=== PATIENT | female | born 1950 | race Caucasian/White ===

== ENCOUNTER → 2019-07-19 13:50 | Outpatient (CLI) | payer MEDICARE, MEDICAID, SELFPAY ==
--- NOTE | 2019-07-19 13:55 | VDUE_ITS ---
Reason For Study: ESRD, Pre op Right Arm Left Arm Right Cephalic Vein at the wrist measures Left Cephalic Vein at the wrist measures 0.13 x 0.13 cm. 0.18 x 0.18 cm. Right Cephalic Vein in the forearm measures Left Cephalic Vein in the forearm measures 0.19 x 0.20 cm. 0.25 x 0.23 cm. Right Cephalic Vein below antecub measures Left Cephalic Vein below antecub measures 0.27 x 0.25 cm. 0.25 x 0.24 cm. Right Cephalic Vein above antecub measures Left Cephalic Vein above antecub measures 0.19 x 0.22 cm. 0.21 x 0.21 cm. Right Cephalic Vein mid bicep measures 0.19 Left Cephalic Vein at mid bicep measures x 0.20 cm. 0.21 x 0.25 cm. Right Cephalic Vein at the shoulder measures Left Cephalic Vein at the shoulder measures 0.18 x 0.19 cm. 0.31 x 0.30 cm. Right Basilic Vein at the origin measures Basilic vein at origin measures 0.39 x 0.40 0.16 x 0.16 cm. cm. Right Basilic Vein mid bicep measures 0.18 x Basilic vein at bicep measures 0.34 x 0.35 0.18 cm. cm. Right Basilic Vein above antecub measures Basilic vein above antecub measures 0.31 x 0.20 x 0.21 cm. 0.34 cm. Right Brachial artery measures 0.41 x 0.44 Left Brachial artery measures 0.41 x 0.40 cm cm with a velocity of 78.6 cm/sec. with a velocity of 80.6 cm/sec. Right Radial artery measures 0.19 x 0.18 cm Left Radial artery measures 0.11 x 0.12 cm with a velocity of 46.2 cm/sec. with a velocity of 115.1 cm/sec. Interpretation Summary Patent and compressible bilateral upper extremity cephalic and basilic veins as noted. Bilateral cephalic veins appear to be marginal in diameter. Right upper arm basilic vein is diminutive. Left upper arm basilic vein is adequate. Bilateral brachial arteries have adequate diameter and flow. Bilateral radial arteries are diminutive in size Ordering Physician: Patricia Malcolm Referring Physician: Citlali Nguyen Performed By: Leslie Vázquez RVT ?
== END ==
PROVIDERS: Family Provider Nurse Practitioner Family; PCP Nurse Practitioner Family; Referring Provider Student in an Organized Health Care Education/Training Program; Visit Provider Student in an Organized Health Care Education/Training Program
DX: Z01.818 Encounter for other preprocedural examination (principal); N18.6 End stage renal disease
CPT/HCPCS: 93970; 93971; G0365

== ENCOUNTER 2019-08-06 19:02 | Inpatient (IN) | payer MEDICARE, MEDICAID, SELFPAY ==
[2019-08-06 18:23] VITALS: BP 194/67; PULSE 85; RESP 20; TEMP 37.4; O2SAT 100; BMI 40.3
--- NOTE | 2019-08-06 19:13 | HP.PCM_ITS ---
History of Present Illness Date of Admission: 08/06/19 Chief Complaint: coughing. vomiting. The patient is a 68 year old F who on the third and today had coughing fits that led to vomiting. Current several occasions. Presented to [facility] with complaints and underwent a work-up. Work-up showed consolidation in the left thorax which may be chronic, according to the emergency room physician. Patient did receive IV fluids as well as hydromorphone. Patient states that she still feels nauseated and but is having vomiting but because of this she missed her dialysis on Tuesday and Tuesday. Patient normally goes to dialysis every Tuesday. They try to contact [facility] but it was. Patient second choice was here. Patient was to see Dr. Bobo for evaluation of fistula tomorrow. Patient denies similar symptoms in the past. [] Past Medical History Medical History: Medical History (Last Updated 08/06/19 @ 19:15 by Moe Wise DO) Diet-controlled diabetes mellitus E11.9 ESRD (end stage renal disease) N18.6 HTN (hypertension) I10 Allergies No Known Allergies Allergy (Verified 08/06/19 18:46) Lives: With Family Smoking Status: Former smoker Tobacco Use: Non-smoker Alcohol: None Drugs: None - *Family History Maternal History Items: - - No known kidney disease Review of Systems Constitutional: Reports: Anorexia, Malaise. Denies: Chills, Fever, Night Sweats Eyes: Denies: Blurred vision, Double vision HEENT: Denies: Head Aches, Sinus Congestion, Sinus Drainage Cardiovascular: Reports: Edema. Denies: Chest Pain Respiratory: Reports: Cough. Denies: Shortness of Breath Gastrointestinal: Reports: Nausea, Vomiting. Denies: Abdominal Pain Genitourinary: Reports: Dysuria. Denies: Frequency Musculoskeletal: Denies: Joint Pain, Joint Tenderness Skin: Denies: Rash, Wounds Neurological: Denies: Numbness, Tingling, Focal weakness Psychiatric: Denies: Anxiety, Depression Hematologic/ Lymphatic: Denies: Easy Bruising, Easy Bleeding, Hx of blood clot Comment: States that she has difficulty getting around her house and requires on family to assist her with activities of daily living. Review systems are otherwise negative except for as mentioned above and in the HPI. Patient does not recollect her current medications at this time. VTE Information - Inpt Only VTE Present on Admission: No VTE Mechan Device Prophylaxis: None VTE Pharm Prophylaxis ordered?: Yes - Physical Exam Vitals/I&O's: Vital Signs Temp Pulse Resp BP Pulse Ox 37.4 C H 85 20 H 194/67 H 100 08/06/19 18:23 08/06/19 18:23 08/06/19 18:23 08/06/19 18:23 08/06/19 18:23 Oxygen Flow Rate (L/min) 4 Oxygen Delivery Method Nasal Cannula Weight: 100 kg Body Mass Index (BMI) 40.3 General: Alert, Cooperative, - - Peers older than stated age. Afebrile. No respiratory distress. No conversational dyspnea. HEENT: Atraumatic, Normocephalic Oral: Moist Mucosa, No Gingival or Mucosal Lesions/ Ulcerations Neck: No Nodes, Trachea Midline Lungs: Clear to auscultation, Normal air movement, No rhonchi, No wheeze, No rales Cardiovascular: Regular rate, Regular Rhythm, Normal S1, Normal S2, No murmurs Abdomen: Bowel Sounds Present, Soft, Non Tender, Non-Distended, No Hepato- splenomegaly Extremities: No edema, No Calf Tenderness Skin: No rashes, No breakdown Musculoskeletal: Cachexia, Muscle Wasting Neurological: Deep Tendon Reflexes 2+/4 and Symmetrical, Muscle tone normal Psych/Mental Status: Appropriate, Flat Affect Chest x-ray report from outside hospital reports opacification in the left thorax. Prominent interstitium present in the right lower thorax. I was unable to upload the images on the computer. Labs: CBC: White count 17.1, hemoglobin 11, platelets 360 BMP: Sodium 136, potassium 4.9, CO2 23.8, glucose 107, creatinine 3.1 CRP of 1.69, lipase 7, lactate of 10.9 which is within normal limits of their parameters which is 4.5-18 C. difficile toxin negative, C. difficile antigen negative Current Medications Acetaminophen (Tylenol) 650 mg PO Q6H PRN PRN PRN Reason: Pain Score 1-3/Temp > 100.7 F Dextrose (D50w Syringe) 0 gm IV X1 PRN; Protocol PRN Reason: Hypoglycemia Glucagon () 1 mg IM .X1 PRN PRN Reason: Hypoglycemia Guaifenesin/Codeine Phosphate (Robitussin Ac) 5 ml PO Q6H PRN PRN PRN Reason: coughing fits Insulin Human Lispro (Humalog Kwikpen (Bkc)) 0 unit SC TIDAC MARTHA; Protocol Ondansetron HCl (Zofran) 4 mg IV Q8H PRN PRN PRN Reason: NAUSEA/VOMITING Sodium Chloride () 10 - 40 ml IV UD PRN PRN Reason: SALINE FLUSH Assessment/Plan 1. Sepsis * Present on admission * White count of 17,000+ a respiratory rate of greater than 20 to meet 2 out of 4 Sirs criteria * May be related with pneumonia versus a viral etiology * Follow-up cultures and titers and treat accordingly 2. Possible gram-negative pneumonia * Per the emergency room physician, patient has chronic opacification of the left thorax but I do not have any prior x-rays to compare to * Given the septic picture, we will treat her for suspected healthcare acquired pneumonia as patient is dialysis patient with Pipracil and/tazobactam * Pulmonary toilet with chest physiotherapy and bronchodilators * Check sputum culture and antigens for Streptococcus and Legionella 3. End-stage renal disease * On hemodialysis every Tuesday * She missed her last 2 dialysis sessions because of her vomiting * Discussed with Dr. Schwartz, who will see the patient in consultation * Despite missing her to last dialysis sessions, electrolytes are fairly unremarkable * Patient was to follow-up with Dr. Bobo for fistula evaluation on the . I told patient that that will need to be rescheduled for another time as outpatient. 4. Hypertension * Will need to continue with her home medications once were able to obtain that * Will have as needed medications available 5. Diet-controlled diabetes * Check blood sugars with this and treat with sliding scale if necessary 6. Debility * Not sure how far off patient is from her baseline but her baseline sounds pretty poor * Physical and occupational therapy evaluate and treat * Patient states clearly that she does not want to go somewhere for rehab so ultimately the plan would be for her to return home with or without home care 7. VTE prophylaxis: Moderate risk. Subcu heparin Code Visit Inpatient E&M: 03301 Init Hosp L3
--- NOTE | 2019-08-06 19:28 | NURSING ---
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
--- NOTE | 2019-08-06 20:15 | RAD_ITS ---
STUDY: X-RAY CHEST REASON FOR EXAM: Female, 68 years old. NAUSEA AND VOMITING, SOB. TECHNIQUE: AP and lateral views of the chest. The images are under penetrated. COMPARISON: None. FINDINGS: Right temporary dialysis catheter via right internal jugular approach, catheter tips over the cavoatrial junction/upper right atrium level. Patient is rotated. Opacification in the left base along the left lower chest wall and posterior sulcus. There is no demonstrated pleural abnormality. Normal size heart. Normal mediastinum and magalie. Normal visualized pulmonary arteries. There is atherosclerotic calcification of the aortic arch with tortuosity. The upper abdominal soft tissues are obscured. Obesity. There is demineralization of osseous structures. RAD/Chest PA and Lateral IMPRESSION: Pleural fluid and/or atelectasis in the left base. No pulmonary edema or congestive heart failure. Osteopenia. Electronically Signed: Eli Nelson MD at 6:48 EST , Service support ,
[2019-08-06 21:02] VITALS: BP 181/72; PULSE 93; RESP 18; TEMP 37.2; O2SAT 94
[2019-08-06 21:26] LABS: Bacteria 0 SEEN /hpf (None Seen); Mucous, Urine 0 SEEN /hpf (<or=2+); Red Blood Cells-Urine 0 SEEN /hpf (0-5); Squamous Epithelial Cells - UA 0 SEEN /hpf (5-10)
[2019-08-06 21:52] LABS: Color, Urine Yellow (Yellow); Glucose, Dipstick 50 mg/dl (Normal); Ketone-Dipstick Negative (Negative); Leukocyte Esterase-Dipstick 500 /ul (Negative); Nitrite-Dipstick Negative (Negative); Occult Blood-Urine 250 /ul (Negative); Protein-Dipstick 500 mg/dl (Negative); Specific Gravity, Urine 1.015 (1.002-1.030); Urine Bilirubin Dipstick Negative (Negative); Urine Clarity Turbid (Clear); Urine Urobilinogen Normal (Normal)
[2019-08-06 21:53] LABS: White Blood Cells >100 SEEN /hpf (0-5)
[2019-08-06] MEDS: Heparin Injection (Vial) 5,000 UNIT/ML VIAL 5000 UNIT SC (22:01)
[2019-08-06] MEDS: Nystatin Powder 15gm Bottle 1 APPLIC TOPICAL (22:01)
[2019-08-06] MEDS: Acetaminophen 325 MG Tablet 650 MG PO (22:01)
[2019-08-06] MEDS: amLODIPine 5 MG Tablet PO (22:01)
[2019-08-06] MEDS: Atorvastatin Calcium 40 MG Tablet PO (22:01)
[2019-08-06] MEDS: Pantoprazole Sodium 40 MG Tablet PO (22:02)
[2019-08-06] MEDS: Zolpidem Tartrate 5 MG Tablet PO (22:02)
[2019-08-06] MEDS: Clonidine HCl 0.1 MG, Clonidine HCl 0.2 MG 0.3 MG PO (22:02)
[2019-08-06] MEDS: Meloxicam 15 MG Tablet PO (22:02)
[2019-08-06 22:48] VITALS: PULSE 79; RESP 18; O2SAT 97
[2019-08-06] MEDS: Ipratropium/Albuterol Sulfate 3 ML AMPUL.NEB INHALATION (22:48)
[2019-08-07] VITALS (9 sets, daily range): BP systolic 130–153; BP diastolic 62–96; PULSE 65–111; RESP 16–22; TEMP 37.1–37.8; O2SAT 96–100
[2019-08-07 06:22] LABS: Absolute Lymphocyte Count 1.01 X10^3/uL (0.83-4.51); Absolute Neutrophil Count 9.8 X10^3/uL (2.0-7.7); Basophil# 0.05 X10^3/uL; Basophil% 0.4 % (0-1); Eosinophil# 0.02 X10^3/uL; Eosinophils% 0.2 % (0-5); Hemoglobin 9.5 g/dL (12.0-15.0); Lymphocyte # 1.01 X10^3/ul (4.0); Lymphocyte % 8.7 % (19-41); Mean Corp Hgb Conc 28.8 g/dL (32-36); Mean Corpuscular Hgb 30.9 pg (27.0-32.0); Mean Corpuscular Volume 107.5 fL (81-99); Mean Platelet Vol. 9.9 fl (6.2-12.0); Monocyte# 0.71 X10^3/uL; Monocyte% 6.1 % (0-10); NRBC Flagged by Analyzer 0 % (0-5); Neutrophil % 84.3 % (47-70); POSITIVE MORPHOLOGY YES; Platelet Count 217 K/mm3 (150-450); RBC Distribution Width CV 16.4 % (11.6-14.6); RBC Distribution Width SD 65.5 fl (35.1-43.9); Red Blood Count 3.07 M/mm3 (4.2-5.4); White Blood Count 11.6 K/mm3 (4.4-11.0)
[2019-08-07 06:50] LABS: ALB/GLOB Ratio 0.6 RATIO (0.9-2.4); AST(SGOT) 14 U/L (15-37); Alanine Aminotransfer ALT/SGPT 7 U/L (13-56); Albumin, Serum 1.8 g/dL (3.2-5.0); Alkaline Phosphatase 68 U/L (45-117); Anion Gap 8 (5-15); BUN 39 mg/dL (7-18); BUN/Creat Ratio 12.1 RATIO (10-20); Calcium,Total 7.9 mg/dL (8.5-10.1); Chloride 108 mmol/L (98-107); Creatinine, Serum 3.23 mg/dL (0.55-1.02); Differential Indicated SCAN CRITERIA MET; EST Glomerular Filtration Rate 15 mL/min (>60); Est Glom Filt Rate - Afr Amer 18 mL/min (>60); Globulin 3.2 g/dL (2.2-4.2); Glucose 83 mg/dL (74-106); Potassium 4.8 mmol/L (3.5-5.1); Sodium Level 140 mmol/L (136-145); Thyroid Stim Hormone (TSH) 1.14 uIU/mL (0.358-3.74)
[2019-08-07 07:07] LABS: Differential Comment SCANNED; Hypochromasia 2+; Macrocytosis 3+; Microcytosis 1+; Schistocytes RARE
[2019-08-07] MEDS: Ipratropium/Albuterol Sulfate 3 ML AMPUL.NEB INHALATION ×4 (07:57→19:25)
[2019-08-07 08:11] LABS: Hemoglobin A1c 4.3 % (4.2-6.3)
[2019-08-07 08:19] LABS: Vitamin D,25 Hydroxy 6.8 ng/mL (29.95-100.01)
[2019-08-07] MEDS: Nystatin Powder 15gm Bottle 1 APPLIC TOPICAL ×2 (09:18→22:18)
[2019-08-07] MEDS: Citalopram 40 MG TABLET PO (09:31)
[2019-08-07] MEDS: Calcitriol 0.25 MCG Capsule PO (09:31)
[2019-08-07] MEDS: amLODIPine 5 MG Tablet PO ×2 (09:32→22:18)
[2019-08-07] MEDS: Clopidogrel Bisulfate 75 MG Tablet PO (09:32)
[2019-08-07] MEDS: Heparin Injection (Vial) 5,000 UNIT/ML VIAL 5000 UNIT SC ×2 (09:32→22:18)
[2019-08-07] MEDS: Acetaminophen 325 MG Tablet 650 MG PO ×2 (09:38→22:18)
--- NOTE | 2019-08-07 11:40 | CASEMGMT ---
RN CM Assessment Presentation: Sepsis, possible pneumonia. Intro role of CM and purpose of RN CM assessment to patient in room. Pt is sleepy, unable to participate fully in assessment. Pt gave permission for RN CM to contact Daughter. -Call to Daughter Michelle. Intro role of CM to her. Demographics, PCP and Pharmacy verified. Per Michelle, pt is bedbound. Does very little sitting up as she is easily fatigued. Family lifts her into wheelchair and vehicle to transfer her to Dialysis. Daughter states she does not wish to consider SNF on dc even for short term stay at this time. States pt had been to [facility] and did not have good experience. RN CM let daughter know recommendation was for short term SNF stay, but Home Health could be considered. PCP: Citlali Nguyen TELETYPEWRITER OPERATOR Specialists: Dr. Bobo-fistula placement evaluation. Daughter cancelled appt for today and will make f/u appt if needed. [facility] Prescription Benefit: yes Dialysis: [facility], [facility] LNOK: Daughter, Michelle Brown Living Arrangements: Lives with daughter in one story home. Daughter does all care needs and transportation. Transportation: Family drives DME: Hospital bed, trapeze, wheelchair HHC/SNF: HHC and SNF @ [facility] in past. Would like HHC again on dc. List of choices in area reviewed with daughter over the phone. Daughter did not remember which agency she used before, and would like to try and find their name prior to CM setting up Home Health.. SW Referral: Pt has passport services through [facility]. Patient DC goals: Home DC PLAN: undetermined. Recommendation is for SNF if daughter reconsiders, or HHC RN/PT if pt returns home. Veda WAYN RN ACM
--- NOTE | 2019-08-07 12:03 | CASEMGMT ---
Addendum entered by Yonis Bal 08/07/19 13:09: Call received from daughter Michelle, stating [facility] provided home therapy for pt in past and this would be first choice. [facility] phone: [phone]. Original Note: 08/07/19 11:40 - Case Management Note by MallyQuintina Acct Num: [id number] : 1950 Patient Age: 68 RN CM Assessment Presentation: Sepsis, possible pneumonia. Intro role of CM and purpose of RN CM assessment to patient in room. Pt is sleepy, unable to participate fully in assessment. Pt gave permission for RN CM to contact Daughter. -Call to Daughter Michelle. Intro role of CM to her. Demographics, PCP and Pharmacy verified. Per Michelle, pt is bedbound. Does very little sitting up as she is easily fatigued. Family lifts her into wheelchair and vehicle to transfer her to Dialysis. Daughter states she does not wish to consider SNF on dc even for short term stay at this time. States pt had been to [facility] and did not have good experience. RN CM let daughter know recommendation was for short term SNF stay, but Home Health could be considered. PCP: Citlali Nguyen, ADULT NEUROPSYCHOLOGIST Specialists: Dr. Bobo-fistula placement evaluation. Daughter cancelled appt for today and will make f/u appt if needed. [facility] Prescription Benefit: yes Dialysis: MWF, [facility] L[facility]K: Daughter, Michelle Brown Living Arrangements: Lives with daughter in one story home. Daughter does all care needs and transportation. Transportation: Family drives DME: Hospital bed, trapeze, wheelchair HHC/SNF: HHC and SNF @ [facility] in past. Would like HHC again on dc. List of choices in area reviewed with daughter over the phone. Daughter did not remember which agency she used before, and would like to try and find their name prior to CM setting up Home Health.. SW Referral: Pt has passport services, possible SNF placement Patient DC goals: Home DC PLAN: undetermined. Recommendation is for SNF if daughter reconsiders, or HHC RN/PT if pt returns home. Veda BSN RN ACM
[2019-08-07 12:21] LABS: Bedside Glucose 90 mg/dL (70-110)
--- NOTE | 2019-08-07 12:32 | PN_ITS ---
<Stephanie Weems - Last Filed: 08/07/19 12:42> Subjective: Patient seen and examined. Having shaking chills. Denies fever. Denies other current complaints. - Physical Exam Vitals/I&O's: Vital Signs Temp Pulse Resp BP Pulse Ox 100.1 F H 66 20 H 150/69 H 99 08/07/19 09:20 08/07/19 11:14 08/07/19 11:14 08/07/19 09:20 08/07/19 09:20 Oxygen Flow Rate (L/min) 2 Oxygen Delivery Method Nasal Cannula Weight: 220 lb 7.396 oz Body Mass Index (BMI) 40.3 Intake and Output for Last 24 Hours 08/05/19 08/06/19 08/07/19 23:59 23:59 23:59 Intake Total 500 / 500 Balance 500 / 500 General: Alert, Oriented x3, Cooperative HEENT: Atraumatic, PERRLA, EOMI, Normocephalic Neck: Supple, No JVD, Negative Carotid Bruits Lungs: Clear to auscultation, Diminished Cardiovascular: Regular rate, Regular Rhythm, Normal S1, Normal S2, No murmurs Abdomen: Bowel Sounds Present, Soft, Non Tender, Non-Distended, Obese Extremities: No clubbing, No cyanosis, No edema, Capillary Refill Less than 3 Seconds Skin: No rashes, No breakdown Musculoskeletal: No Tenderness to Palpation of Joints or Extremities Neurological: Cranial nerves II-XII grossly intact, Neuro grossly intact Psych/Mental Status: Normal Affect, Appropriate Microbiology Past 72 Hours 08/06/19 19:59 Blood Culture (Wb) - Venous Blood Culture - Preliminary 08/06/19 19:49 Blood Culture (Wb) - Venous Bacteria Detection (PCR) - Final Staphylococcus aureus mecA Resistance Marker 08/06/19 19:49 Blood Culture (Wb) - Venous Blood Culture - Preliminary 08/06/19 22:50 Mucosa - Nose Influenza Types A,B Direct FA (THAIS) - Final 08/06/19 20:48 Urine Catheter - Catheter Legionella Antigen - Final 08/06/19 20:48 Urine Catheter - Catheter Streptococcus pneumoniae Antigen (M - Final Laboratory Results 08/06/19 20:48: Urine Color Yellow, Urine Clarity Turbid, Urine pH 6.0, Ur Specific [place] 1.015, Urine Protein 500 H, Urine Glucose (UA) 50 H, Urine Ketones Negative, Urine Occult Blood 250 H, Urine Nitrite Negative, Urine B ilirubin Negative, Urine Urobilinogen Normal, Ur Leukocyte Esterase 500 H, Urine RBC 0 SEEN, Urine WBC >100 SEEN, Ur Squamous Epith Cells 0 SEEN, Urine Bacteria 0 SEEN, Urine Mucus 0 SEEN 08/07/19 05:30: WBC 11.6 H, RBC 3.07 L, Hgb 9.5 L, Hct 33.0 L, MCV 107.5 H, MCH 30.9, MCHC 28.8 L, RDW Std Deviation 65.5 H, RDW Coeff of Liza 16.4 H, Plt Count 217, MPV 9.9, Immature Gran % (Auto) 0.300, Neut % (Auto) 84.3 H, Lymph % (Auto) 8.7 L, Fult[place] % (Auto) 6.1, Eos % (Auto) 0.2, Baso % (Auto) 0.4, Absolute Neuts (auto) 9.8 H, Absolute Lymphs (auto) 1.01, Nucleated RBC % 0, Differential Comment SCANNED, Hypochromasia 2+, Microcytosis 1+, Macrocytosis 3+, Schistocytes RARE 08/07/19 05:30: Sodium 140, Potassium 4.8, Chloride 108 H, Carbon Dioxide 24.0, Anion Gap 8, BUN 39 H, Creatinine 3.23 H, Estim Creat Clear Calc 13.00, Est GFR (MDRD) Af Amer 18 L, Est GFR (MDRD) Non-Af 15 L, BUN/Creatinine Ratio 12.1, Glucose 83, Calcium 7.9 L, Total Bilirubin 0.40, AST 14 L, ALT 7 L, Alkaline Phosphatase 68, Total Protein 5.0 L, Albumin 1.8 L, Globulin 3.2, Albumin/Globulin Ratio 0.6 L, TSH 1.14 08/07/19 05:30: Vitamin D 25-Hydroxy 6.8 L 08/07/19 05:30: Hemoglobin A1c 4.3 08/07/19 11:39: POC Glucose 90 Current Medications Acetaminophen (Tylenol) 650 mg PO Q6H PRN PRN PRN Reason: Pain Score 1-10/Temp > 100.7 F Last Admin: 08/07/19 09:38 Dose: 650 mg Documented by: Albuterol Sulfate (Ventolin Aerosols) 2.5 mg INHALATION Q2H PRN PRN PRN Reason: SHORTNESS OF BREATH Albuterol/Ipratropium (Duoneb) 3 ml INHALATION Q4H.RT [facility] Last Admin: 08/07/19 11:14 Dose: 3 ml Documented by: Amlodipine Besylate (Norvasc) 5 mg PO BID [facility] Last Admin: 08/07/19 09:32 Dose: 5 mg Documented by: Atorvastatin Calcium (Lipitor) 40 mg PO QHS [facility] Last Admin: 08/06/19 22:01 Dose: 40 mg Documented by: Calcitriol (Rocaltrol) 0.25 mcg PO DAILY [facility] Last Admin: 08/07/19 09:31 Dose: 0.25 mcg Documented by: Citalopram Hydrobromide (Celexa) 40 mg PO DAILY [facility] Last Admin: 08/07/19 09:31 Dose: 40 mg Documented by: Clonidine 0.1 mg/ Clonidine 0. (2 mg) 0.3 mg PO Q6H PRN PRN PRN Reason: SBP > 180 Last Admin: 08/06/19 22:02 Dose: 0.3 mg Documented by: Clopidogrel Bisulfate (Plavix) 75 mg PO DAILY [facility] Last Admin: 08/07/19 09:32 Dose: 75 mg Documented by: Glucagon () 1 mg IM .X1 PRN PRN Reason: Hypoglycemia Guaifenesin/Codeine Phosphate (Robitussin Ac) 5 ml PO Q6H PRN PRN PRN Reason: coughing fits Heparin Sodium (Porcine) (Heparin Na) 5,000 unit SC Q12 [facility] Last Admin: 08/07/19 09:32 Dose: 5,000 unit Documented by: Piperacillin Sod/Tazobactam (Sod 3.375 gm/ Sodium Chloride) 50 mls @ 12.5 mls/hr IV Q8 [facility] Stop: 08/13/19 22:01 Last Infusion: 08/07/19 10:37 Dose: Infused Documented by: Dextrose (Dextrose 10%-Water) 250 mls @ 999 mls/hr IV .Q16M PRN; Protocol PRN Reason: HYPOGLYCEMIA Vancomycin IV Pharmacy to Dose (1 ea/ Sodium Chloride) 500 mls @ 250 mls/hr IV X1 PRN; Protocol PRN Reason: Rx to Dose Vancomycin HCl 1,500 mg/ (Sodium Chloride) 530 mls @ 250 mls/hr IV X1 ONE Stop: 08/07/19 15:07 Insulin Human Lispro (Humalog Kwikpen (Bkc)) 0 unit SC TIDAC [facility]; Protocol Last Admin: 08/07/19 11:43 Dose: Not Given Documented by: Meloxicam (Mobic) 15 mg PO QHS [facility] Last Admin: 08/06/19 22:02 Dose: 15 mg Documented by: Non-Formulary Medication (Cetirizine Hcl) 10 mg PO QHS [facility] Nystatin (Mycostatin Powder) 1 applic TOPICAL BID [facility]; Protocol Last Admin: 08/07/19 09:18 Dose: 1 applicatio Documented by: Ondansetron HCl (Zofran) 4 mg IV Q8H PRN PRN PRN Reason: NAUSEA/VOMITING Pantoprazole Sodium (Protonix) 40 mg PO QHS [facility] Last Admin: 08/06/19 22:02 Dose: 40 mg Documented by: Sodium Chloride () 10 - 40 ml IV UD PRN PRN Reason: SALINE FLUSH Zolpidem Tartrate (Ambien (Generic)) 5 mg PO QHS [facility] Last Admin: 08/06/19 22:02 Dose: 5 mg Documented by: Medical Necessity - Tobacco Use Smoking Status: Former smoker Tobacco Use: Non-smoker Assessment/Plan 1. Sepsis with MRSA bacteremia-unclear source. Sputum and urine culture pending. Chest x-ray admission with pleural fluid and/or atelectasis in the left base. Continue IV Zosyn and IV vancomycin. ID consult. Repeat blood cultures in a.m. 2. Possible healthcare acquired pneumonia-urine negative for strep and Legionella. On IV Zosyn and IV vancomycin as noted above. Albuterol and DuoNeb aerosols. Sputum culture pending. 3. End-stage renal disease on hemodialysis-nephrology consulted. Patient following with Dr. Bobo for fistula evaluation. 4. Hypertension-stable, continue amlodipine regimen. 5. Type 2 diabetes mellitus-diet controlled. 6. Debility- PT/OT. 7. Obesity-encouraged diet lifestyle modifications. 8. Depression-continue Celexa regimen. 9. Hyperlipidemia-continue statin. 10. GERD-continue omeprazole regimen. 11. Anemia of chronic disease-unknown baseline, trend CBC. DVT prophylaxis-heparin subcu This patient was seen by MAYDA Del Cid under the supervision of Dr. Corrigan. <Pollo Corrigan F - Last Filed: 08/07/19 13:09> - Physical Exam Vitals/I&O's: Vital Signs Temp Pulse Resp BP Pulse Ox 100.1 F H 66 20 H 150/69 H 99 08/07/19 09:20 08/07/19 11:14 08/07/19 11:14 08/07/19 09:20 08/07/19 09:20 Oxygen Flow Rate (L/min) 2 Oxygen Delivery Method Nasal Cannula Weight: 220 lb 7.396 oz Body Mass Index (BMI) 40.3 Intake and Output for Last 24 Hours 08/05/19 08/06/19 08/07/19 23:59 23:59 23:59 Intake Total 500 / 500 Balance 500 / 500 Microbiology Past 72 Hours 08/06/19 19:59 Blood Culture (Wb) - Venous Blood Culture - Preliminary 08/06/19 19:49 Blood Culture (Wb) - Venous Bacteria Detection (PCR) - Final Staphylococcus aureus mecA Resistance Marker 08/06/19 19:49 Blood Culture (Wb) - Venous Blood Culture - Preliminary 08/06/19 22:50 Mucosa - Nose Influenza Types A,B Direct FA (THAIS) - Final 08/06/19 20:48 Urine Catheter - Catheter Legionella Antigen - Final 08/06/19 20:48 Urine Catheter - Catheter Streptococcus pneumoniae Antigen (M - Final Laboratory Results 08/06/19 20:48: Urine Color Yellow, Urine Clarity Turbid, Urine pH 6.0, Ur Specific [place] 1.015, Urine Protein 500 H, Urine Glucose (UA) 50 H, Urine Ketones Negative, Urine Occult Blood 250 H, Urine Nitrite Negative, Urine Bilirubin Negative, Urine Urobilinogen Normal, Ur Leukocyte Esterase 500 H, Urine RBC 0 SEEN, Urine WBC >100 SEEN, Ur Squamous Epith Cells 0 SEEN, Urine Bacteria 0 SEEN, Urine Mucus 0 SEEN 08/07/19 05:30: WBC 11.6 H, RBC 3.07 L, Hgb 9.5 L, Hct 33.0 L, MCV 107.5 H, MCH 30.9, MCHC 28.8 L, RDW Std Deviation 65.5 H, RDW Coeff of Liza 16.4 H, Plt Count 217, MPV 9.9, Immature Gran % (Auto) 0.300, Neut % (Auto) 84.3 H, Lymph % (Auto) 8.7 L, [place] % (Auto) 6.1, Eos % (Auto) 0.2, Baso % (Auto) 0.4, Absolute Neuts (auto) 9.8 H, Absolute Lymphs (auto) 1.01, Nucleated RBC % 0, Differential Comment SCANNED, Hypochromasia 2+, Microcytosis 1+, Macrocytosis 3+, Schistocytes RARE 08/07/19 05:30: Sodium 140, Potassium 4.8, Chloride 108 H, Carbon Dioxide 24.0, Anion Gap 8, BUN 39 H, Creatinine 3.23 H, Estim Creat Clear Calc 13.00, Est GFR (MDRD) Af Amer 18 L, Est GFR (MDRD) Non-Af 15 L, BUN/Creatinine Ratio 12.1, Glucose 83, Calcium 7.9 L, Total Bilirubin 0.40, AST 14 L, ALT 7 L, Alkaline Phosphatase 68, Total Protein 5.0 L, Albumin 1.8 L, Globulin 3.2, Albumin/Globulin Ratio 0.6 L, TSH 1.14 08/07/19 05:30: Vitamin D 25-Hydroxy 6.8 L 08/07/19 05:30: Hemoglobin A1c 4.3 08/07/19 11:39: POC Glucose 90 Current Medications Acetaminophen (Tylenol) 650 mg PO Q6H PRN PRN PRN Reason: Pain Score 1-10/Temp > 100.7 F Last Admin: 08/07/19 09:38 Dose: 650 mg Documented by: Albuterol Sulfate (Ventolin Aerosols) 2.5 mg INHALATION Q2H PRN PRN PRN Reason: SHORTNESS OF BREATH Albuterol/Ipratropium (Duoneb) 3 ml INHALATION Q4H.RT [facility] Last Admin: 08/07/19 11:14 Dose: 3 ml Documented by: Amlodipine Besylate (Norvasc) 5 mg PO BID [facility] Last Admin: 08/07/19 09:32 Dose: 5 mg Documented by: Atorvastatin Calcium (Lipitor) 40 mg PO QHS [facility] Last Admin: 08/06/19 22:01 Dose: 40 mg Documented by: Calcitriol (Rocaltrol) 0.25 mcg PO DAILY [facility] Last Admin: 01/07/20 09:31 Dose: 0.25 mcg Documented by: Citalopram Hydrobromide (Celexa) 40 mg PO DAILY [facility] Last Admin: 08/07/19 09:31 Dose: 40 mg Documented by: Clonidine 0.1 mg/ Clonidine 0. (2 mg) 0.3 mg PO Q6H PRN PRN PRN Reason: SBP > 180 Last Admin: 08/06/19 22:02 Dose: 0.3 mg Documented by: Clopidogrel Bisulfate (Plavix) 75 mg PO DAILY [facility] Last Admin: 08/07/19 09:32 Dose: 75 mg Documented by: Glucagon () 1 mg IM .X1 PRN PRN Reason: Hypoglycemia Guaifenesin/Codeine Phosphate (Robitussin Ac) 5 ml PO Q6H PRN PRN PRN Reason: coughing fits Heparin Sodium (Porcine) (Heparin Na) 5,000 unit SC Q12 [facility] Last Admin: 08/07/19 09:32 Dose: 5,000 unit Documented by: Piperacillin Sod/Tazobactam (Sod 3.375 gm/ Sodium Chloride) 50 mls @ 12.5 mls /hr IV Q8 [facility] Stop: 08/13/19 22:01 Last Infusion: 08/07/19 10:37 Dose: Infused Documented by: Dextrose (Dextrose 10%-Water) 250 mls @ 999 mls/hr IV .Q16M PRN; Protocol PRN Reason: HYPOGLYCEMIA Vancomycin IV Pharmacy to Dose (1 ea/ Sodium Chloride) 500 mls @ 250 mls/hr IV X1 PRN; Protocol PRN Reason: Rx to Dose Vancomycin HCl 1,500 mg/ (Sodium Chloride) 530 mls @ 250 mls/hr IV X1 ONE Stop: 08/07/19 19:07 Insulin Human Lispro (Humalog Kwikpen (Bkc)) 0 unit SC TIDAC [facility]; Protocol Last Admin: 08/07/19 11:43 Dose: Not Given Documented by: Meloxicam (Mobic) 15 mg PO QHS [facility] Last Admin: 08/06/19 22:02 Dose: 15 mg Documented by: Non-Formulary Medication (Cetirizine Hcl) 10 mg PO QHS [facility] Nystatin (Mycostatin Powder) 1 applic TOPICAL BID [facility]; Protocol Last Admin: 08/07/19 09:18 Dose: 1 applicatio Documented by: Ondansetron HCl (Zofran) 4 mg IV Q8H PRN PRN PRN Reason: NAUSEA/VOMITING Pantoprazole Sodium (Protonix) 40 mg PO QHS [facility] Last Admin: 08/06/19 22:02 Dose: 40 mg Documented by: Sodium Chloride () 10 - 40 ml IV UD PRN PRN Reason: SALINE FLUSH Zolpidem Tartrate (Ambien (Generic)) 5 mg PO QHS [facility] Last Admin: 08/06/19 22:02 Dose: 5 mg Documented by: Code Visit Addendum: Dr. Corrigan I personally examined the patient and reviewed the chart. I agree with the above. 68-year-old female who presented to an outside hospital with significant episodes of coughing leading to vomiting. At that outside hospital she had a work-up that showed a consolidation in the left thorax which may be chronic per report. She also is a dialysis patient and was scheduled to see Dr. Wylie for evaluation of her fistula today. On admission she had signs of sepsis with unclear source however today her blood culture PCR came back positive for MRSA. She was started on vancomycin and continued on Zosyn. Her sputum cultures and antigens for strep and Legionella were negative however given this positive bacteremia result we will repeat blood cultures in the morning and start her on vancomycin today. We will consult infectious disease as well though source is unclear at the moment, UA was negative for any urine bacteria but positive for urine leukocyte esterase, urine culture is pending. Inpatient E&M: 46239 Subs Hosp L2
--- NOTE | 2019-08-07 12:52 | PCM.RX.CS ---
Consult Pharmacy has been consulted to manage selected antiobiotic: Vancomycin Type of Consult: New start Suspected Infection: Bacteremia Labs: Sodium 140 mmol/L (136-145) 08/07/19 05:30 Potassium 4.8 mmol/L (3.5-5.1) 08/07/19 05:30 Chloride 108 mmol/L (98-107) H 08/07/19 05:30 Carbon Dioxide 24.0 mmol/L (21.0-32.0) 08/07/19 05:30 Anion Gap 8 (5-15) 08/07/19 05:30 BUN 39 mg/dL (7-18) H 08/07/19 05:30 Creatinine 3.23 mg/dL (0.55-1.02) H 08/07/19 05:30 Est GFR (MDRD) Af Amer 18 mL/min (>60) L 08/07/19 05:30 Est GFR (MDRD) Non-Af 15 mL/min (>60) L 08/07/19 05:30 BUN/Creatinine Ratio 12.1 RATIO (10-20) 08/07/19 05:30 Glucose 83 mg/dL (74-106) 08/07/19 05:30 Microbiology: Microbiology 08/06/19 19:59 Blood Culture (Wb) - Venous Blood Culture - Preliminary 08/06/19 19:49 Blood Culture (Wb) - Venous Bacteria Detection (PCR) - Final Staphylococcus aureus mecA Resistance Marker 08/06/19 19:49 Blood Culture (Wb) - Venous Blood Culture - Preliminary 08/06/19 22:50 Mucosa - Nose Influenza Types A,B Direct FA (THAIS) - Final 08/06/19 20:48 Urine Catheter - Catheter Legionella Antigen - Final 08/06/19 20:48 Urine Catheter - Catheter Streptococcus pneumoniae Antigen (M - Final Weight used for dosin kg Estimated Creatinine Clearance: 18.1 Goal Trough: 15-20 mcg/mL Pharmacy Plan for Drug Dosing: Pt is on HD. Usual schedule is MWF. Has missed her last 2 sessions and will be dialyzed later today. Not sure when next HD session will occur at this time. 1. Give 1500mg dose today after dialysis 2. Check with nursing tomorrow to see when next dialysis session will be. 3. Order trough and 2nd dose of vancomycin once HD schedule has been established. 4. Pharmacy Service will continue to monitor and adjust dosing as required.
--- NOTE | 2019-08-07 13:11 | CASEMGMT ---
Social Work Note CATALINA placed a call to [facility]. Pt has PASSPORT services. Pt has Personal Care for 2 hours Tuesday, Tuesday, Tuesday and Tuesday through [facility]. Pt also has Meals on Wheels. Pt's CM is Tia Bookless ([phone]). SW placed a call to Tia and left her a message informing her of pt's admission to [facility]. CATALINA also placed a call to [facility] [place] office. CATALINA spoke with Iman who states pt was active with Palliative from end of summer last year to fall. Pt was then active with Hospice in May but revoked Hospice at a visit to [facility]. In July [facility] received another referral for Palliative but pt didn't sign with Palliative. Leslie Orellana [employer] TRADER, [employer] OPERATOR
--- NOTE | 2019-08-07 15:13 | CON.PCM_ITS ---
Consultation - Renal 08/07/19 PCP/ Referring MD: Requesting physician: Moe Wise MD Primary care physician: MAYDA Sanches Reason for Consultation:: ESRD HD MWF - History of Present Illness History of Present Illness: The patient is a 68 year old obese, debilitated F with ESRD due to diabetes on hemodialysis at [facility] dialysis in [facility] since June 2019 with tunneled dialysis catheter. Her primary ground instructor basic is Dr. Cam. Her last dialysis was in observance of holiday schedule. She then missed her treatment last Tuesday and yesterday. She was scheduled to see Dr. Bobo today as outpt for AVF placement. She is scheduled to receive her treatment today. She was seen in [facility] ER for complains of weakness, nausea, vomiting, diarrhea that started yesterday. She has shaking chills that started this admission with cough. Denied shortness of breath or chest pain. She was transferred to [facility] for continued management. She is unable to ambulate past 4 months. She lives at home with her daughter. - Allergies Allergies: Allergies loratadine Allergy (Verified 08/06/19 20:11) Unknown tape Allergy (Uncoded 08/06/19 20:11) Rash - Current Medications Current Medications: Current Medications Acetaminophen (Tylenol) 650 mg PO Q6H PRN PRN PRN Reason: Pain Score 1-10/Temp > 100.7 F Last Admin: 08/07/19 09:38 Dose: 650 mg Documented by: Albuterol Sulfate (Ventolin Aerosols) 2.5 mg INHALATION Q2H PRN PRN PRN Reason: SHORTNESS OF BREATH Albuterol/Ipratropium (Duoneb) 3 ml INHALATION Q4H.RT [facility] Last Admin: 08/07/19 11:14 Dose: 3 ml Documented by: Amlodipine Besylate (Norvasc) 5 mg PO BID [facility] Last Admin: 08/07/19 09:32 Dose: 5 mg Documented by: Atorvastatin Calcium (Lipitor) 40 mg PO QHS [facility] Last Admin: 08/06/19 22:01 Dose: 40 mg Documented by: Calcitriol (Rocaltrol) 0.25 mcg PO DAILY [facility] Last Admin: 08/07/19 09:31 Dose: 0.25 mcg Documented by: Cetirizine HCl (Zyrtec) 10 mg PO QHS [facility] Citalopram Hydrobromide (Celexa) 40 mg PO DAILY [facility] Last Admin: 08/07/19 09:31 Dose: 40 mg Documented by: Clonidine 0.1 mg/ Clonidine 0. (2 mg) 0.3 mg PO Q6H PRN PRN PRN Reason: SBP > 180 Last Admin: 08/06/19 22:02 Dose: 0.3 mg Documented by: Clopidogrel Bisulfate (Plavix) 75 mg PO DAILY [facility] Last Admin: 08/07/19 09:32 Dose: 75 mg Documented by: Glucagon () 1 mg IM .X1 PRN PRN Reason: Hypoglycemia Guaifenesin/Codeine Phosphate (Robitussin Ac) 5 ml PO Q6H PRN PRN PRN Reason: coughing fits Heparin Sodium (Porcine) (Heparin Na) 5,000 unit SC Q12 [facility] Last Admin: 08/07/19 09:32 Dose: 5,000 unit Documented by: Piperacillin Sod/Tazobactam (Sod 3.375 gm/ Sodium Chloride) 50 mls @ 12.5 mls/hr IV Q8 [facility] Stop: 08/13/19 22:01 Last Admin: 08/07/19 13:18 Dose: 12.5 mls/hr Documented by: Dextrose (Dextrose 10%-Water) 250 mls @ 999 mls/hr IV .Q16M PRN; Protocol PRN Reason: HYPOGLYCEMIA Vancomycin IV Pharmacy to Dose (1 ea/ Sodium Chloride) 500 mls @ 250 mls/hr IV X1 PRN; Protocol PRN Reason: Rx to Dose Vancomycin HCl 1,500 mg/ (Sodium Chloride) 530 mls @ 250 mls/hr IV X1 ONE Stop: 08/07/19 19:07 Insulin Human Lispro (Humalog Kwikpen (Bkc)) 0 unit SC TIDAC [facility]; Protocol Last Admin: 08/07/19 11:43 Dose: Not Given Documented by: Meloxicam (Mobic) 15 mg PO QHS [facility] Last Admin: 08/06/19 22:02 Dose: 15 mg Documented by: Nystatin (Mycostatin Powder) 1 applic TOPICAL BID [facility]; Protocol Last Admin: 08/07/19 09:18 Dose: 1 applicatio Documented by: Ondansetron HCl (Zofran) 4 mg IV Q8H PRN PRN PRN Reason: NAUSEA/VOMITING Pantoprazole Sodium (Protonix) 40 mg PO QHS [facility] Last Admin: 08/06/19 22:02 Dose: 40 mg Documented by: Sodium Chloride () 10 - 40 ml IV UD PRN PRN Reason: SALINE FLUSH Zolpidem Tartrate (Ambien (Generic)) 5 mg PO QHS [facility] Last Admin: 08/06/19 22:02 Dose: 5 mg Documented by: - Past Surgical History Surgical History: - - TDC placement - Social History Smoking Status: Former smoker Alcohol: None Drugs: None - Family History Maternal History Items: - - No known kidney disease Review of Systems Constitutional: Reports: Anorexia, Chills, Weakness, Fatigue HEENT: Denies: Head Aches Cardiovascular: Denies: Chest Pain Respiratory: Reports: Cough. Denies: Shortness of Breath Gastrointestinal: Reports: Diarrhea, Nausea, Vomiting. Denies: Abdominal Pain Genitourinary: Denies: Dysuria Skin: Denies: Rash Hematologic/ Lymphatic: Reports: Anemia Patient Problems: Active and Suspected Problems (Last Updated 08/06/19 @ 19:15 by Moe Wise DO) Sepsis (Acute) - Physical Exam Vitals/I&O's: Vital Signs Temp Pulse Resp BP Pulse Ox 100.0 F H 77 18 153/96 H 100 08/07/19 14:50 08/07/19 14:50 08/07/19 14:50 08/07/19 14:50 08/07/19 14:50 Oxygen Flow Rate (L/min) 2 Oxygen Delivery Method Nasal Cannula Weight: 100 kg Body Mass Index (BMI) 40.3 Intake and Output for Last 24 Hours 08/05/19 08/06/19 08/07/19 23:59 23:59 23:59 Intake Total 500 / 500 Balance 500 / 500 General: Alert, Oriented x3, Cooperative, No apparent distress Oral: Dry Mucosa Neck: Supple Lungs: Clear to auscultation Cardiovascular: Regular rate, Murmur Abdomen: Bowel Sounds Present, Soft, Non Tender, Non-Distended, Obese Extremities: No edema Skin: No rashes Musculoskeletal: No Muscle Wasting, - - generalized weakness, inambulatory Neurological: - Psych/Mental Status: Normal Affect, Appropriate, Alert and oriented to time, place, person, mood and affect Microbiology Past 72 Hours 08/06/19 19:59 Blood Culture (Wb) - Venous Blood Culture - Preliminary 08/06/19 19:49 Blood Culture (Wb) - Venous Bacteria Detection (PCR) - Final Staphylococcus aureus mecA Resistance Marker 08/06/19 19:49 Blood Culture (Wb) - Venous Blood Culture - Preliminary 08/06/19 22:50 Mucosa - Nose Influenza Types A,B Direct FA (THAIS) - Final 08/06/19 20:48 Urine Catheter - Catheter Legionella Antigen - Final 08/06/19 20:48 Urine Catheter - Catheter Streptococcus pneumoniae Antigen (M - Final Laboratory Results 08/06/19 20:48: Urine Color Yellow, Urine Clarity Turbid, Urine pH 6.0, Ur Specific [place] 1.015, Urine Protein 500 H, Urine Glucose (UA) 50 H, Urine Ketones Negative, Urine Occult Blood 250 H, Urine Nitrite Negative, Urine Bilirubin Negative, Urine Urobilinogen Normal, Ur Leukocyte Esterase 500 H, Urine RBC 0 SEEN, Urine WBC >100 SEEN, Ur Squamous Epith Cells 0 SEEN, Urine Bacteria 0 SEEN, Urine Mucus 0 SEEN 08/07/19 05:30: WBC 11.6 H, RBC 3.07 L, Hgb 9.5 L, Hct 33.0 L, MCV 107.5 H, MCH 30.9, MCHC 28.8 L, RDW Std Deviation 65.5 H, RDW Coeff of Liza 16.4 H, Plt Count 217, MPV 9.9, Immature Gran % (Auto) 0.300, Neut % (Auto) 84.3 H, Lymph % (Auto) 8.7 L, [place] % (Auto) 6.1, Eos % (Auto) 0.2, Baso % (Auto) 0.4, Absolute Neuts (auto) 9.8 H, Absolute Lymphs (auto) 1.01, Nucleated RBC % 0, Differential Comment SCANNED, Hypochromasia 2+, Microcytosis 1+, Macrocytosis 3+, Schist ocytes RARE 08/07/19 05:30: Sodium 140, Potassium 4.8, Chloride 108 H, Carbon Dioxide 24.0, Anion Gap 8, BUN 39 H, Creatinine 3.23 H, Estim Creat Clear Calc 13.00, Est GFR (MDRD) Af Amer 18 L, Est GFR (MDRD) Non-Af 15 L, BUN/Creatinine Ratio 12.1, Gl ucose 83, Calcium 7.9 L, Total Bilirubin 0.40, AST 14 L, ALT 7 L, Alkaline Phosphatase 68, Total Protein 5.0 L, Albumin 1.8 L, Globulin 3.2, Albumin/Globulin Ratio 0.6 L, TSH 1.14 08/07/19 05:30: Vitamin D 25-Hydroxy 6.8 L 08/07/19 05:30: Hemoglobin A1c 4.3 08/07/19 11:39: POC Glucose 90 Current Medications Acetaminophen (Tylenol) 650 mg PO Q6H PRN PRN PRN Reason: Pain Score 1-10/Temp > 100.7 F Last Admin: 08/07/19 09:38 Dose: 650 mg Documented by: Albuterol Sulfate (Ventolin Aerosols) 2.5 mg INHALATION Q2H PRN PRN PRN Reason: SHORTNESS OF BREATH Albuterol/Ipratropium (Duoneb) 3 ml INHALATION Q4H.RT [facility] Last Admin: 08/07/19 11:14 Dose: 3 ml Documented by: Amlodipine Besylate (Norvasc) 5 mg PO BID [facility] Last Admin: 08/07/19 09:32 Dose: 5 mg Documented by: Atorvastatin Calcium (Lipitor) 40 mg PO QHS [facility] Last Admin: 08/06/19 22:01 Dose: 40 mg Documented by: Calcitriol (Rocaltrol) 0.25 mcg PO DAILY [facility] Last Admin: 08/07/19 09:31 Dose: 0.25 mcg Documented by: Cetirizine HCl (Zyrtec) 10 mg PO QHS [facility] Citalopram Hydrobromide (Celexa) 40 mg PO DAILY [facility] Last Admin: 08/07/19 09:31 Dose: 40 mg Documented by: Clonidine 0.1 mg/ Clonidine 0. (2 mg) 0.3 mg PO Q6H PRN PRN PRN Reason: SBP > 180 Last Admin: 08/06/19 22:02 Dose: 0.3 mg Documented by: Clopidogrel Bisulfate (Plavix) 75 mg PO DAILY [facility] Last Admin: 08/07/19 09:32 Dose: 75 mg Documented by: Glucagon () 1 mg IM .X1 PRN PRN Reason: Hypoglycemia Guaifenesin/Codeine Phosphate (Robitussin Ac) 5 ml PO Q6H PRN PRN PRN Reason: coughing fits Heparin Sodium (Porcine) (Heparin Na) 5,000 unit SC Q12 [facility] Last Admin: 08/07/19 09:32 Dose: 5,000 unit Documented by: Piperacillin Sod/Tazobactam (Sod 3.375 gm/ Sodium Chloride) 50 mls @ 12.5 mls/hr IV Q8 [facility] Stop: 08/13/19 22:01 Last Admin: 08/07/19 13:18 Dose: 12.5 mls/hr Documented by: Dextrose (Dextrose 10%-Water) 250 mls @ 999 mls/hr IV .Q16M PRN; Protocol PRN Reason: HYPOGLYCEMIA Vancomycin IV Pharmacy to Dose (1 ea/ Sodium Chloride) 500 mls @ 250 mls/hr IV X1 PRN; Protocol PRN Reason: Rx to Dose Vancomycin HCl 1,500 mg/ (Sodium Chloride) 530 mls @ 250 mls/hr IV X1 ONE Stop: 08/07/19 19:07 Insulin Human Lispro (Humalog Kwikpen (Bkc)) 0 unit SC TIDAC [facility]; Protocol Last Admin: 08/07/19 11:43 Dose: Not Given Documented by: Meloxicam (Mobic) 15 mg PO QHS [facility] Last Admin: 08/06/19 22:02 Dose: 15 mg Documented by: Nystatin (Mycostatin Powder) 1 applic TOPICAL BID [facility]; Protocol Last Admin: 08/07/19 09:18 Dose: 1 applicatio Documented by: Ondansetron HCl (Zofran) 4 mg IV Q8H PRN PRN PRN Reason: NAUSEA/VOMITING Pantoprazole Sodium (Protonix) 40 mg PO QHS [facility] Last Admin: 08/06/19 22:02 Dose: 40 mg Documented by: Sodium Chloride () 10 - 40 ml IV UD PRN PRN Reason: SALINE FLUSH Zolpidem Tartrate (Ambien (Generic)) 5 mg PO QHS [facility] Last Admin: 08/06/19 22:02 Dose: 5 mg Documented by: Assessment/Plan All Active Problems (Last Updated 08/06/19 @ 19:15 by Moe Wise DO) DM type 2 causing ESRD (Acute) ESRD (end stage renal disease) on dialysis (Acute) Sepsis (Acute) 1. ESRD HD today then back to [facility] schedule. Consult Dr. Bobo for dialysis catheter removal after dialysis. Will need to hold on AVF placement due to bacteremia 2. DM2 a1c 4.8 3. HTN continue home meds 4. fever, leukocytosis with staph aureus bacteremia from blood cx 08/06. check blood cx on dialysis today. Received iv vanco today. Check random level in am before redosing. ID consulted. Likely need dialysis catheter removed 5. Anemia iv iron weekly on dialysis, hgb 9.5g. GWENDOLYN on dialysis 6. Debilitation inambulatory since May 2019. No hx stroke. 7. Chronic leg pain on narcotics.
[2019-08-07 16:16] LABS: Bedside Glucose 90 mg/dL (70-110)
--- NOTE | 2019-08-07 17:14 | CON.PCM_ITS ---
Problem List (1) Problem with dialysis access Status: Acute Qualifiers: Encounter type: initial encounter Qualified Code(s): T82.898A - Other specified complication of vascular prosthetic devices, implants and grafts, initial encounter Reason for Consult Date of Consultation: 08/07/19 History of Present Illness: The patient is a 68 year old F who I been asked to see tonight for removal of infected tunneled dialysis catheter. Dr. Barb Schwartz is requested a consultation and a written copy of my consult recommendations will be present in the chart. Initially was plan to dialyze the patient tomorrow morning and remove her tunneled dialysis catheter tomorrow. On my arrival over the patient had persistent shaking Reiger's and chills with obvious erythema and fluctuance overlying her catheters. She was hospitalized at the [facility] yesterday August 06, 2019. She was felt to have 3 days of coughing nausea vomiting Reiger's. She had consolidation in the left thorax not known whether that was chronic. Her laboratory this morning demonstrated a white count 11.6 with a hemoglobin 9.5 hematocrit 33 platelet count 217,000 with 84% neutrophils. Blood cultures were drawn and demonstrate MEC a resistant staph aureus. The patient has had a maximum temperature today of 100.1. The patient was originally scheduled as an outpatient to see me in the office to discuss AV fistula creation. She was transferred from [facility] because of her acute illness. By report apparently she has been nonambulatory for 4 months. Past Medical History Medical History: Medical History (Last Updated 08/06/19 @ 19:15 by Moe Wise DO) Diet-controlled diabetes mellitus E11.9 ESRD (end stage renal disease) N18.6 HTN (hypertension) I10 Allergies loratadine Allergy (Verified 08/06/19 20:11) Unknown tape Allergy (Uncoded 08/06/19 20:11) Rash Home Medications: Ambulatory Orders Medication Instructions Recorded Ambien 10 mg QHS 08/06/19 Amlodipine Besylate 5 mg BID 08/06/19 Atorvastatin Calcium 40 mg DAILY 08/06/19 Calcitriol 0.25 mg DAILY 08/06/19 Cetirizine HCl 10 mg QHS 08/06/19 Citalopram [Celexa] 40 mg PO DAILY 08/06/19 Clopidogrel Bisulfate [Clopidogrel] 75 mg DAILY 08/06/19 Meloxicam 15 mg QHS 08/06/19 Omeprazole 40 mg QHS 08/06/19 Tylenol 650 mg TID PRN PRN 08/06/19 Surgical History: - - TDC placement Lives: With Family Smoking Status: Former smoker Tobacco Use: Non-smoker Alcohol: None Drugs: None - *Family History Maternal History Items: - - No known kidney disease Review of Systems Constitutional: Reports: Anorexia, Chills, Fever, Night Sweats, Fatigue Respiratory: Reports: Cough Gastrointestinal: Denies: Abdominal Pain Patient Problems: Active and Suspected Problems (Last Updated 08/06/19 @ 19:15 by Moe Wise DO) Problem with dialysis access (Acute) Sepsis (Acute) - Physical Exam Vitals/I&O's: Vital Signs Temp Pulse Resp BP Pulse Ox 100.0 F H 65 22 H 153/96 H 100 08/07/19 14:50 08/07/19 15:27 08/07/19 15:27 08/07/19 14:50 08/07/19 14:50 Oxygen Flow Rate (L/min) 2 Oxygen Delivery Method Nasal Cannula Weight: 220 lb 7.396 oz Body Mass Index (BMI) 40.3 Intake and Output for Last 24 Hours 08/05/19 08/06/19 08/07/19 23:59 23:59 23:59 Intake Total 500 / 500 Balance 500 / 500 General: Alert, - - Continue with shaking chills and rigors. Patient difficult to speak because of the shakes Lungs: - - Right internal jugular tunneled dialysis catheter with erythema fluctuance and exquisite tenderness to light palpation Cardiovascular: Tachycardic, - Microbiology Past 72 Hours 08/06/19 19:59 Blood Culture (Wb) - Venous Blood Culture - Preliminary 08/06/19 19:49 Blood Culture (Wb) - Venous Bacteria Detection (PCR) - Final Staphylococcus aureus mecA Resistance Marker 08/06/19 19:49 Blood Culture (Wb) - Venous Blood Culture - Preliminary 08/06/19 22:50 Mucosa - Nose Influenza Types A,B Direct FA (THAIS) - Final 08/06/19 20:48 Urine Catheter - Catheter Legionella Antigen - Final 08/06/19 20:48 Urine Catheter - Catheter Streptococcus pneumoniae Antigen (M - Final Laboratory Results 08/06/19 20:48: Urine Color Yellow, Urine Clarity Turbid, Urine pH 6.0, Ur Specific [place] 1.015, Urine Protein 500 H, Urine Glucose (UA) 50 H, Urine Ketones Negative, Urine Occult Blood 250 H, Urine Nitrite Negative, Urine Bilirubin Negative, Urine Urobilinogen Normal, Ur Leukocyte Esterase 500 H, Urine RBC 0 SEEN, Urine WBC >100 SEEN, Ur Squamous Epith Cells 0 SEEN, Urine Bacteria 0 SEEN, Urine Mucus 0 SEEN 08/07/19 05:30: WBC 11.6 H, RBC 3.07 L, Hgb 9.5 L, Hct 33.0 L, MCV 107.5 H, MCH 30.9, MCHC 28.8 L, RDW Std Deviation 65.5 H, RDW Coeff of Liza 16.4 H, Plt Count 217, MPV 9.9, Immature Gran % (Auto) 0.300, Neut % (Auto) 84.3 H, Lymph % (Auto) 8.7 L, [place] % (Auto) 6.1, Eos % (Auto) 0.2, Baso % (Auto) 0.4, Absolute Neuts (auto) 9.8 H, Absolute Lymphs (auto) 1.01, Nucleated RBC % 0, Differential Comment SCANNED, Hypochromasia 2+, Microcytosis 1+, Macrocytosis 3+, Schistocytes RARE 08/07/19 05:30: Sodium 140, Potassium 4.8, Chloride 108 H, Carbon Dioxide 24.0, Anion Gap 8, BUN 39 H, Creatinine 3.23 H, Estim Creat Clear Calc 13.00, Est GFR (MDRD) Af Amer 18 L, Est GFR (MDRD) Non-Af 15 L, BUN/Creatinine Ratio 12.1, Glucose 83, Calcium 7.9 L, Total Bilirubin 0.40, AST 14 L, ALT 7 L, Alkaline Phosphatase 68, Total Protein 5.0 L, Albumin 1.8 L, Globulin 3.2, Albumin/Globulin Ratio 0.6 L, TSH 1.14 08/07/19 05:30: Vitamin D 25-Hydroxy 6.8 L 08/07/19 05:30: Hemoglobin A1c 4.3 08/07/19 06:36: POC Glucose 90 08/07/19 11:39: POC Glucose 90 Current Medications Acetaminophen (Tylenol) 650 mg PO Q6H PRN PRN PRN Reason: Pain Score 1-10/Temp > 100.7 F Last Admin: 08/07/19 09:38 Dose: 650 mg Documented by: Albuterol Sulfate (Ventolin Aerosols) 2.5 mg INHALATION Q2H PRN PRN PRN Reason: SHORTNESS OF BREATH Albuterol/Ipratropium (Duoneb) 3 ml INHALATION Q4H.RT [facility] Last Admin: 08/07/19 15:27 Dose: 3 ml Documented by: Amlodipine Besylate (Norvasc) 5 mg PO BID [facility] Last Admin: 08/07/19 09:32 Dose: 5 mg Documented by: Atorvastatin Calcium (Lipitor) 40 mg PO QHS [facility] Last Admin: 08/06/19 22:01 Dose: 40 mg Documented by: Calcitriol (Rocaltrol) 0.25 mcg PO DAILY [facility] Last Admin: 08/07/19 09:31 Dose: 0.25 mcg Documented by: Cetirizine HCl (Zyrtec) 10 mg PO QHS [facility] Citalopram Hydrobromide (Celexa) 40 mg PO DAILY [facility] Last Admin: 08/07/19 09:31 Dose: 40 mg Documented by: Clonidine 0.1 mg/ Clonidine 0. (2 mg) 0.3 mg PO Q6H PRN PRN PRN Reason: SBP > 180 Last Admin: 08/06/19 22:02 Dose: 0.3 mg Documented by: Clopidogrel Bisulfate (Plavix) 75 mg PO DAILY [facility] Last Admin: 08/07/19 09:32 Dose: 75 mg Documented by: Glucagon () 1 mg IM .X1 PRN PRN Reason: Hypoglycemia Guaifenesin/Codeine Phosphate (Robitussin Ac) 5 ml PO Q6H PRN PRN PRN Reason: coughing fits Heparin Sodium (Porcine) (Heparin Na) 5,000 unit SC Q12 [facility] Last Admin: 08/07/19 09:32 Dose: 5,000 unit Documented by: Piperacillin Sod/Tazobactam (Sod 3.375 gm/ Sodium Chloride) 50 mls @ 12.5 mls/hr IV Q8 [facility] Stop: 08/13/19 22:01 Last Admin: 08/07/19 13:18 Dose: 12.5 mls/hr Documented by: Dextrose (Dextrose 10%-Water) 250 mls @ 999 mls/hr IV .Q16M PRN; Protocol PRN Reason: HYPOGLYCEMIA Vancomycin IV Pharmacy to Dose (1 ea/ Sodium Chloride) 500 mls @ 250 mls/hr IV X1 PRN; Protocol PRN Reason: Rx to Dose Vancomycin HCl 1,500 mg/ (Sodium Chloride) 530 mls @ 250 mls/hr IV X1 ONE Stop: 08/07/19 19:07 Insulin Human Lispro (Humalog Kwikpen (Bkc)) 0 unit SC TIDAC [facility]; Protocol Last Admin: 08/07/19 11:43 Dose: Not Given Documented by: Meloxicam (Mobic) 15 mg PO QHS [facility] Last Admin: 08/06/19 22:02 Dose: 15 mg Documented by: Nystatin (Mycostatin Powder) 1 applic TOPICAL BID [facility]; Protocol Last Admin: 08/07/19 09:18 Dose: 1 applicatio Documented by: Ondansetron HCl (Zofran) 4 mg IV Q8H PRN PRN PRN Reason: NAUSEA/VOMITING Pantoprazole Sodium (Protonix) 40 mg PO QHS [facility] Last Admin: 08/06/19 22:02 Dose: 40 mg Documented by: Sodium Chloride () 10 - 40 ml IV UD PRN PRN Reason: SALINE FLUSH Zolpidem Tartrate (Ambien (Generic)) 5 mg PO QHS [facility] Last Admin: 08/06/19 22:02 Dose: 5 mg Documented by: Assessment/Plan All Active Problems (Last Updated 08/06/19 @ 19:15 by Moe Wise DO) Problem with dialysis access (Acute) DM type 2 causing ESRD (Acute) ESRD (end stage renal disease) on dialysis (Acute) Sepsis (Acute) 68-year-old female who appears to have sepsis related to grossly infected tunneled dialysis catheters right anterior chest with local cellulitis fluctuance abscess. I do not believe that she will tolerate these catheters remaining into the 4 dialysis tomorrow patient appears to be acutely ill and emergent removal of the catheters is indicated. I have discussed this with the patient and we proceeded at the bedside expeditiously Procedure note Timeout and informed consent was obtained. The right neck chest was prepped with chlorhexidine. 1% lidocaine was used as a local anesthetic a total of 20 cc was used. A counterincision was made over where I thought the cuff was but this was a gross pock pocket of pus which emanated there from. The catheter then was removed from the internal jugular with direct pressure held. I then dissected the cuff free and the catheter was removed. Because there was gross pus at the counterincision site I could not close that area. Copious gauze dressings were applied followed by skin prep to protect the skin and tape dressing. The patient was kept now head of bed elevated to limit risk of bleeding. Because blood cultures already demonstrated positivity I did not send the catheters for culture as well. She tolerated the procedure amazingly well but was still having rigors at the completion. Recommend ongoing intensive medical and infectious disease care. Tentatively plan for replacement of new tunneled dialysis catheter is on August Chun Bobo M.D., F.A.C.S.
[2019-08-07 17:40] LABS: Bedside Glucose 81 mg/dL (70-110)
--- NOTE | 2019-08-07 18:11 | NURSING ---
per patient request, updated her daughter-Michelle in regards to catheter removal and plan for replacement catheter for with Dr Bobo.
[2019-08-07] MEDS: Zolpidem Tartrate 5 MG Tablet PO (22:17)
[2019-08-07] MEDS: Meloxicam 15 MG Tablet PO (22:18)
[2019-08-07] MEDS: Pantoprazole Sodium 40 MG Tablet PO (22:18)
[2019-08-07] MEDS: Atorvastatin Calcium 40 MG Tablet PO (22:18)
[2019-08-07] MEDS: CETIRIZINE HCL 10 MG TABLET PO (22:19)
[2019-08-07 23:11] LABS: Bedside Glucose 108 mg/dL (70-110)
[2019-08-08] VITALS (11 sets, daily range): BP systolic 112–138; BP diastolic 48–70; PULSE 76–111; RESP 16–20; TEMP 36.6–36.8; O2SAT 93–97
--- NOTE | 2019-08-08 06:02 | PN.SURG_ITS ---
Patient Problems: Active and Suspected Problems (Last Updated 08/06/19 @ 19:15 by Moe Wise DO) Problem with dialysis access (Acute) Sepsis (Acute) Subjective: Pt resting comfortably, rigors has ceased, brief tachycardia last night and fever spike also improved - Physical Exam Vitals/I&O's: Vital Signs Temp Pulse Resp BP Pulse Ox 97.8 F 98 18 138/65 H 95 08/08/19 03:30 08/08/19 03:30 08/08/19 03:30 08/08/19 03:30 08/08/19 03:30 Oxygen Flow Rate (L/min) 2 Oxygen Delivery Method Room Air Weight: 220 lb 7.396 oz Body Mass Index (BMI) 40.3 Intake and Output for Last 24 Hours 08/06/19 08/07/19 08/08/19 23:59 23:59 23:59 Intake Total 1380 / 1380 50 / 50 Balance 1380 / 1380 50 / 50 Microbiology Past 72 Hours 08/06/19 19:59 Blood Culture (Wb) - Venous Blood Culture - Preliminary 08/06/19 19:49 Blood Culture (Wb) - Venous Bacteria Detection (PCR) - Final Staphylococcus aureus mecA Resistance Marker 08/06/19 19:49 Blood Culture (Wb) - Venous Blood Culture - Preliminary 08/06/19 22:50 Mucosa - Nose Influenza Types A,B Direct FA (THAIS) - Final 08/06/19 20:48 Urine Catheter - Catheter Legionella Antigen - Final 08/06/19 20:48 Urine Catheter - Catheter Streptococcus pneumoniae Antigen (M - Final Laboratory Results 08/07/19 05:30: WBC 11.6 H, RBC 3.07 L, Hgb 9.5 L, Hct 33.0 L, MCV 107.5 H, MCH 30.9, MCHC 28.8 L, RDW Std Deviation 65.5 H, RDW Coeff of Liza 16.4 H, Plt Count 217, MPV 9.9, Immature Gran % (Auto) 0.300, Neut % (Auto) 84.3 H, Lymph % (Auto) 8.7 L, [place] % (Auto) 6.1, Eos % (Auto) 0.2, Baso % (Auto) 0.4, Absolute Neuts (auto) 9.8 H, Absolute Lymphs (auto) 1.01, Nucleated RBC % 0, Differential Comment SCANNED, Hypochromasia 2+, Microcytosis 1+, Macrocytosis 3+, Schistocytes RARE 08/07/19 05:30: Sodium 140, Potassium 4.8, Chloride 108 H, Carbon Dioxide 24.0, Anion Gap 8, BUN 39 H, Creatinine 3.23 H, Estim Creat Clear Calc 13.00, Est GFR (MDRD) Af Amer 18 L, Est GFR (MDRD) Non-Af 15 L, BUN/Creatinine Ratio 12.1, Glucose 83, Calcium 7.9 L, Total Bilirubin 0.40, AST 14 L, ALT 7 L, Alkaline Phosphatase 68, Total Protein 5.0 L, Albumin 1.8 L, Globulin 3.2, Albumin/Globulin Ratio 0.6 L, TSH 1.14 08/07/19 05:30: Vitamin D 25-Hydroxy 6.8 L 08/07/19 05:30: Hemoglobin A1c 4.3 08/07/19 06:36: POC Glucose 90 08/07/19 11:39: POC Glucose 90 08/07/19 17:33: POC Glucose 81 08/07/19 22:16: POC Glucose 108 08/08/19 05:08: WBC Pending, RBC Pending, Hgb Pending, Hct Pending, MCV Pending, MCH Pending, MCHC Pending, RDW Std Deviation Pending, RDW Coeff of Liza Pending, Plt Count Pending 08/08/19 05:08: Sodium Pending, Potassium Pending, Chloride Pending, Carbon Dioxide Pending, Anion Gap Pending, BUN Pending, Creatinine Pending, Est GFR (MDRD) Af Amer Pending, Est GFR (MDRD) Non-Af Pending, BUN/Creatinine Ratio Pending, Glucose Pending, Calcium Pending 08/08/19 05:08: Random Vancomycin Pending Current Medications Acetaminophen (Tylenol) 650 mg PO Q6H PRN PRN PRN Reason: Pain Score 1-10/Temp > 100.7 F Last Admin: 08/07/19 22:18 Dose: 650 mg Documented by: Albuterol Sulfate (Ventolin Aerosols) 2.5 mg INHALATION Q2H PRN PRN PRN Reason: SHORTNESS OF BREATH Albuterol/Ipratropium (Duoneb) 3 ml INHALATION Q4H.RT MARTHA Last Admin: 08/08/19 03:20 Dose: Not Given Documented by: Amlodipine Besylate (Norvasc) 5 mg PO BID [facility] Last Admin: 08/07/19 22:18 Dose: 5 mg Documented by: Atorvastatin Calcium (Lipitor) 40 mg PO QHS [facility] Last Admin: 08/07/19 22:18 Dose: 40 mg Documented by: Calcitriol (Rocaltrol) 0.25 mcg PO DAILY [facility] Last Admin: 08/07/19 09:31 Dose: 0.25 mcg Documented by: Cetirizine HCl (Zyrtec) 10 mg PO QHS [facility] Last Admin: 08/07/19 22:19 Dose: 10 mg Documented by: Citalopram Hydrobromide (Celexa) 40 mg PO DAILY [facility] Last Admin: 08/07/19 09:31 Dose: 40 mg Documented by: Clonidine 0.1 mg/ Clonidine 0. (2 mg) 0.3 mg PO Q6H PRN PRN PRN Reason: SBP > 180 Last Admin: 08/06/19 22:02 Dose: 0.3 mg Documented by: Clopidogrel Bisulfate (Plavix) 75 mg PO DAILY [facility] Last Admin: 08/07/19 09:32 Dose: 75 mg Documented by: Glucagon () 1 mg IM .X1 PRN PRN Reason: Hypoglycemia Guaifenesin/Codeine Phosphate (Robitussin Ac) 5 ml PO Q6H PRN PRN PRN Reason: coughing fits Heparin Sodium (Porcine) (Heparin Na) 5,000 unit SC Q12 [facility] Last Admin: 08/07/19 22:18 Dose: 5,000 unit Documented by: Piperacillin Sod/Tazobactam (Sod 3.375 gm/ Sodium Chloride) 50 mls @ 12.5 mls/hr IV Q8 [facility] Stop: 08/13/19 22:01 Last Infusion: 08/08/19 02:18 Dose: Infused Documented by: Dextrose (Dextrose 10%-Water) 250 mls @ 999 mls/hr IV .Q16M PRN; Protocol PRN Reason: HYPOGLYCEMIA Vancomycin IV Pharmacy to Dose (1 ea/ Sodium Chloride) 500 mls @ 250 mls/hr IV X1 PRN; Protocol PRN Reason: Rx to Dose Cefazolin Sodium 2 gm/ Sodium (Chloride) 110 mls @ 150 mls/hr IV X1 ONE Stop: 08/09/19 15:05 Insulin Human Lispro (Humalog Kwikpen (Bkc)) 0 unit SC TIDAC [facility]; Protocol Last Admin: 08/07/19 17:34 Dose: Not Given Documented by: Meloxicam (Mobic) 15 mg PO QHS [facility] Last Admin: 08/07/19 22:18 Dose: 15 mg Documented by: Nystatin (Mycostatin Powder) 1 applic TOPICAL BID [facility]; Protocol Last Admin: 08/07/19 22:18 Dose: 1 applicatio Documented by: Ondansetron HCl (Zofran) 4 mg IV Q8H PRN PRN PRN Reason: NAUSEA/VOMITING Pantoprazole Sodium (Protonix) 40 mg PO QHS [facility] Last Admin: 08/07/19 22:18 Dose: 40 mg Documented by: Sodium Chloride () 10 - 40 ml IV UD PRN PRN Reason: SALINE FLUSH Zolpidem Tartrate (Ambien (Generic)) 5 mg PO QHS [facility] Last Admin: 08/07/19 22:17 Dose: 5 mg Documented by: Medical Necessity - Tobacco Use Smoking Status: Former smoker Tobacco Use: Non-smoker Assessment/Plan All Active Problems (Last Updated 08/06/19 @ 19:15 by Moe Wise DO) Problem with dialysis access (Acute) DM type 2 causing ESRD (Acute) ESRD (end stage renal disease) on dialysis (Acute) Sepsis (Acute) BUN, Creat, K reviewed from 08/07 Planned tunneled cath left IJ 08/09/2019 Significant pus was released with removal of right IJ catheter and counter incision was left open for drainage Pt noted to be more coherent last night
[2019-08-08 06:11] LABS: Hematocrit 26.2 % (37-47); Hemoglobin 8.2 g/dL (12.0-15.0); Mean Corp Hgb Conc 31.3 g/dL (32-36); Mean Corpuscular Hgb 32.5 pg (27.0-32.0); Mean Platelet Vol. 10.6 fl (6.2-12.0); Platelet Count 126 K/mm3 (150-450); RBC Distribution Width CV 15.9 % (11.6-14.6); RBC Distribution Width SD 59.9 fl (35.1-43.9); Red Blood Count 2.52 M/mm3 (4.2-5.4); White Blood Count 7.4 K/mm3 (4.4-11.0)
[2019-08-08 06:36] LABS: Anion Gap 9 (5-15); BUN 45 mg/dL (7-18); BUN/Creat Ratio 13.4 RATIO (10-20); Chloride 108 mmol/L (98-107); Creatinine, Serum 3.37 mg/dL (0.55-1.02); EST Glomerular Filtration Rate 14 mL/min (>60); Est Glom Filt Rate - Afr Amer 17 mL/min (>60); Estimated Creatinine Clearance 12.46 ml/min; Glucose 92 mg/dL (74-106); Potassium 4.3 mmol/L (3.5-5.1); Sodium Level 139 mmol/L (136-145)
[2019-08-08 06:40] LABS: Vancomycin, Random Level 10.4 ug/mL (0.0-15.0)
[2019-08-08 06:56] LABS: Bedside Glucose 68 mg/dL (70-110)
[2019-08-08] MEDS: Ipratropium/Albuterol Sulfate 3 ML AMPUL.NEB INHALATION ×5 (07:10→23:26)
--- NOTE | 2019-08-08 08:08 | NURSING ---
Blood glucose now is 82.
[2019-08-08] MEDS: Nystatin Powder 15gm Bottle 1 APPLIC TOPICAL ×2 (09:57→21:14)
[2019-08-08] MEDS: Clopidogrel Bisulfate 75 MG Tablet PO (09:58)
[2019-08-08] MEDS: Heparin Injection (Vial) 5,000 UNIT/ML VIAL 5000 UNIT SC ×2 (09:58→21:13)
[2019-08-08] MEDS: Citalopram 40 MG TABLET PO (09:58)
[2019-08-08] MEDS: amLODIPine 5 MG Tablet PO ×2 (09:58→21:14)
[2019-08-08] MEDS: Calcitriol 0.25 MCG Capsule PO (10:01)
[2019-08-08] MEDS: Acetaminophen 325 MG Tablet 650 MG PO ×2 (10:41→19:20)
[2019-08-08 10:46] LABS: Bedside Glucose 82 mg/dL (70-110)
[2019-08-08 10:46] LABS: Bedside Glucose 62 mg/dL (70-110)
--- NOTE | 2019-08-08 13:22 | PN_ITS ---
<Stephanie Weems - Last Filed: 08/08/19 13:32> Patient Problems: Active and Suspected Problems (Last Updated 08/06/19 @ 19:15 by Moe Wise DO) Problem with dialysis access (Acute) Sepsis (Acute) Subjective: Patient seen and examined. Shaking/chills improved. Patient reports she feels overall improved from yesterday. - Physical Exam Vitals/I&O's: Vital Signs Temp Pulse Resp BP Pulse Ox 98.3 F 84 20 H 114/70 95 08/08/19 08:21 08/08/19 11:04 08/08/19 11:04 08/08/19 08:21 08/08/19 08:21 Oxygen Flow Rate (L/min) 2 Oxygen Delivery Method Room Air Weight: 220 lb 7.396 oz Body Mass Index (BMI) 40.3 Intake and Output for Last 24 Hours 08/06/19 08/07/19 08/08/19 23:59 23:59 23:59 Intake Total 1380 / 1380 100 / 100 Balance 1380 / 1380 100 / 100 General: Alert, Oriented x3, Cooperative HEENT: Atraumatic, PERRLA, EOMI, Normocephalic Neck: Supple, No JVD, Negative Carotid Bruits Lungs: Diminished, - - Faint crackles bilateral bases Cardiovascular: Regular rate, Regular Rhythm, Normal S1, Normal S2, No murmurs Abdomen: Bowel Sounds Present, Soft, Non Tender, Non-Distended, Obese Extremities: No clubbing, No cyanosis, No edema, Capillary Refill Less than 3 Seconds Skin: No rashes, No breakdown Musculoskeletal: No Tenderness to Palpation of Joints or Extremities Neurological: Cranial nerves II-XII grossly intact, Neuro grossly intact Psych/Mental Status: Normal Affect, Appropriate Microbiology Past 72 Hours 08/08/19 09:35 Stool C. difficile DNA Amplification - Final 08/07/19 09:20 Sputum, Expectorated/Coughed Respiratory Culture - Preliminary Appears to be normal respiratory ning. Further studies to follow. 08/06/19 20:48 Urine, Catheterized Urine Culture - Final Presumptive C albicans 08/06/19 19:59 Blood Culture (Wb) - Venous Blood Culture - Preliminary Staphylococcus aureus 08/06/19 19:49 Blood Culture (Wb) - Venous Bacteria Detection (PCR) - Final Staphylococcus aureus mecA Resistance Marker 08/06/19 19:49 Blood Culture (Wb) - Venous Blood Culture - Preliminary Staphylococcus aureus 08/06/19 22:50 Mucosa - Nose Influenza Types A,B Direct FA (THAIS) - Final 08/06/19 20:48 Urine Catheter - Catheter Legionella Antigen - Final 08/06/19 20:48 Urine Catheter - Catheter Streptococcus pneumoniae Antigen (M - Final Laboratory Results 08/07/19 06:36: POC Glucose 90 08/07/19 17:33: POC Glucose 81 08/07/19 22:16: POC Glucose 108 08/08/19 05:08: WBC 7.4, RBC 2.52 L, Hgb 8.2 L, Hct 26.2 L, MCV 104.0 H, MCH 32.5 H, MCHC 31.3 L, RDW Std Deviation 59.9 H, RDW Coeff of Liza 15.9 H, Plt Count 126 L, MPV 10.6 08/08/19 05:08: Sodium 139, Potassium 4.3, Chloride 108 H, Carbon Dioxide 22.0, Anion Gap 9, BUN 45 H, Creatinine 3.37 H, Estim Creat Clear Calc 12.46, Est GFR (MDRD) Af Amer 17 L, Est GFR (MDRD) Non-Af 14 L, BUN/Creatinine Ratio 13.4, Glucose 92, Calcium 8.0 L 08/08/19 05:08: Random Vancomycin 10.4 08/08/19 06:47: POC Glucose 68 L 08/08/19 07:21: POC Glucose 62 L 08/08/19 08:06: POC Glucose 82 Current Medications Acetaminophen (Tylenol) 650 mg PO Q6H PRN PRN PRN Reason: Pain Score 1-10/Temp > 100.7 F Last Admin: 08/08/19 10:41 Dose: 650 mg Documented by: Albuterol Sulfate (Ventolin Aerosols) 2.5 mg INHALATION Q2H PRN PRN PRN Reason: SHORTNESS OF BREATH Albuterol/Ipratropium (Duoneb) 3 ml INHALATION Q4H.RT [facility] Last Admin: 08/08/19 11:04 Dose: 3 ml Documented by: Amlodipine Besylate (Norvasc) 5 mg PO BID [facility] Last Admin: 08/08/19 09:58 Dose: 5 mg Documented by: Atorvastatin Calcium (Lipitor) 40 mg PO QHS [facility] Last Admin: 08/07/19 22:18 Dose: 40 mg Documented by: Calcitriol (Rocaltrol) 0.25 mcg PO DAILY [facility] Last Admin: 08/08/19 10:01 Dose: 0.25 mcg Documented by: Cetirizine HCl (Zyrtec) 10 mg PO QHS [facility] Last Admin: 08/07/19 22:19 Dose: 10 mg Documented by: Citalopram Hydrobromide (Celexa) 40 mg PO DAILY [facility] Last Admin: 08/08/19 09:58 Dose: 40 mg Documented by: Clonidine 0.1 mg/ Clonidine 0. (2 mg) 0.3 mg PO Q6H PRN PRN PRN Reason: SBP > 180 Last Admin: 08/06/19 22:02 Dose: 0.3 mg Documented by: Clopidogrel Bisulfate (Plavix) 75 mg PO DAILY [facility] Last Admin: 08/08/19 09:58 Dose: 75 mg Documented by: Glucagon () 1 mg IM .X1 PRN PRN Reason: Hypoglycemia Guaifenesin/Codeine Phosphate (Robitussin Ac) 5 ml PO Q6H PRN PRN PRN Reason: coughing fits Heparin Sodium (Porcine) (Heparin Na) 5,000 unit SC Q12 [facility] Last Admin: 08/08/19 09:58 Dose: 5,000 unit Documented by: Piperacillin Sod/Tazobactam (Sod 3.375 gm/ Sodium Chloride) 50 mls @ 12.5 mls/hr IV Q8 [facility] Stop: 08/13/19 22:01 Last Infusion: 08/08/19 10:50 Dose: Infused Documented by: Dextrose (Dextrose 10%-Water) 250 mls @ 999 mls/hr IV .Q16M PRN; Protocol PRN Reason: HYPOGLYCEMIA Vancomycin IV Pharmacy to Dose (1 ea/ Sodium Chloride) 500 mls @ 250 mls/hr IV X1 PRN; Protocol PRN Reason: Rx to Dose Cefazolin Sodium 2 gm/ Sodium (Chloride) 110 mls @ 150 mls/hr IV X1 ONE Stop: 08/09/19 14:28 Insulin Human Lispro (Humalog Kwikpen (Bkc)) 0 unit SC TIDAC [facility]; Protocol Last Admin: 08/08/19 10:46 Dose: Not Given Documented by: Meloxicam (Mobic) 15 mg PO QHS [facility] Last Admin: 08/07/19 22:18 Dose: 15 mg Documented by: Nystatin (Mycostatin Powder) 1 applic TOPICAL BID [facility]; Protocol Last Admin: 08/08/19 09:57 Dose: 1 applicatio Documented by: Ondansetron HCl (Zofran) 4 mg IV Q8H PRN PRN PRN Reason: NAUSEA/VOMITING Pantoprazole Sodium (Protonix) 40 mg PO QHS [facility] Last Admin: 08/07/19 22:18 Dose: 40 mg Documented by: Sodium Chloride () 10 - 40 ml IV UD PRN PRN Reason: SALINE FLUSH Zolpidem Tartrate (Ambien (Generic)) 5 mg PO QHS [facility] Last Admin: 08/07/19 22:17 Dose: 5 mg Documented by: Medical Necessity - Tobacco Use Smoking Status: Former smoker Tobacco Use: Non-smoker Assessment/Plan All Active Problems (Last Updated 08/06/19 @ 19:15 by Moe Wise DO) Problem with dialysis access (Acute) DM type 2 causing ESRD (Acute) ESRD (end stage renal disease) on dialysis (Acute) Sepsis (Acute) 1. Sepsis with MRSA bacteremia, secondary to infected right IJ tunneled catheter-Sputum and urine culture unremarkable. Chest x-ray admission with pleural fluid and/or atelectasis in the left base. Continue IV Zosyn and IV vancomycin. ID consult. Repeat blood cultures today. 2. Possible healthcare acquired pneumonia-RULED OUT. CXR on admission per above. Urine negative for strep and Legionella. Sputum culture showing normal respiratory ning. Do suspect atelectasis on the left base. Bacteremia explains fever and leukocytosis. 3. End-stage renal disease on hemodialysis-nephrology consulted. Patient following with Dr. Bobo for fistula evaluation. Right IJ catheter removed 08/07/[address] Bobo and was reported to have significant purulent drainage. Plan to replace with left IJ , 08/09/2019. Dr. Schwartz following. 4. Hypertension-stable, continue amlodipine regimen. 5. Type 2 diabetes mellitus-diet controlled. 6. Debility- PT/OT. 7. Obesity-encouraged diet lifestyle modifications. 8. Depression-continue Celexa regimen. 9. Hyperlipidemia-continue statin. 10. GERD-continue omeprazole regimen. 11. Anemia of chronic disease-unknown baseline, trend CBC. DVT prophylaxis-heparin subcu This patient was seen by MAYDA Del Cid under the supervision of Dr. Corrigan. <Pollo Corrigan F - Last Filed: 08/08/19 15:06> - Physical Exam Vitals/I&O's: Vital Signs Temp Pulse Resp BP Pulse Ox 97.8 F 98 16 112/48 L 94 08/08/19 14:42 08/08/19 14:42 08/08/19 14:42 08/08/19 14:42 08/08/19 14:42 Oxygen Flow Rate (L/min) 2 Oxygen Delivery Method Room Air Weight: 220 lb 7.396 oz Body Mass Index (BMI) 40.3 Intake and Output for Last 24 Hours 08/06/19 08/07/19 08/08/19 23:59 23:59 23:59 Intake Total 1380 / 1380 100 / 100 Balance 1380 / 1380 100 / 100 Microbiology Past 72 Hours 08/08/19 09:35 Stool Enteric Bacteriology - Final 08/08/19 09:35 Stool C. difficile DNA Amplification - Final 08/07/19 09:20 Sputum, Expectorated/Coughed Respiratory Culture - Preliminary Appears to be normal respiratory ning. Further studies to follow. 08/06/19 20:48 Urine, Catheterized Urine Culture - Final Presumptive C albicans 08/06/19 19:59 Blood Culture (Wb) - Venous Blood Culture - Preliminary Staphylococcus aureus 08/06/19 19:49 Blood Culture (Wb) - Venous Bacteria Detection (PCR) - Final Staphylococcus aureus mecA Resistance Marker 08/06/19 19:49 Blood Culture (Wb) - Venous Blood Culture - Preliminary Staphylococcus aureus 08/06/19 22:50 Mucosa - Nose Influenza Types A,B Direct FA (THAIS) - Final 08/06/19 20:48 Urine Catheter - Catheter Legionella Antigen - Final 08/06/19 20:48 Urine Catheter - Catheter Streptococcus pneumoniae Antigen (M - Final Laboratory Results 08/07/19 06:36: POC Glucose 90 08/07/19 17:33: POC Glucose 81 08/07/19 22:16: POC Glucose 108 08/08/19 05:08: WBC 7.4, RBC 2.52 L, Hgb 8.2 L, Hct 26.2 L, MCV 104.0 H, MCH 32.5 H, MCHC 31.3 L, RDW Std Deviation 59.9 H, RDW Coeff of Liza 15.9 H, Plt Count 126 L, MPV 10.6 08/08/19 05:08: Sodium 139, Potassium 4.3, Chloride 108 H, Carbon Dioxide 22.0, Anion Gap 9, BUN 45 H, Creatinine 3.37 H, Estim Creat Clear Calc 12.46, Est GFR (MDRD) Af Amer 17 L, Est GFR (MDRD) Non-Af 14 L, BUN/Creatinine Ratio 13.4, Glucose 92, Calcium 8.0 L 08/08/19 05:08: Random Vancomycin 10.4 08/08/19 06:47: POC Glucose 68 L 08/08/19 07:21: POC Glucose 62 L 08/08/19 08:06: POC Glucose 82 08/08/19 10:45: POC Glucose 112 H Current Medications Acetaminophen (Tylenol) 650 mg PO Q6H PRN PRN PRN Reason: Pain Score 1-10/Temp > 100.7 F Last Admin: 08/08/19 10:41 Dose: 650 mg Documented by: Albuterol Sulfate (Ventolin Aerosols) 2.5 mg INHALATION Q2H PRN PRN PRN Reason: SHORTNESS OF BREATH Albuterol/Ipratropium (Duoneb) 3 ml INHALATION Q4H.RT [facility] Last Admin: 08/08/19 11:04 Dose: 3 ml Documented by: Amlodipine Besylate (Norvasc) 5 mg PO BID [facility] Last Admin: 08/08/19 09:58 Dose: 5 mg Documented by: Atorvastatin Calcium (Lipitor) 40 mg PO QHS [facility] Last Admin: 08/07/19 22:18 Dose: 40 mg Documented by: Calamine/Phenol (Calmoseptine Ointment) 1 applic TOPICAL TID [facility]; Protocol Calcitriol (Rocaltrol) 0.25 mcg PO DAILY [facility] Last Admin: 08/08/19 10:01 Dose: 0.25 mcg Documented by: Cetirizine HCl (Zyrtec) 10 mg PO QHS [facility] Last Admin: 08/07/19 22:19 Dose: 10 mg Documented by: Citalopram Hydrobromide (Celexa) 40 mg PO DAILY [facility] Last Admin: 08/08/19 09:58 Dose: 40 mg Documented by: Clonidine 0.1 mg/ Clonidine 0. (2 mg) 0.3 mg PO Q6H PRN PRN PRN Reason: SBP > 180 Last Admin: 08/06/19 22:02 Dose: 0.3 mg Documented by: Clopidogrel Bisulfate (Plavix) 75 mg PO DAILY [facility] Last Admin: 08/08/19 09:58 Dose: 75 mg Documented by: Glucagon () 1 mg IM .X1 PRN PRN Reason: Hypoglycemia Guaifenesin/Codeine Phosphate (Robitussin Ac) 5 ml PO Q6H PRN PRN PRN Reason: coughing fits Heparin Sodium (Porcine) (Heparin Na) 5,000 unit SC Q12 [facility] Last Admin: 08/08/19 09:58 Dose: 5,000 unit Documented by: Dextrose (Dextrose 10%-Water) 250 mls @ 999 mls/hr IV .Q16M PRN; Protocol PRN Reason: HYPOGLYCEMIA Vancomycin IV Pharmacy to Dose (1 ea/ Sodium Chloride) 500 mls @ 250 mls/hr IV X1 PRN; Protocol PRN Reason: Rx to Dose Cefazolin Sodium 2 gm/ Sodium (Chloride) 110 mls @ 150 mls/hr IV X1 ONE Stop: 08/09/19 14:28 Vancomycin HCl 750 mg/ Sodium (Chloride) 265 mls @ 250 mls/hr IV X1 ONE Stop: 08/08/19 18:03 Insulin Human Lispro (Humalog Kwikpen (Bkc)) 0 unit SC TIDAC [facility]; Protocol Last Admin: 08/08/19 10:46 Dose: Not Given Documented by: Meloxicam (Mobic) 15 mg PO QHS [facility] Last Admin: 08/07/19 22:18 Dose: 15 mg Documented by: Nystatin (Mycostatin Powder) 1 applic TOPICAL BID [facility]; Protocol Last Admin: 08/08/19 09:57 Dose: 1 applicatio Documented by: Ondansetron HCl (Zofran) 4 mg IV Q8H PRN PRN PRN Reason: NAUSEA/VOMITING Pantoprazole Sodium (Protonix) 40 mg PO QHS [facility] Last Admin: 08/07/19 22:18 Dose: 40 mg Documented by: Sodium Chloride () 10 - 40 ml IV UD PRN PRN Reason: SALINE FLUSH Zolpidem Tartrate (Ambien (Generic)) 5 mg PO QHS [facility] Last Admin: 08/07/19 22:17 Dose: 5 mg Documented by: Code Visit Addendum: Dr. Corrigan I personally examined the patient and reviewed the chart. I agree with the above. 68-year-old female who presented to an outside hospital significant episodes of coughing, leading to vomiting. She also had a chest x-ray which demonstrated a possible consolidation the left thorax which may be chronic. She is also a dialysis patient and had a tunnel catheter which was a little bit red when she presented to the hospital, and it was removed by general surgery after she started growing MRSA in her blood. She was started on vancomycin and she has repeat cultures today to demonstrate clearance prior to having a tunneled catheter replaced. Infectious disease has been consulted to assist with management. She is feeling much better today since the catheter was removed and she is received antibiotics. Inpatient E&M: 80056 Subs Hosp L2
--- NOTE | 2019-08-08 13:38 | ECHOCS_ITS ---
Reason For Study: MURMUR Procedure This was a 2D Doppler, Color Flow transthoracic echocardiogram. The study was technically difficult. Due to arrhythmia and PT had difficulty tolerating probe pressure due to wound under left breast. Contrast injection was performed. Exam performed portable in patient room. Left Ventricle Normal LV size. The estimated ejection fraction is 60 %. Normal diastology for age. No regional wall motion abnormalities noted. Right Ventricle Mildly dilated right ventricle. Normal systolic function. Atria Normal left atrium. Normal right atrium. No doppler evidence for ASD. Mitral Valve There is no mitral valve stenosis. No mitral valve insufficiency. Tricuspid Valve There is no tricuspid stenosis. Mild tricuspid valve insufficiency. Pulmonary artery systolic pressure is 50 mmHg. Aortic Valve Trisinus/trileaflet aortic valve. There is no aortic stenosis. No aortic valve insufficiency. Pulmonic Valve There is no pulmonic valvular stenosis. No pulmonic valve insufficiency. Great Vessels Normal aortic root. Pericardium/Pleural No pericardial effusion. Medication Diluted definity 6.0ml given slow IV push to enhance endocardial definition. MMode/2D Measurements & Calculations LVIDd: 5.2 cm IVSd: 1.1 cm Ao root diam: 2.9 cm LVIDs: 3.6 cm LVPWd: 1.3 cm RVDd: 3.3 cm FS: 30.8 % LAV(MOD-bp): 64.0 ml LA A4 area: 17.7 cm2 LA dimension(2D): 3.6 cm LAV(MOD-bp) Indexed: 32.2 ml/m2 LAV(MOD-sp2): 70.1 ml LAV(MOD-sp4): 55.3 ml RA A4 area: 16.9 cm2 Doppler Measurements & Calculations MV E max travis: 117.1 cm/sec Ao V2 max: 116.6 cm/sec LV V1 max: 86.7 cm/sec Ao max P.5 mmHg LV V1 max P.0 mmHg PA V2 max: 111.4 cm/sec TR max travis: 319.2 cm/sec TR max P.8 mmHg Interpretation Summary The estimated ejection fraction is 60 %. Normal diastology for age. The study was technically difficult. Diluted definity 6.0ml given slow IV push to enhance endocardial definition. Pulmonary artery systolic pressure is 50 mmHg. Mild tricuspid valve insufficiency. The study was technically difficult. Ordering Physician: Chun Bang Referring Physician: Moe Wise Performed By: Lou Morales, VICKI, RVT
--- NOTE | 2019-08-08 14:38 | PCM.RX.CS ---
Consult Pharmacy has been consulted to manage selected antiobiotic: Vancomycin Type of Consult: Follow-up Suspected Infection: Bacteremia Prior Doses of Antibiotics Received/Current Regimen: VANCOMYCIN 1500MG IV GIVEN 08/07 @ 1757 Labs: Sodium 139 mmol/L (136-145) 08/08/19 05:08 Potassium 4.3 mmol/L (3.5-5.1) 08/08/19 05:08 Chloride 108 mmol/L (98-107) H 08/08/19 05:08 Carbon Dioxide 22.0 mmol/L (21.0-32.0) 08/08/19 05:08 Anion Gap 9 (5-15) 08/08/19 05:08 BUN 45 mg/dL (7-18) H 08/08/19 05:08 Creatinine 3.37 mg/dL (0.55-1.02) H 08/08/19 05:08 Est GFR (MDRD) Af Amer 17 mL/min (>60) L 08/08/19 05:08 Est GFR (MDRD) Non-Af 14 mL/min (>60) L 08/08/19 05:08 BUN/Creatinine Ratio 13.4 RATIO (10-20) 08/08/19 05:08 Glucose 92 mg/dL (74-106) 08/08/19 05:08 Random Vancomycin 10.4 ug/mL (0.0-15.0) 08/08/19 05:08 Microbiology: Microbiology 08/08/19 09:35 Stool Enteric Bacteriology - Final 08/08/19 09:35 Stool C. difficile DNA Amplification - Final 08/07/19 09:20 Sputum, Expectorated/Coughed Respiratory Culture - Preliminary Appears to be normal respiratory ning. Further studies to follow. 08/06/19 20:48 Urine, Catheterized Urine Culture - Final Presumptive C albicans 08/06/19 19:59 Blood Culture (Wb) - Venous Blood Culture - Preliminary Staphylococcus aureus 08/06/19 19:49 Blood Culture (Wb) - Venous Bacteria Detection (PCR) - Final Staphylococcus aureus mecA Resistance Marker 08/06/19 19:49 Blood Culture (Wb) - Venous Blood Culture - Preliminary Staphylococcus aureus 08/06/19 22:50 Mucosa - Nose Influenza Types A,B Direct FA (THAIS) - Final 08/06/19 20:48 Urine Catheter - Catheter Legionella Antigen - Final 08/06/19 20:48 Urine Catheter - Catheter Streptococcus pneumoniae Antigen (M - Final Weight used for dosin kg Estimated Creatinine Clearance: 17.4 Goal Trough: 15-20 mcg/mL Pharmacy Plan for Drug Dosin. Pt is currently not having dialysis due to loss of access. Pt going to surgery tomorrow to have new dialysis catheter put back in and then she may have dialysis afterwards. 2. Pt had a random vancomycin level drawn this morning, level was 10.4 mg/dL and was a 9 hour level 3. Will redose a weight based 2nd HD dose for 750mg x 1 so she does not become oversaturated due to lack of renal function and order a random level for tomorrow morning 4. Pharmacy Service will continue to monitor and adjust dosing as required. Labs to be done on [date and time ordered]: 08/09/19 @ 0600 - with AM labs
[2019-08-08 14:55] LABS: Bedside Glucose 112 mg/dL (70-110)
--- NOTE | 2019-08-08 15:47 | PN.RENAL_ITS ---
Patient Problems: Active and Suspected Problems (Last Updated 08/06/19 @ 19:15 by Moe Wise DO) Problem with dialysis access (Acute) Sepsis (Acute) Subjective: rigors resolved, no further nausea, vomiting. Afebrile on iv vanco for line sepsis. Tunneled catheter removed last night. No dialysis since last as outpt. Await repeat blood cx drawn today before new line placed. Complains of diarrhea, cdiff negative - Physical Exam Vitals/I&O's: Vital Signs Temp Pulse Resp BP Pulse Ox 97.8 F 98 16 112/48 L 94 08/08/19 14:42 08/08/19 14:42 08/08/19 14:42 08/08/19 14:42 08/08/19 14:42 Oxygen Flow Rate (L/min) 2 Oxygen Delivery Method Room Air Weight: 100 kg Body Mass Index (BMI) 40.3 Intake and Output for Last 24 Hours 08/06/19 08/07/19 08/08/19 23:59 23:59 23:59 Intake Total 1380 / 1380 100 / 100 Balance 1380 / 1380 100 / 100 General: Alert, Oriented x3, Cooperative, No apparent distress Lungs: Clear to auscultation Cardiovascular: Regular rate Abdomen: Bowel Sounds Present, Soft, Non Tender, Non-Distended, Obese Extremities: No edema Musculoskeletal: - - debilitated Neurological: - - no tremors Psych/Mental Status: Normal Affect, Appropriate, Alert and oriented to time, place, person, mood and affect Microbiology Past 72 Hours 08/07/19 09:20 Sputum, Expectorated/Coughed Gram Stain - Final 08/07/19 09:20 Sputum, Expectorated/Coughed Respiratory Culture - Preliminary Appears to be normal respiratory ning. Further studies to follow. 08/08/19 09:35 Stool Enteric Bacteriology - Final 08/08/19 09:35 Stool C. difficile DNA Amplification - Final 08/06/19 20:48 Urine, Catheterized Urine Culture - Final Presumptive C albicans 08/06/19 19:59 Blood Culture (Wb) - Venous Blood Culture - Preliminary Staphylococcus aureus 08/06/19 19:49 Blood Culture (Wb) - Venous Bacteria Detection (PCR) - Final Staphylococcus aureus mecA Resistance Marker 08/06/19 19:49 Blood Culture (Wb) - Venous Blood Culture - Preliminary Staphylococcus aureus 08/06/19 22:50 Mucosa - Nose Influenza Types A,B Direct FA (THAIS) - Final 08/06/19 20:48 Urine Catheter - Catheter Legionella Antigen - Final 08/06/19 20:48 Urine Catheter - Catheter Streptococcus pneumoniae Antigen (M - Final Laboratory Results 08/07/19 06:36: POC Glucose 90 08/07/19 17:33: POC Glucose 81 08/07/19 22:16: POC Glucose 108 08/08/19 05:08: WBC 7.4, RBC 2.52 L, Hgb 8.2 L, Hct 26.2 L, MCV 104.0 H, MCH 32.5 H, MCHC 31.3 L, RDW Std Deviation 59.9 H, RDW Coeff of Liza 15.9 H, Plt Co unt 126 L, MPV 10.6 08/08/19 05:08: Sodium 139, Potassium 4.3, Chloride 108 H, Carbon Dioxide 22.0, Anion Gap 9, BUN 45 H, Creatinine 3.37 H, Estim Creat Clear Calc 12.46, Est GFR (MDRD) Af Amer 17 L, Est GFR (MDRD) Non-Af 14 L, BUN/Creatinine Ratio 13.4, Glucose 92, Calcium 8.0 L 08/08/19 05:08: Random Vancomycin 10.4 08/08/19 06:47: POC Glucose 68 L 08/08/19 07:21: POC Glucose 62 L 08/08/19 08:06: POC Glucose 82 08/08/19 10:45: POC Glucose 112 H Microbiology Current Medications Acetaminophen (Tylenol) 650 mg PO Q6H PRN PRN PRN Reason: Pain Score 1-10/Temp > 100.7 F Last Admin: 08/08/19 10:41 Dose: 650 mg Documented by: Albuterol Sulfate (Ventolin Aerosols) 2.5 mg INHALATION Q2H PRN PRN PRN Reason: SHORTNESS OF BREATH Albuterol/Ipratropium (Duoneb) 3 ml INHALATION Q4H.RT [facility] Last Admin: 08/08/19 15:09 Dose: 3 ml Documented by: Amlodipine Besylate (Norvasc) 5 mg PO BID [facility] Last Admin: 08/08/19 09:58 Dose: 5 mg Documented by: Atorvastatin Calcium (Lipitor) 40 mg PO QHS [facility] Last Admin: 08/07/19 22:18 Dose: 40 mg Documented by: Calamine/Phenol (Calmoseptine Ointment) 1 applic TOPICAL TID [facility]; Protocol Calcitriol (Rocaltrol) 0.25 mcg PO DAILY [facility] Last Admin: 08/08/19 10:01 Dose: 0.25 mcg Documented by: Cetirizine HCl (Zyrtec) 10 mg PO QHS [facility] Last Admin: 08/07/19 22:19 Dose: 10 mg Documented by: Citalopram Hydrobromide (Celexa) 40 mg PO DAILY [facility] Last Admin: 08/08/19 09:58 Dose: 40 mg Documented by: Clonidine 0.1 mg/ Clonidine 0. (2 mg) 0.3 mg PO Q6H PRN PRN PRN Reason: SBP > 180 Last Admin: 08/06/19 22:02 Dose: 0.3 mg Documented by: Clopidogrel Bisulfate (Plavix) 75 mg PO DAILY [facility] Last Admin: 08/08/19 09:58 Dose: 75 mg Documented by: Glucagon () 1 mg IM .X1 PRN PRN Reason: Hypoglycemia Guaifenesin/Codeine Phosphate (Robitussin Ac) 5 ml PO Q6H PRN PRN PRN Reason: coughing fits Heparin Sodium (Porcine) (Heparin Na) 5,000 unit SC Q12 [facility] Last Admin: 08/08/19 09:58 Dose: 5,000 unit Documented by: Dextrose (Dextrose 10%-Water) 250 mls @ 999 mls/hr IV .Q16M PRN; Protocol PRN Reason: HYPOGLYCEMIA Vancomycin IV Pharmacy to Dose (1 ea/ Sodium Chloride) 500 mls @ 250 mls/hr IV X1 PRN; Protocol PRN Reason: Rx to Dose Cefazolin Sodium 2 gm/ Sodium (Chloride) 110 mls @ 150 mls/hr IV X1 ONE Stop: 08/09/19 14:28 Vancomycin HCl 750 mg/ Sodium (Chloride) 265 mls @ 250 mls/hr IV X1 ONE Stop: 08/08/19 18:03 Insulin Human Lispro (Humalog Kwikpen (Bkc)) 0 unit SC TIDAC [facility]; Protocol Last Admin: 08/08/19 10:46 Dose: Not Given Documented by: Meloxicam (Mobic) 15 mg PO QHS [facility] Last Admin: 08/07/19 22:18 Dose: 15 mg Documented by: Nystatin (Mycostatin Powder) 1 applic TOPICAL BID [facility]; Protocol Last Admin: 08/08/19 09:57 Dose: 1 applicatio Documented by: Ondansetron HCl (Zofran) 4 mg IV Q8H PRN PRN PRN Reason: NAUSEA/VOMITING Pantoprazole Sodium (Protonix) 40 mg PO QHS [facility] Last Admin: 08/07/19 22:18 Dose: 40 mg Documented by: Sodium Chloride () 10 - 40 ml IV UD PRN PRN Reason: SALINE FLUSH Zolpidem [facility]art[facility] ([facility] (Generic)) [facility] Last Admin: 08/07/19 22:17 Dose: 5 mg Documented by: Medical Necessity - Tobacco Use Smoking Status: Former smoker Tobacco Use: Non-smoker Assessment/Plan All Active Problems (Last Updated 08/06/19 @ 19:15 by Moe Wise DO) Problem with dialysis access (Acute) DM type 2 causing ESRD (Acute) ESRD (end stage renal disease) on dialysis (Acute) Sepsis (Acute) 1. ESRD HD MWF at [facility]. Last dialysis as outpt. missed treatment Tuesday and Tuesday. Tunneled catheter removed last night due to line sepsis. No need for dialysis today. Line placement when blood cx negative. 2. fever, leukocytosis due to staph aureus line sepsis improved today. Repeat blood cx today. redose iv vanco today. 3. Dm2 4. HTN stable 5. Anemia iv iron weekly on dialysis, hgb 9.5g. GWENDOLYN on dialysis 6. Debilitation inambulatory since May 2019. No hx stroke. 7. Chronic leg pain on narcotics. DW hospitalist
--- NOTE | 2019-08-08 16:38 | PCM.HP.ID ---
Problem List (1) MRSA bacteremia Status: Acute Reason for Consult: MRSA (+) bcx Consulted by: Dr. Corrigan History of Present Illness: The patient is a 68 year old F with DM, ESRD, presented 1/ with acute onset chills, not feeling well, nausea, vomiting, and diarrhea. Reports 2 weeks of R chest permacath swelling, pain, redness. Came to ED here, started on vanz/zosyn. Cdiff neg. Bcx (+) MRSA. Permacath removed yesterday by Dr. Bobo with abscess drained. Feeling much better since line removal. No new joint/back pain. Denies any hardware in her body. No prior h/o MRSA. Full ROS performed and neg except as noted above. - Medical History Surgical History: includes DM, esrd, permacath placement Allergies/Adverse Reactions: Allergies loratadine Allergy (Verified 08/06/19 20:11) Unknown tape Allergy (Uncoded 08/06/19 20:11) Rash Home Medications: Ambulatory Orders Medication Instructions Recorded Ambien 10 mg QHS 08/06/19 Amlodipine Besylate 5 mg BID 08/06/19 Atorvastatin Calcium 40 mg DAILY 08/06/19 Calcitriol 0.25 mg DAILY 08/06/19 Cetirizine HCl 10 mg QHS 08/06/19 Citalopram [Celexa] 40 mg PO DAILY 08/06/19 Clopidogrel Bisulfate [Clopidogrel] 75 mg DAILY 08/06/19 Meloxicam 15 mg QHS 08/06/19 Omeprazole 40 mg QHS 08/06/19 Tylenol 650 mg TID PRN PRN 08/06/19 - Social History SMOKING STATUS:: Former smoker Vital Signs Temp Pulse Resp BP Pulse Ox 97.8 F 88 20 H 112/48 L 94 08/08/19 14:42 08/08/19 15:09 08/08/19 15:09 08/08/19 14:42 08/08/19 14:42 Oxygen Flow Rate (L/min) 2 Oxygen Delivery Method Room Air Weight: 100 kg Body Mass Index (BMI) 40.3 Microbiology Past 72 Hours 08/07/19 09:20 Gram Stain - Final Sputum, Expectorated/Coughed Respiratory Culture - Preliminary Appears to be normal respiratory ning. Further studies to follow. 08/08/19 09:35 Enteric Bacteriology - Final Stool 08/08/19 09:35 C. difficile DNA Amplification - Final Stool 08/06/19 20:48 Urine Culture - Final Urine, Catheterized Presumptive C albicans 08/06/19 19:59 Blood Culture - Preliminary Blood Culture (Wb) - Venous Staphylococcus aureus 08/06/19 19:49 Bacteria Detection (PCR) - Final Blood Culture (Wb) - Venous Staphylococcus aureus mecA Resistance Marker Blood Culture - Preliminary Staphylococcus aureus 08/06/19 22:50 Influenza Types A,B Direct FA (THAIS) - Final Mucosa - Nose 08/06/19 20:48 Legionella Antigen - Final Urine Catheter - Catheter 08/06/19 20:48 Streptococcus pneumoniae Antigen (M - Final Urine Catheter - Catheter Laboratory Tests Past 24 Hrs 08/08/19 08/08/19 08/08/19 05:08 05:08 05:08 WBC 7.4 RBC 2.52 L Hgb 8.2 L Hct 26.2 L MCV 104.0 H MCH 32.5 H MCHC 31.3 L RDW Std Deviation 59.9 H RDW Coeff of Liza 15.9 H Plt Count 126 L MPV 10.6 Sodium 139 Potassium 4.3 Chloride 108 H Carbon Dioxide 22.0 Anion Gap 9 BUN 45 H Creatinine 3.37 H Estim Creat Clear Calc 12.46 Est GFR (MDRD) Af Amer 17 L Est GFR (MDRD) Non-Af 14 L BUN/Creatinine Ratio 13.4 Glucose 92 Calcium 8.0 L Random Vancomycin 10.4 - Other Studies Radiology: [] reviewed Other Studies: [] Route of nutrition/ use of supplements: [] Nutritional Intake: [] IV Site: [] Tena Catheter: [] - Physical Exam General: Alert, Oriented x3, Cooperative, No apparent distress HEENT: Atraumatic, PERRLA, EOMI Neck: Supple, No Nodes Lungs: Clear to auscultation, Normal air movement Cardiovascular: Regular rate, Regular Rhythm, No murmurs Abdomen: Soft, Non Tender, Non-Distended Extremities: Edema Skin: No rashes, Incision - s/p R chest permacath removal, - - no janeway/osler/splinter hemorrhages on hands or feet Musculoskeletal: No Tenderness to Palpation of Joints or Extremities - no pain over joints and posterior spine Neurological: Cranial nerves II-XII grossly intact - Assessment/Plan Antibiotics: [] Assessment/Plan: [] Active and Suspected Problems (Last Updated 08/06/19 @ 19:15 by Moe Wise DO) Problem with dialysis access (Acute) Sepsis (Acute) MRSA bacteremia related to dialysis catheter - s/p line removal and abscess drainage 08/07/[address] Bobo. Repeat bcx today to document clearance. Ordering TTE. Ok for tunneled HD access placement once bcx neg at least 48 hours. Cont vanc. Will stop zosyn. Cdiff was neg. Will follow, thank you, d/w Dr. Corrigan.
[2019-08-08] MEDS: Zolpidem Tartrate 5 MG Tablet PO (21:13)
[2019-08-08] MEDS: Menthol/Lanolin/Calamine/Znox 113 GM Tube 1 APPLIC TOPICAL (21:13)
[2019-08-08] MEDS: Atorvastatin Calcium 40 MG Tablet PO (21:14)
[2019-08-08] MEDS: Pantoprazole Sodium 40 MG Tablet PO (21:14)
[2019-08-08] MEDS: Meloxicam 15 MG Tablet PO (21:14)
[2019-08-08] MEDS: CETIRIZINE HCL 10 MG TABLET PO (21:15)
[2019-08-08 21:26] LABS: Bedside Glucose 117 mg/dL (70-110)
[2019-08-08 23:01] LABS: Bedside Glucose 154 mg/dL (70-110)
[2019-08-09] VITALS (9 sets, daily range): BP systolic 131–142; BP diastolic 45–79; PULSE 72–115; RESP 16–20; TEMP 36.5–36.8; O2SAT 92–96
[2019-08-09] MEDS: Ipratropium/Albuterol Sulfate 3 ML AMPUL.NEB INHALATION ×5 (03:17→23:22)
--- NOTE | 2019-08-09 05:00 | EKG12_ITS ---
Test Reason : PREOP Blood Pressure : / mmHG Vent. Rate : 108 BPM Atrial Rate : 277 BPM P-R Int : 000 ms QRS Dur : 084 ms QT Int : 354 ms P-R-T Axes : 000 013 065 degrees QTc Int : 474 ms Atrial fibrillation Nonspecific T wave abnormality Abnormal ECG No previous ECGs available Confirmed by ASHLYN BHATTI, HUNG ([id number]), newspaper photo editor KARIS CALIX ([id number]) on 08/10/2019 1:23:10 PM Referred By: Moe Wise Confirmed By:MELANIE GOLDBERG MD
[2019-08-09] MEDS: Acetaminophen 325 MG Tablet 650 MG PO ×3 (05:25→23:27)
[2019-08-09] MEDS: Menthol/Lanolin/Calamine/Znox 113 GM Tube 1 APPLIC TOPICAL ×3 (05:27→21:53)
--- NOTE | 2019-08-09 05:53 | NURSING ---
Dr. Bobo informed me that pt will be going to OR on Tuesday AM. Would like her to be NPO at midnight ,clipper prep done, surgical labs and ATB labor relations manager for OR changed to Tuesday.
--- NOTE | 2019-08-09 05:57 | PCM.PN.BLA ---
Progress Note Request made to hold placement of new tunneled dialysis catheters to assure microbiology clearance. Operation canceled for today. Patient is rescheduled for left internal jugular tunneled dialysis catheter placement tomorrow. Cultures will need to be reported by 8:30 AM to allow for proceeding with surgery. Chun Bobo M.D., F.A.C.S. STROKE Vital Signs/Narrative: Vital Signs Temp Pulse Resp BP Pulse Ox 08/09/19 03:17 108 H 18 93 08/09/19 03:10 98 F 115 H 20 H 142/45 H 92
[2019-08-09 06:02] LABS: Hematocrit 27.8 % (37-47); Hemoglobin 8.5 g/dL (12.0-15.0); Mean Corp Hgb Conc 30.6 g/dL (32-36); Mean Corpuscular Hgb 30.5 pg (27.0-32.0); Mean Corpuscular Volume 99.6 fL (81-99); Mean Platelet Vol. 10.2 fl (6.2-12.0); Platelet Count 198 K/mm3 (150-450); RBC Distribution Width CV 15.9 % (11.6-14.6); RBC Distribution Width SD 58.6 fl (35.1-43.9); Red Blood Count 2.79 M/mm3 (4.2-5.4); White Blood Count 6.2 K/mm3 (4.4-11.0)
[2019-08-09 06:11] LABS: Anion Gap 8 (5-15); BUN 50 mg/dL (7-18); BUN/Creat Ratio 11.8 RATIO (10-20); Calcium,Total 8.3 mg/dL (8.5-10.1); Chloride 108 mmol/L (98-107); Creatinine, Serum 4.24 mg/dL (0.55-1.02); EST Glomerular Filtration Rate 11 mL/min (>60); Est Glom Filt Rate - Afr Amer 13 mL/min (>60); Glucose 98 mg/dL (74-106); Sodium Level 139 mmol/L (136-145)
[2019-08-09 06:56] LABS: Bedside Glucose 97 mg/dL (70-110)
[2019-08-09] MEDS: Nystatin Powder 15gm Bottle 1 APPLIC TOPICAL ×2 (09:59→21:53)
[2019-08-09] MEDS: Heparin Injection (Vial) 5,000 UNIT/ML VIAL 5000 UNIT SC ×2 (10:00→21:53)
[2019-08-09] MEDS: amLODIPine 5 MG Tablet PO ×2 (10:01→21:54)
[2019-08-09] MEDS: Citalopram 40 MG TABLET PO (10:03)
[2019-08-09] MEDS: Calcitriol 0.25 MCG Capsule PO (10:05)
[2019-08-09] MEDS: Clopidogrel Bisulfate 75 MG Tablet PO (10:06)
--- NOTE | 2019-08-09 10:16 | PN.RENAL_ITS ---
Patient Problems: Active and Suspected Problems (Last Updated 08/06/19 @ 19:15 by Moe Wise DO) Problem with dialysis access (Acute) MRSA bacteremia (Acute) Sepsis (Acute) Subjective: denies nausea, vomiting, cough, sob. Transthoracic echo done at bedside this am. Await bld cx from yesterday. Vanco level 24 this am. Objective: tremors resolved - Physical Exam Vitals/I&O's: Vital Signs Temp Pulse Resp BP Pulse Ox 98.2 F 111 H 16 131/73 H 94 08/09/19 09:42 08/09/19 09:42 08/09/19 09:42 08/09/19 09:42 08/09/19 09:42 Oxygen Flow Rate (L/min) 2 Oxygen Delivery Method Room Air Weight: 100 kg Body Mass Index (BMI) 40.3 Intake and Output for Last 24 Hours 08/07/19 08/08/19 08/09/19 23:59 23:59 23:59 Intake Total 1380 / 1380 815 / 1535 720 / 720 Balance 1380 / 1380 815 / 1535 720 / 720 General: Alert, Oriented x3, Cooperative, No apparent distress Lungs: Clear to auscultation Cardiovascular: Regular rate Microbiology Past 72 Hours 08/07/19 09:20 Sputum, Expectorated/Coughed Gram Stain - Final 08/07/19 09:20 Sputum, Expectorated/Coughed Respiratory Culture - Final 08/06/19 19:59 Blood Culture (Wb) - Venous Blood Culture - Final Meth. resistant Staph. aureus 08/06/19 19:49 Blood Culture (Wb) - Venous Bacteria Detection (PCR) - Final Staphylococcus aureus mecA Resistance Marker 08/06/19 19:49 Blood Culture (Wb) - Venous Blood Culture - Final Meth. resistant Staph. aureus 08/08/19 09:35 Stool Enteric Bacteriology - Final 08/08/19 09:35 Stool C. difficile DNA Amplification - Final 08/06/19 20:48 Urine, Catheterized Urine Culture - Final Presumptive C albicans 08/06/19 22:50 Mucosa - Nose Influenza Types A,B Direct FA (THAIS) - Final 08/06/19 20:48 Urine Catheter - Catheter Legionella Antigen - Final 08/06/19 20:48 Urine Catheter - Catheter Streptococcus pneumoniae Antigen (M - Final Laboratory Results 08/08/19 07:21: POC Glucose 62 L 08/08/19 08:06: POC Glucose 82 08/08/19 10:45: POC Glucose 112 H 08/08/19 16:21: POC Glucose 117 H 08/08/19 21:25: POC Glucose 154 H 08/09/19 05:32: WBC 6.2, RBC 2.79 L, Hgb 8.5 L, Hct 27.8 L, MCV 99.6 H, MCH 30.5, MCHC 30.6 L, RDW Std Deviation 58.6 H, RDW Coeff of Liza 15.9 H, Plt Count 198, MPV 10.2 08/09/19 05:32: Sodium 139, Potassium 4.0, Chloride 108 H, Carbon Dioxide 23.0, Anion Gap 8, BUN 50 H, Creatinine 4.24 H, Estim Creat Clear Calc 9.90, Est GFR (MDRD) Af Amer 13 L, Est GFR (MDRD) Non-Af 11 L, BUN/Creatinine Ratio 11.8, Glucose 98, Calcium 8.3 L 08/09/19 05:40: Random Vancomycin 24.0 H 08/09/19 06:50: POC Glucose 97 Current Medications Acetaminophen (Tylenol) 650 mg PO Q6H PRN PRN PRN Reason: Pain Score 1-10/Temp > 100.7 F Last Admin: 08/09/19 05:25 Dose: 650 mg Documented by: Albuterol Sulfate (Ventolin Aerosols) 2.5 mg INHALATION Q2H PRN PRN PRN Reason: SHORTNESS OF BREATH Albuterol/Ipratropium (Duoneb) 3 ml INHALATION Q4H.RT [facility] Last Admin: 08/09/19 07:11 Dose: 3 ml Documented by: Amlodipine Besylate (Norvasc) 5 mg PO BID [facility] Last Admin: 08/09/19 10:01 Dose: 5 mg Documented by: Atorvastatin Calcium (Lipitor) 40 mg PO QHS [facility] Last Admin: 08/08/19 21:14 Dose: 40 mg Documented by: Calamine/Phenol (Calmoseptine Ointment) 1 applic TOPICAL TID [facility]; Protocol Last Admin: 08/09/19 05:27 Dose: 1 applicatio Documented by: Calcitriol (Rocaltrol) 0.25 mcg PO DAILY [facility] Last Admin: 08/09/19 10:05 Dose: 0.25 mcg Documented by: Cetirizine HCl (Zyrtec) 10 mg PO QHS [facility] Last Admin: 08/08/19 21:15 Dose: 10 mg Documented by: Citalopram Hydrobromide (Celexa) 40 mg PO DAILY [facility] Last Admin: 08/09/19 10:03 Dose: 40 mg Documented by: Clonidine 0.1 mg/ Clonidine 0. (2 mg) 0.3 mg PO Q6H PRN PRN PRN Reason: SBP > 180 Last Admin: 08/06/19 22:02 Dose: 0.3 mg Documented by: Clopidogrel Bisulfate (Plavix) 75 mg PO DAILY [facility] Last Admin: 08/09/19 10:06 Dose: 75 mg Documented by: Glucagon () 1 mg IM .X1 PRN PRN Reason: Hypoglycemia Guaifenesin/Codeine Phosphate (Robitussin Ac) 5 ml PO Q6H PRN PRN PRN Reason: coughing fits Heparin Sodium (Porcine) (Heparin Na) 5,000 unit SC Q12 [facility] Last Admin: 08/09/19 10:00 Dose: 5,000 unit Documented by: Dextrose (Dextrose 10%-Water) 250 mls @ 999 mls/hr IV .Q16M PRN; Protocol PRN Reason: HYPOGLYCEMIA Vancomycin IV Pharmacy to Dose (1 ea/ Sodium Chloride) 500 mls @ 250 mls/hr IV X1 PRN; Protocol PRN Reason: Rx to Dose Cefazolin Sodium 2 gm/ Sodium (Chloride) 110 mls @ 150 mls/hr IV X1 ONE Stop: 08/10/19 06:43 Insulin Human Lispro (Humalog Kwikpen (Bkc)) 0 unit SC TIDAC [facility]; Protocol Last Admin: 08/09/19 06:52 Dose: Not Given Documented by: Meloxicam (Mobic) 15 mg PO QHS [facility] Last Admin: 08/08/19 21:14 Dose: 15 mg Documented by: Nystatin (Mycostatin Powder) 1 applic TOPICAL BID [facility]; Protocol Last Admin: 08/09/19 09:59 Dose: 1 applicatio Documented by: Ondansetron HCl (Zofran) 4 mg IV Q8H PRN PRN PRN Reason: NAUSEA/VOMITING Pantoprazole Sodium (Protonix) 40 mg PO QHS [facility] Last Admin: 08/08/19 21:14 Dose: 40 mg Documented by: Sodium Chloride () 10 - 40 ml IV UD PRN PRN Reason: SALINE FLUSH Zolpidem Tartrate (Ambien (Generic)) 5 mg PO QHS [facility] Last Admin: 08/08/19 21:13 Dose: 5 mg Documented by: Medical Necessity - Tobacco Use Smoking Status: Former smoker Tobacco Use: Non-smoker Assessment/Plan All Active Problems (Last Updated 08/06/19 @ 19:15 by Moe Wise DO) Problem with dialysis access (Acute) MRSA bacteremia (Acute) DM type 2 causing ESRD (Acute) ESRD (end stage renal disease) on dialysis (Acute) Sepsis (Acute) 1. ESRD HD MWF at [facility]. Last dialysis last as outpt. No need for urgent dialysis today. 2. MRSA line sepsis. Vanco level 24 today. Hold dose today. Await blood cx 3. Dm2 stable 4. HTN stable 5. Anemia iv iron weekly on dialysis, GWENDOLYN 6. Debilitation 7. Chronic leg pain on narcotics. DW ID
--- NOTE | 2019-08-09 10:40 | PCM.PN.ID ---
Patient Problems: Active and Suspected Problems (Last Updated 08/06/19 @ 19:15 by Moe Wise DO) Problem with dialysis access (Acute) MRSA bacteremia (Acute) Sepsis (Acute) Subjective: Feeling ok, no fever, no n/v/d. - Physical Exam Vitals/I&O's: Vital Signs Temp Pulse Resp BP Pulse Ox 98.2 F 111 H 16 131/73 H 94 08/09/19 09:42 08/09/19 09:42 08/09/19 09:42 08/09/19 09:42 08/09/19 09:42 Oxygen Flow Rate (L/min) 2 Oxygen Delivery Method Room Air Weight: 100 kg Body Mass Index (BMI) 40.3 Intake and Output for Last 24 Hours 08/07/19 08/08/19 08/09/19 23:59 23:59 23:59 Intake Total 1380 / 1380 815 / 1535 720 / 720 Balance 1380 / 1380 815 / 1535 720 / 720 General: Cooperative, No apparent distress Lungs: Clear to auscultation, Normal air movement Cardiovascular: Regular rate, Regular Rhythm Abdomen: Soft, Non Tender, Non-Distended Skin: No rashes Microbiology Past 72 Hours 08/07/19 09:20 Sputum, Expectorated/Coughed Gram Stain - Final 08/07/19 09:20 Sputum, Expectorated/Coughed Respiratory Culture - Final 08/06/19 19:59 Blood Culture (Wb) - Venous Blood Culture - Final Meth. resistant Staph. aureus 08/06/19 19:49 Blood Culture (Wb) - Venous Bacteria Detection (PCR) - Final Staphylococcus aureus mecA Resistance Marker 08/06/19 19:49 Blood Culture (Wb) - Venous Blood Culture - Final Meth. resistant Staph. aureus 08/08/19 09:35 Stool Enteric Bacteriology - Final 08/08/19 09:35 Stool C. difficile DNA Amplification - Final 08/06/19 20:48 Urine, Catheterized Urine Culture - Final Presumptive C albicans 08/06/19 22:50 Mucosa - Nose Influenza Types A,B Direct FA (THAIS) - Final 08/06/19 20:48 Urine Catheter - Catheter Legionella Antigen - Final 08/06/19 20:48 Urine Catheter - Catheter Streptococcus pneumoniae Antigen (M - Final Laboratory Results 08/08/19 07:21: POC Glucose 62 L 08/08/19 08:06: POC Glucose 82 08/08/19 10:45: POC Glucose 112 H 08/08/19 16:21: POC Glucose 117 H 08/08/19 21:25: POC Glucose 154 H 08/09/19 05:32: WBC 6.2, RBC 2.79 L, Hgb 8.5 L, Hct 27.8 L, MCV 99.6 H, MCH 30.5, MCHC 30.6 L, RDW Std Deviation 58.6 H, RDW Coeff of Liza 15.9 H, Plt Count 198, MPV 10.2 08/09/19 05:32: Sodium 139, Potassium 4.0, Chloride 108 H, Carbon Dioxide 23.0, Anion Gap 8, BUN 50 H, Creatinine 4.24 H, Estim Creat Clear Calc 9.90, Est GFR (MDRD) Af Amer 13 L, Est GFR (MDRD) Non-Af 11 L, BUN/Creatinine Ratio 11.8, Glucose 98, Calcium 8.3 L 08/09/19 05:40: Random Vancomycin 24.0 H 08/09/19 06:50: POC Glucose 97 Current Medications Acetaminophen (Tylenol) 650 mg PO Q6H PRN PRN PRN Reason: Pain Score 1-10/Temp > 100.7 F Last Admin: 08/09/19 05:25 Dose: 650 mg Documented by: Albuterol Sulfate (Ventolin Aerosols) 2.5 mg INHALATION Q2H PRN PRN PRN Reason: SHORTNESS OF BREATH Albuterol/Ipratropium (Duoneb) 3 ml INHALATION Q4H.RT [facility] Last Admin: 08/09/19 07:11 Dose: 3 ml Documented by: Amlodipine Besylate (Norvasc) 5 mg PO BID [facility] Last Admin: 08/09/19 10:01 Dose: 5 mg Documented by: Atorvastatin Calcium (Lipitor) 40 mg PO QHS [facility] Last Admin: 08/08/19 21:14 Dose: 40 mg Documented by: Calamine/Phenol (Calmoseptine Ointment) 1 applic TOPICAL TID [facility]; Protocol Last Admin: 08/09/19 05:27 Dose: 1 applicatio Documented by: Calcitriol (Rocaltrol) 0.25 mcg PO DAILY [facility] Last Admin: 08/09/19 10:05 Dose: 0.25 mcg Documented by: Cetirizine HCl (Zyrtec) 10 mg PO QHS [facility] Last Admin: 08/08/19 21:15 Dose: 10 mg Documented by: Citalopram Hydrobromide (Celexa) 40 mg PO DAILY [facility] Last Admin: 08/09/19 10:03 Dose: 40 mg Documented by: Clonidine 0.1 mg/ Clonidine 0. (2 mg) 0.3 mg PO Q6H PRN PRN PRN Reason: SBP > 180 Last Admin: 08/06/19 22:02 Dose: 0.3 mg Documented by: Clopidogrel Bisulfate (Plavix) 75 mg PO DAILY [facility] Last Admin: 08/09/19 10:06 Dose: 75 mg Documented by: Glucagon () 1 mg IM .X1 PRN PRN Reason: Hypoglycemia Guaifenesin/Codeine Phosphate (Robitussin Ac) 5 ml PO Q6H PRN PRN PRN Reason: coughing fits Heparin Sodium (Porcine) (Heparin Na) 5,000 unit SC Q12 [facility] Last Admin: 08/09/19 10:00 Dose: 5,000 unit Documented by: Dextrose (Dextrose 10%-Water) 250 mls @ 999 mls/hr IV .Q16M PRN; Protocol PRN Reason: HYPOGLYCEMIA Vancomycin IV Pharmacy to Dose (1 ea/ Sodium Chloride) 500 mls @ 250 mls/hr IV X1 PRN; Protocol PRN Reason: Rx to Dose Cefazolin Sodium 2 gm/ Sodium (Chloride) 110 mls @ 150 mls/hr IV X1 ONE Stop: 08/10/19 06:43 Insulin Human Lispro (Humalog Kwikpen (Bkc)) 0 unit SC TIDAC [facility]; Protocol Last Admin: 08/09/19 06:52 Dose: Not Given Documented by: Meloxicam (Mobic) 15 mg PO QHS [facility] Last Admin: 08/08/19 21:14 Dose: 15 mg Documented by: Nystatin (Mycostatin Powder) 1 applic TOPICAL BID [facility]; Protocol Last Admin: 08/09/19 09:59 Dose: 1 applicatio Documented by: Ondansetron HCl (Zofran) 4 mg IV Q8H PRN PRN PRN Reason: NAUSEA/VOMITING Pantoprazole Sodium (Protonix) 40 mg PO QHS [facility] Last Admin: 08/08/19 21:14 Dose: 40 mg Documented by: Sodium Chloride () 10 - 40 ml IV UD PRN PRN Reason: SALINE FLUSH Zolpidem Tartrate (Ambien (Generic)) 5 mg PO QHS [facility] Last Admin: 08/08/19 21:13 Dose: 5 mg Documented by: Medical Necessity - Tobacco Use Smoking Status: Former smoker Tobacco Use: Non-smoker Route of nutrition/ use of supplements: [] Nutritional Intake: [] IV Site: [] Tena Catheter: [] - Assessment/Plan Antibiotics: [] Assessment/Plan: [] Active and Suspected Problems (Last Updated 08/06/19 @ 19:15 by Moe Wise DO) Problem with dialysis access (Acute) Sepsis (Acute) MRSA bacteremia related to dialysis catheter - s/p line removal and abscess drainage 08/07/[address] Bobo. Repeat bcx today to document clearance. Pending TTE. Ok for tunneled HD access placement once bcx neg at least 48 hours. Cont vanc. Cdiff was neg. Will follow, d/w Dr. Schwartz
[2019-08-09 11:25] LABS: Bedside Glucose 99 mg/dL (70-110)
--- NOTE | 2019-08-09 13:21 | PN_ITS ---
<Franki Patel - Last Filed: 08/09/19 13:21> Patient Problems: Active and Suspected Problems (Last Updated 08/06/19 @ 19:15 by Moe Wise DO) Problem with dialysis access (Acute) MRSA bacteremia (Acute) Sepsis (Acute) Reason for Visit: Pts primary complaint today is that she does not find the food appetizing. No CP , SOB, fever, chills. No pain. Pt waiting for blood cultures to clear, plans to go home with support from family with IV abx with dialysis. Vitals/I&O's: Vital Signs Temp Pulse Resp BP Pulse Ox 98.2 F 100 20 H 131/73 H 96 08/09/19 09:42 08/09/19 11:10 08/09/19 11:10 08/09/19 09:42 08/09/19 11:10 Oxygen Flow Rate (L/min) 2 Oxygen Delivery Method Room Air Weight: 220 lb 7.396 oz Body Mass Index (BMI) 40.3 Intake and Output for Last 24 Hours 08/07/19 08/08/19 08/09/19 23:59 23:59 23:59 Intake Total 1380 / 1380 815 / 1535 960 / 960 Balance 1380 / 1380 815 / 1535 960 / 960 General: Alert, Oriented x3, Cooperative HEENT: Atraumatic, PERRLA, EOMI, Normocephalic Neck: Supple, No JVD, Negative Carotid Bruits Lungs: Clear to auscultation, Normal air movement Cardiovascular: Regular rate, No murmurs Abdomen: Bowel Sounds Present, Soft, Non Tender, Obese Extremities: No edema, Capillary Refill Less than 3 Seconds Skin: No rashes, No breakdown Musculoskeletal: No Tenderness to Palpation of Joints or Extremities Neurological: Cranial nerves II-XII grossly intact Psych/Mental Status: Normal Affect, Appropriate, Alert and oriented to time, place, person, mood and affect Microbiology Past 72 Hours 08/06/19 22:50 Mucosa - Nose Respiratory Panel (PCR) - Final 08/07/19 09:20 Sputum, Expectorated/Coughed Gram Stain - Final 08/07/19 09:20 Sputum, Expectorated/Coughed Respiratory Culture - Final 08/06/19 19:59 Blood Culture (Wb) - Venous Blood Culture - Final Meth. resistant Staph. aureus 08/06/19 19:49 Blood Culture (Wb) - Venous Bacteria Detection (PCR) - Final Staphylococcus aureus mecA Resistance Marker 08/06/19 19:49 Blood Culture (Wb) - Venous Blood Culture - Final Meth. resistant Staph. aureus 08/08/19 09:35 Stool Enteric Bacteriology - Final 08/08/19 09:35 Stool C. difficile DNA Amplification - Final 08/06/19 20:48 Urine, Catheterized Urine Culture - Final Presumptive C albicans 08/06/19 22:50 Mucosa - Nose Influenza Types A,B Direct FA (THAIS) - Final 08/06/19 20:48 Urine Catheter - Catheter Legionella Antigen - Final 08/06/19 20:48 Urine Catheter - Catheter Streptococcus pneumoniae Antigen (M - Final Laboratory Results 08/08/19 10:45: POC Glucose 112 H 08/08/19 16:21: POC Glucose 117 H 08/08/19 21:25: POC Glucose 154 H 08/09/19 05:32: WBC 6.2, RBC 2.79 L, Hgb 8.5 L, Hct 27.8 L, MCV 99.6 H, MCH 30.5, MCHC 30.6 L, RDW Std Deviation 58.6 H, RDW Coeff of Liza 15.9 H, Plt Count 198, MPV 10.2 08/09/19 05:32: Sodium 139, Potassium 4.0, Chloride 108 H, Carbon Dioxide 23.0, Anion Gap 8, BUN 50 H, Creatinine 4.24 H, Estim Creat Clear Calc 9.90, Est GFR (MDRD) Af Amer 13 L, Est GFR (MDRD) Non-Af 11 L, BUN/Creatinine Ratio 11.8, Glucose 98, Calcium 8.3 L 08/09/19 05:40: Random Vancomycin 24.0 H 08/09/19 06:50: POC Glucose 97 08/09/19 11:22: POC Glucose 99 Current Medications Acetaminophen (Tylenol) 650 mg PO Q6H PRN PRN PRN Reason: Pain Score 1-10/Temp > 100.7 F Last Admin: 08/09/19 05:25 Dose: 650 mg Documented by: Albuterol Sulfate (Ventolin Aerosols) 2.5 mg INHALATION Q2H PRN PRN PRN Reason: SHORTNESS OF BREATH Albuterol/Ipratropium (Duoneb) 3 ml INHALATION Q4H.RT [facility] Last Admin: 08/09/19 11:10 Dose: 3 ml Documented by: Amlodipine Besylate (Norvasc) 5 mg PO BID [facility] Last Admin: 08/09/19 10:01 Dose: 5 mg Documented by: Atorvastatin Calcium (Lipitor) 40 mg PO QHS [facility] Last Admin: 08/08/19 21:14 Dose: 40 mg Documented by: Calamine/Phenol (Calmoseptine Ointment) 1 applic TOPICAL TID [facility]; Protocol Last Admin: 08/09/19 13:17 Dose: 1 applicatio Documented by: Calcitriol (Rocaltrol) 0.25 mcg PO DAILY [facility] Last Admin: 08/09/19 10:05 Dose: 0.25 mcg Documented by: Cetirizine HCl (Zyrtec) 10 mg PO QHS [facility] Last Admin: 08/08/19 21:15 Dose: 10 mg Documented by: Citalopram Hydrobromide (Celexa) 40 mg PO DAILY [facility] Last Admin: 08/09/19 10:03 Dose: 40 mg Documented by: Clonidine 0.1 mg/ Clonidine 0. (2 mg) 0.3 mg PO Q6H PRN PRN PRN Reason: SBP > 180 Last Admin: 08/06/19 22:02 Dose: 0.3 mg Documented by: Clopidogrel Bisulfate (Plavix) 75 mg PO DAILY [facility] Last Admin: 08/09/19 10:06 Dose: 75 mg Documented by: Glucagon () 1 mg IM .X1 PRN PRN Reason: Hypoglycemia Guaifenesin/Codeine Phosphate (Robitussin Ac) 5 ml PO Q6H PRN PRN PRN Reason: coughing fits Heparin Sodium (Porcine) (Heparin Na) 5,000 unit SC Q12 [facility] Last Admin: 08/09/19 10:00 Dose: 5,000 unit Documented by: Dextrose (Dextrose 10%-Water) 250 mls @ 999 mls/hr IV .Q16M PRN; Protocol PRN Reason: HYPOGLYCEMIA Vancomycin IV Pharmacy to Dose (1 ea/ Sodium Chloride) 500 mls @ 250 mls/hr IV X1 PRN; Protocol PRN Reason: Rx to Dose Cefazolin Sodium 2 gm/ Sodium (Chloride) 110 mls @ 150 mls/hr IV X1 ONE Stop: 08/10/19 06:43 Insulin Human Lispro (Humalog Kwikpen (Bkc)) 0 unit SC TIDAC [facility]; Protocol Last Admin: 08/09/19 11:24 Dose: Not Given Documented by: Meloxicam (Mobic) 15 mg PO QHS [facility] Last Admin: 08/08/19 21:14 Dose: 15 mg Documented by: Nystatin (Mycostatin Powder) 1 applic TOPICAL BID [facility]; Protocol Last Admin: 08/09/19 09:59 Dose: 1 applicatio Documented by: Ondansetron HCl (Zofran) 4 mg IV Q8H PRN PRN PRN Reason: NAUSEA/VOMITING Pantoprazole Sodium (Protonix) 40 mg PO QHS [facility] Last Admin: 08/08/19 21:14 Dose: 40 mg Documented by: Sodium Chloride () 10 - 40 ml IV UD PRN PRN Reason: SALINE FLUSH Zolpidem Tartrate (Ambien (Generic)) 5 mg PO QHS [facility] Last Admin: 08/08/19 21:13 Dose: 5 mg Documented by: STROKE Vital Signs/Narrative: Vital Signs Temp Pulse Resp BP Pulse Ox 08/09/19 11:10 100 20 H 96 08/09/19 09:42 98.2 F 111 H 16 131/73 H 94 Medical Necessity - Tobacco Use Smoking Status: Former smoker Tobacco Use: Non-smoker Assessment/Plan All Active Problems (Last Updated 08/06/19 @ 19:15 by Moe Wise DO) Problem with dialysis access (Acute) MRSA bacteremia (Acute) DM type 2 causing ESRD (Acute) ESRD (end stage renal disease) on dialysis (Acute) Sepsis (Acute) 1. Sepsis/Bacteremia - related to dialysis cath. MRSA. ID/Nephro/Vasc surg following. Repeat blood cx pending. Possibly will receive new dialysis cath tomorrow. TTE with no vegetation. EF 60%, PASP 50 mmHg. No fever/leukcoytosis. Continue vanco/cefazolin. 2. ESRD - dialysis per Dr. Schwartz. 3. HTN - stable 4. T2DM, obesity - diet controlled 5. Debility -PTOT. 6. HLD - on statin 7. GERD - on ppi 8. Chronic anemia, probably due to ESRD - stable 9. Dep/anx - celexa, ambien DVT ppx: heparin DC planning: home with family, resume o/p dialysis, IV abx with dialysis. waiting for negative blood cx and cath surgery. This patient was seen by Franki Patel PA-C under the supervision of Doctor Meenu. <Pollo Corrigan F - Last Filed: 08/09/19 14:53> Vitals/I&O's: Vital Signs Temp Pulse Resp BP Pulse Ox 98.2 F 100 20 H 131/73 H 96 08/09/19 09:42 08/09/19 11:10 08/09/19 11:10 08/09/19 09:42 08/09/19 11:10 Oxygen Flow Rate (L/min) 2 Oxygen Delivery Method Room Air Weight: 220 lb 7.396 oz Body Mass Index (BMI) 40.3 Intake and Output for Last 24 Hours 08/07/19 08/08/19 08/09/19 23:59 23:59 23:59 Intake Total 1380 / 1380 815 / 1535 960 / 960 Balance 1380 / 1380 815 / 1535 960 / 960 Microbiology Past 72 Hours 08/06/19 22:50 Mucosa - Nose Respiratory Panel (PCR) - Final 08/07/19 09:20 Sputum, Expectorated/Coughed Gram Stain - Final 08/07/19 09:20 Sputum, Expectorated/Coughed Respiratory Culture - Final 08/06/19 19:59 Blood Culture (Wb) - Venous Blood Culture - Final Meth. resistant Staph. aureus 08/06/19 19:49 Blood Culture (Wb) - Venous Bacteria Detection (PCR) - Final Staphylococcus aureus mecA Resistance Marker 08/06/19 19:49 Blood Culture (Wb) - Venous Blood Culture - Final Meth. resistant Staph. aureus 08/08/19 09:35 Stool Enteric Bacteriology - Final 08/08/19 09:35 Stool C. difficile DNA Amplification - Final 08/06/19 20:48 Urine, Catheterized Urine Culture - Final Presumptive C albicans 08/06/19 22:50 Mucosa - Nose Influenza Types A,B Direct FA (THAIS) - Final 08/06/19 20:48 Urine Catheter - Catheter Legionella Antigen - Final 08/06/19 20:48 Urine Catheter - Catheter Streptococcus pneumoniae Antigen (M - Final Laboratory Results 08/08/19 10:45: POC Glucose 112 H 08/08/19 16:21: POC Glucose 117 H 08/08/19 21:25: POC Glucose 154 H 08/09/19 05:32: WBC 6.2, RBC 2.79 L, Hgb 8.5 L, Hct 27.8 L, MCV 99.6 H, MCH 30.5, MCHC 30.6 L, RDW Std Deviation 58.6 H, RDW Coeff of Liza 15.9 H, Plt Count 198, MPV 10.2 08/09/19 05:32: Sodium 139, Potassium 4.0, Chloride 108 H, Carbon Dioxide 23.0, Anion Gap 8, BUN 50 H, Creatinine 4.24 H, Estim Creat Clear Calc 9.90, Est GFR (MDRD) Af Amer 13 L, Est GFR (MDRD) Non-Af 11 L, BUN/Creatinine Ratio 11.8, Glucose 98, Calcium 8.3 L 08/09/19 05:40: Random Vancomycin 24.0 H 08/09/19 06:50: POC Glucose 97 08/09/19 11:22: POC Glucose 99 Current Medications Acetaminophen (Tylenol) 650 mg PO Q6H PRN PRN PRN Reason: Pain Score 1-10/Temp > 100.7 F Last Admin: 08/09/19 13:21 Dose: 650 mg Documented by: Albuterol Sulfate (Ventolin Aerosols) 2.5 mg INHALATION Q2H PRN PRN PRN Reason: SHORTNESS OF BREATH Albuterol/Ipratropium (Duoneb) 3 ml INHALATION Q4H.RT [facility] Last Admin: 08/09/19 11:10 Dose: 3 ml Documented by: Amlodipine Besylate (Norvasc) 5 mg PO BID [facility] Last Admin: 08/09/19 10:01 Dose: 5 mg Documented by: Atorvastatin Calcium (Lipitor) 40 mg PO QHS [facility] Last Admin: 08/08/19 21:14 Dose: 40 mg Documented by: Calamine/Phenol (Calmoseptine Ointment) 1 applic TOPICAL TID [facility]; Protocol Last Admin: 08/09/19 13:17 Dose: 1 applicatio Documented by: Calcitriol (Rocaltrol) 0.25 mcg PO DAILY [facility] Last Admin: 08/09/19 10:05 Dose: 0.25 mcg Documented by: Cetirizine HCl (Zyrtec) 10 mg PO QHS [facility] Last Admin: 08/08/19 21:15 Dose: 10 mg Documented by: Citalopram Hydrobromide (Celexa) 40 mg PO DAILY [facility] Last Admin: 08/09/19 10:03 Dose: 40 mg Documented by: Clonidine 0.1 mg/ Clonidine 0. (2 mg) 0.3 mg PO Q6H PRN PRN PRN Reason: SBP > 180 Last Admin: 08/06/19 22:02 Dose: 0.3 mg Documented by: Clopidogrel Bisulfate (Plavix) 75 mg PO DAILY [facility] Last Admin: 08/09/19 10:06 Dose: 75 mg Documented by: Glucagon () 1 mg IM .X1 PRN PRN Reason: Hypoglycemia Guaifenesin/Codeine Phosphate (Robitussin Ac) 5 ml PO Q6H PRN PRN PRN Reason: coughing fits Heparin Sodium (Porcine) (Heparin Na) 5,000 unit SC Q12 [facility] Last Admin: 08/09/19 10:00 Dose: 5,000 unit Documented by: Dextrose (Dextrose 10%-Water) 250 mls @ 999 mls/hr IV .Q16M PRN; Protocol PRN Reason: HYPOGLYCEMIA Vancomycin IV Pharmacy to Dose (1 ea/ Sodium Chloride) 500 mls @ 250 mls/hr IV X1 PRN; Protocol PRN Reason: Rx to Dose Cefazolin Sodium 2 gm/ Sodium (Chloride) 110 mls @ 150 mls/hr IV X1 ONE Stop: 08/10/19 06:43 Insulin Human Lispro (Humalog Kwikpen (Bkc)) 0 unit SC TIDAC [facility]; Protocol Last Admin: 08/09/19 11:24 Dose: Not Given Documented by: Meloxicam (Mobic) 15 mg PO QHS [facility] Last Admin: 08/08/19 21:14 Dose: 15 mg Documented by: Nystatin (Mycostatin Powder) 1 applic TOPICAL BID [facility]; Protocol Last Admin: 08/09/19 09:59 Dose: 1 applicatio Documented by: Ondansetron HCl (Zofran) 4 mg IV Q8H PRN PRN PRN Reason: NAUSEA/VOMITING Pantoprazole Sodium (Protonix) 40 mg PO QHS [facility] Last Admin: 08/08/19 21:14 Dose: 40 mg Documented by: Sodium Chloride () 10 - 40 ml IV UD PRN PRN Reason: SALINE FLUSH Zolpidem Tartrate (Ambien (Generic)) 5 mg PO QHS [facility] Last Admin: 08/08/19 21:13 Dose: 5 mg Documented by: STROKE Vital Signs/Narrative: Vital Signs Pulse Resp Pulse Ox 08/09/19 11:10 100 20 H 96 Code Visit Addendum: Dr. Corrigan I personally examined the patient and reviewed the chart. I agree with the above. 68-year-old female who presented to an outside hospital with coughing wh ich led to vomiting as well as a chest x-ray which demonstrated a possible consolidation in the left thorax which may have been chronic. She also was a dialysis patient who had a tunneled catheter that had slight redness around it and therefore was pulled by surgery and was found to have a large amount of purulent material. She was also found to have bacteremia from MRSA and was started on vancomycin. Repeat cultures were drawn yesterday to confirm clearance and hopefully they will be negative tomorrow so repeat tunneled catheter could be placed and she could undergo dialysis which she has not had since . She is feeling better today without Reiger's and her only complaint is about the food. TTE was unremarkable for any valvular vegetations. Inpatient E&M: 64461 Subs Hosp L2
--- NOTE | 2019-08-09 15:28 | NURSING ---
Called daughter Michelle to give her an update, she called this and requested nurse call her.
[2019-08-09 16:50] LABS: Bedside Glucose 97 mg/dL (70-110)
[2019-08-09] MEDS: Zolpidem Tartrate 5 MG Tablet PO (21:52)
[2019-08-09] MEDS: Meloxicam 15 MG Tablet PO (21:53)
[2019-08-09] MEDS: Atorvastatin Calcium 40 MG Tablet PO (21:53)
[2019-08-09] MEDS: Pantoprazole Sodium 40 MG Tablet PO (21:54)
[2019-08-09] MEDS: CETIRIZINE HCL 10 MG TABLET PO (21:54)
[2019-08-09 22:10] LABS: Bedside Glucose 92 mg/dL (70-110)
[2019-08-10] VITALS (15 sets, daily range): BP systolic 123–168; BP diastolic 49–83; PULSE 76–116; RESP 16–28; TEMP 36.4–37.5; O2SAT 20–98; BMI 40.3
[2019-08-10] MEDS: Ipratropium/Albuterol Sulfate 3 ML AMPUL.NEB INHALATION ×2 (03:35→19:53)
[2019-08-10] MEDS: Menthol/Lanolin/Calamine/Znox 113 GM Tube 1 APPLIC TOPICAL ×2 (05:40→21:57)
[2019-08-10 06:24] LABS: Hematocrit 27.5 % (37-47); Hemoglobin 8.3 g/dL (12.0-15.0); Mean Corp Hgb Conc 30.2 g/dL (32-36); Mean Corpuscular Volume 99.3 fL (81-99); Mean Platelet Vol. 10.1 fl (6.2-12.0); Platelet Count 224 K/mm3 (150-450); RBC Distribution Width CV 15.9 % (11.6-14.6); RBC Distribution Width SD 57.8 fl (35.1-43.9); Red Blood Count 2.77 M/mm3 (4.2-5.4); White Blood Count 6.3 K/mm3 (4.4-11.0)
[2019-08-10 06:46] LABS: Anion Gap 5 (5-15); BUN 52 mg/dL (7-18); BUN/Creat Ratio 11.8 RATIO (10-20); Calcium,Total 8.1 mg/dL (8.5-10.1); Chloride 110 mmol/L (98-107); EST Glomerular Filtration Rate 11 mL/min (>60); Est Glom Filt Rate - Afr Amer 13 mL/min (>60); Estimated Creatinine Clearance 9.54 ml/min; Glucose 81 mg/dL (74-106); Potassium 4.1 mmol/L (3.5-5.1); Sodium Level 139 mmol/L (136-145)
[2019-08-10 07:00] LABS: Bedside Glucose 87 mg/dL (70-110)
--- NOTE | 2019-08-10 09:26 | NURSING ---
report called to [facility] in [facility], pt transported off unit at this time via bed, pre-op antibiotic sent with patient.
[2019-08-10] MEDS: 0.9% Normal Saline 1,000 ML 30 ML IV (09:37)
[2019-08-10 10:33] LABS: Vancomycin, Random Level 20.6 ug/mL (0.0-15.0)
--- NOTE | 2019-08-10 11:25 | RAD_ITS ---
STUDY: X-RAY CHEST REASON FOR EXAM: Female, 68 years old. POST HEMODIALYSIS CATHETER PLACEMENT TECHNIQUE: Single AP portable view of the chest. COMPARISON: Comparison is made with prior study dated August 06, 2019. FINDINGS: A left-sided double-lumen catheter has been placed. The tip is in the right atrium. The previously seen right double-lumen catheter has been removed. The lungs are clear and expanded. There is no demonstrated pleural abnormality. There is moderate cardiac enlargement. Normal mediastinum and magalie. Normal visualized pulmonary arteries. There is atherosclerotic calcification of the aortic arch with tortuosity. Normal visualized thoracic spine. Normal visualized ribs, clavicles, and shoulders. There is no demonstrated abnormality of the visualized soft tissue structures of the upper abdomen. RAD/CXR for Line Placement IMPRESSION: The tip of the left-sided double lumen catheter is in the right atrium. Electronically Signed: Joseph Valencia, at 12:54 EST , Service support ,
[2019-08-10] MEDS: Cefazolin 2 GM in 0.9% Normal Saline 100 ML IV (11:27)
[2019-08-10] MEDS: Heparin 10,000 UNITS/10 ML Vial 10000 UNITS (11:55)
[2019-08-10] MEDS: Bupivacaine Mpf 0.5% 30 ML VIAL (11:55)
--- NOTE | 2019-08-10 12:00 | CASEMGMT ---
VLADIMIR MCCAIN in to discuss discharge needs with daughter. Daughter would like home therapy for patient with [facility], whom patient has had in the past. Daughter denied need for shelter HHC at discharge. Patient will have IV Vanco with Dialysis. VLADIMIR MCCAIN sent referral to [facility] and are able to accept patient. Script for IV Vanco faxed to [facility]. VLADIMIR MCCAIN updated family regarding acceptance by [facility].
--- NOTE | 2019-08-10 12:03 | OP.PCM_ITS ---
Problem List (1) Problem with dialysis access Status: Acute Qualifiers: Encounter type: initial encounter Qualified Code(s): T82.898A - Other specified complication of vascular prosthetic devices, implants and grafts, initial encounter Report of Operation Date of Procedure: 08/10/19 Pre-Operative Diagnosis: Stage V chronic renal insufficiency in need of arteriovenous access because of previous sepsis related to infected right internal jugular tunneled dialysis catheter Post-Operative Diagnosis: Same Surgery/Procedure Performed:: Left internal jugular pre-curved 23 cm palindrome double-lumen dialysis catheter placement. Reference #[id number]. Lot #[id number] Description of Surgical Findings:: Timeout and informed consent was obtained. 68-year-old female taken the operating placed supine on the table. Ancef 2 g were given intravenously. She underwent monitored anesthesia care. 10 cc of local was utilized. 1% lidocaine mixed 50-50 with 0.5% Marcaine was used as local anesthetic. The left neck chest were sterilely prepped and draped because of the previous recent infection on the right. Under ultrasound guidance local was instilled. Micropuncture needle was used to gain access to the left internal jugular vein followed by Seldinger wire advancement. Fluoroscopy demonstrated good positioning. I used an 035 angled Glidewire to further advance and then I was able to get by micropuncture sheath advanced. I could then changed out to a standard 035 J- wire. Local was instilled down upon the chest wall. The 19 cm pre-curved catheter was tunneled from the chest to the neck site. Serial dilatation was performed with fluoroscopic control. Then the sheath dilator was inserted the wire and dilator were removed the catheter was advanced through the sheath the sheath was split the catheter was positioned at the SVC atrial junction. Good positioning was felt to been achieved. It aspirated easily. It was flushed with saline and then per channel 1.5 cc of heparinized saline per channel. The neck site was closed interrupted 5-0 Vicryl subdermal stitch. This catheter was secured to the skin with interrupted 3-0 nylon. Silver impregnated dressing was applied to the exit site Telfa OpSite dressing to the neck site sponge and instrument and needle counts were reported the surgery were correct. Blood loss minimal. Specimens none. Drains none. Stat portable chest x-ray is pending. Chun Bobo M.D., F.A.C.S. Type of Anesthesia:: Local MAC Anesthesiologist: Pete Decker
--- NOTE | 2019-08-10 12:21 | CASEMGMT ---
Social Work Note Pt is likely discharging home tomorrow. SW placed a call to pt's CM Tia Bookless and left her a message that pt will likely discharge home tomorrow. Leslie Orellana IRRIGATION TEACHER, DOWEL POINTER
--- NOTE | 2019-08-10 13:41 | PN.RENAL_ITS ---
Patient Problems: Active and Suspected Problems (Last Updated 08/06/19 @ 19:15 by Moe Wise DO) Problem with dialysis access (Acute) MRSA bacteremia (Acute) Subjective: return from tunneled dialysis catheter placement. Schedule hemodialysis later today. Continue with iv antibx per ID. Denies NV, shortness of breath. Still wit h moist cough. - Physical Exam Vitals/I&O's: Vital Signs Temp Pulse Resp BP Pulse Ox 98.4 F 96 24 H 168/65 H 96 08/10/19 12:45 08/10/19 12:45 08/10/19 12:45 08/10/19 12:45 08/10/19 12:45 Oxygen Flow Rate (L/min) 2 Oxygen Delivery Method Room Air Weight: 100 kg Body Mass Index (BMI) 40.3 Intake and Output for Last 24 Hours 08/08/19 08/09/19 08/10/19 23:59 23:59 23:59 Intake Total 815 / 1535 1690 / 1690 Output Total Balance 815 / 1535 1689 / 1689 General: Alert, Oriented x3, Cooperative Lungs: Rhonchi Cardiovascular: Regular rate Abdomen: Bowel Sounds Present, Soft, Non Tender, Obese Extremities: No edema Psych/Mental Status: Normal Affect, Appropriate, Alert and oriented to time, place, person, mood and affect Microbiology Past 72 Hours 08/08/19 13:43 Blood Culture (Wb) - Right Hand Blood Culture - Preliminary 08/08/19 13:37 Blood Culture (Wb) - Left Hand Blood Culture - Preliminary 08/06/19 22:50 Mucosa - Nose Respiratory Panel (PCR) - Final 08/07/19 09:20 Sputum, Expectorated/Coughed Gram Stain - Final 08/07/19 09:20 Sputum, Expectorated/Coughed Respiratory Culture - Final 08/06/19 19:59 Blood Culture (Wb) - Venous Blood Culture - Final Meth. resistant Staph. aureus 08/06/19 19:49 Blood Culture (Wb) - Venous Bacteria Detection (PCR) - Final Staphylococcus aureus mecA Resistance Marker 08/06/19 19:49 Blood Culture (Wb) - Venous Blood Culture - Final Meth. resistant Staph. aureus 08/08/19 09:35 Stool Enteric Bacteriology - Final 08/08/19 09:35 Stool C. difficile DNA Amplification - Final 08/06/19 20:48 Urine, Catheterized Urine Culture - Final Presumptive C albicans Laboratory Results 08/09/19 16:45: POC Glucose 97 08/09/19 22:06: POC Glucose 92 08/10/19 05:51: WBC 6.3, RBC 2.77 L, Hgb 8.3 L, Hct 27.5 L, MCV 99.3 H, MCH 30.0 , MCHC 30.2 L, RDW Std Deviation 57.8 H, RDW Coeff of Liza 15.9 H, Plt Count 224, MPV 10.1 08/10/19 05:51: Sodium 139, Potassium 4.1, Chloride 110 H, Carbon Dioxide 24.0, Anion Gap 5, BUN 52 H, Creatinine 4.40 H, Estim Creat Clear Calc 9.54, Est GFR (MDRD) Af Amer 13 L, Est GFR (MDRD) Non-Af 11 L, BUN/Creatinine Ratio 11.8, Glucose 81, Calcium 8.1 L 08/10/19 06:53: POC Glucose 87 08/10/19 09:30: Random Vancomycin 20.6 H Current Medications Acetaminophen (Tylenol) 650 mg PO Q6H PRN PRN PRN Reason: Pain Score 1-10/Temp > 100.7 F Last Admin: 08/09/19 23:27 Dose: 650 mg Documented by: Albuterol Sulfate (Ventolin Aerosols) 2.5 mg INHALATION Q2H PRN PRN PRN Reason: SHORTNESS OF BREATH Albuterol/Ipratropium (Duoneb) 3 ml INHALATION Q4H.RT [facility] Last Admin: 08/10/19 11:33 Dose: Not Given Documented by: Amlodipine Besylate (Norvasc) 5 mg PO BID [facility] Last Admin: 08/09/19 21:54 Dose: 5 mg Documented by: Atorvastatin Calcium (Lipitor) 40 mg PO QHS [facility] Last Admin: 08/09/19 21:53 Dose: 40 mg Documented by: Calamine/Phenol (Calmoseptine Ointment) 1 applic TOPICAL TID [facility]; Protocol Last Admin: 08/10/19 05:40 Dose: 1 applicatio Documented by: Calcitriol (Rocaltrol) 0.25 mcg PO DAILY [facility] Last Admin: 08/09/19 10:05 Dose: 0.25 mcg Documented by: Cetirizine HCl (Zyrtec) 10 mg PO QHS [facility] Last Admin: 08/09/19 21:54 Dose: 10 mg Documented by: Citalopram Hydrobromide (Celexa) 40 mg PO DAILY [facility] Last Admin: 08/09/19 10:03 Dose: 40 mg Documented by: Clonidine 0.1 mg/ Clonidine 0. (2 mg) 0.3 mg PO Q6H PRN PRN PRN Reason: SBP > 180 Last Admin: 08/06/19 22:02 Dose: 0.3 mg Documented by: Clopidogrel Bisulfate (Plavix) 75 mg PO DAILY [facility] Last Admin: 08/09/19 10:06 Dose: 75 mg Documented by: Glucagon () 1 mg IM .X1 PRN PRN Reason: Hypoglycemia Guaifenesin/Codeine Phosphate (Robitussin Ac) 5 ml PO Q6H PRN PRN PRN Reason: coughing fits Heparin Sodium (Porcine) (Heparin Na) 5,000 unit SC Q12 [facility] Last Admin: 08/09/19 21:53 Dose: 5,000 unit Documented by: Dextrose (Dextrose 10%-Water) 250 mls @ 999 mls/hr IV .Q16M PRN; Protocol PRN Reason: HYPOGLYCEMIA Vancomycin IV Pharmacy to Dose (1 ea/ Sodium Chloride) 500 mls @ 250 mls/hr IV X1 PRN; Protocol PRN Reason: Rx to Dose Insulin Human Lispro (Humalog Kwikpen (Bkc)) 0 unit SC TIDAC [facility]; Protocol Last Admin: 08/10/19 07:05 Dose: Not Given Documented by: Meloxicam (Mobic) 15 mg PO QHS [facility] Last Admin: 08/09/19 21:53 Dose: 15 mg Documented by: Nystatin (Mycostatin Powder) 1 applic TOPICAL BID [facility]; Protocol Last Admin: 08/09/19 21:53 Dose: 1 applicatio Documented by: Ondansetron HCl (Zofran) 4 mg IV Q8H PRN PRN PRN Reason: NAUSEA/VOMITING Pantoprazole Sodium (Protonix) 40 mg PO QHS [facility] Last Admin: 08/09/19 21:54 Dose: 40 mg Documented by: Sodium Chloride () 10 - 40 ml IV UD PRN PRN Reason: SALINE FLUSH Zolpidem Tartrate (Ambien (Generic)) 5 mg PO QHS [facility] Last Admin: 08/09/19 21:52 Dose: 5 mg Documented by: Medical Necessity - Tobacco Use Smoking Status: Former smoker Tobacco Use: Non-smoker Assessment/Plan All Active Problems (Last Updated 08/06/19 @ 19:15 by Moe Wise DO) Problem with dialysis access (Acute) MRSA bacteremia (Acute) DM type 2 causing ESRD (Acute) ESRD (end stage renal disease) on dialysis (Acute) Sepsis (Acute) 1. ESRD HD MWF at [facility]. dialysis today 2. MRSA line sepsis. Vanco iv per ID 3. Dm2 stable 4. HTN stable 5. Anemia iv iron weekly on dialysis, GWENDOLYN 6. Vit D def ergo monthly
--- NOTE | 2019-08-10 13:49 | PN.ID_ITS ---
Patient Problems: Active and Suspected Problems (Last Updated 08/06/19 @ 19:15 by Moe Wise DO) Problem with dialysis access (Acute) MRSA bacteremia (Acute) Subjective: Feeling well, no fever, no issues with former line site. New permacath placed today. - Physical Exam Vitals/I&O's: Vital Signs Temp Pulse Resp BP Pulse Ox 98.4 F 88 21 H 168/65 H 96 08/10/19 12:45 08/10/19 13:46 08/10/19 13:46 08/10/19 12:45 08/10/19 12:45 Oxygen Flow Rate (L/min) 2 Oxygen Delivery Method Room Air Weight: 100 kg Body Mass Index (BMI) 40.3 Intake and Output for Last 24 Hours 08/08/19 08/09/19 08/10/19 23:59 23:59 23:59 Intake Total 815 / 1535 1690 / 1690 Output Total Balance 815 / 1535 1689 / 1689 General: Alert, Cooperative, No apparent distress Lungs: Clear to auscultation, Normal air movement Cardiovascular: Regular rate, Regular Rhythm Abdomen: Soft, Non Tender, Non-Distended Skin: No rashes Microbiology Past 72 Hours 08/08/19 13:43 Blood Culture (Wb) - Right Hand Blood Culture - Preliminary 08/08/19 13:37 Blood Culture (Wb) - Left Hand Blood Culture - Preliminary 08/06/19 22:50 Mucosa - Nose Respiratory Panel (PCR) - Final 08/07/19 09:20 Sputum, Expectorated/Coughed Gram Stain - Final 08/07/19 09:20 Sputum, Expectorated/Coughed Respiratory Culture - Final 08/06/19 19:59 Blood Culture (Wb) - Venous Blood Culture - Final Meth. resistant Staph. aureus 08/06/19 19:49 Blood Culture (Wb) - Venous Bacteria Detection (PCR) - Final Staphylococcus aureus mecA Resistance Marker 08/06/19 19:49 Blood Culture (Wb) - Venous Blood Culture - Final Meth. resistant Staph. aureus 08/08/19 09:35 Stool Enteric Bacteriology - Final 08/08/19 09:35 Stool C. difficile DNA Amplification - Final 08/06/19 20:48 Urine, Catheterized Urine Culture - Final Presumptive C albicans Laboratory Results 08/09/19 16:45: POC Glucose 97 08/09/19 22:06: POC Glucose 92 08/10/19 05:51: WBC 6.3, RBC 2.77 L, Hgb 8.3 L, Hct 27.5 L, MCV 99.3 H, MCH 30.0, MCHC 30.2 L, RDW Std Deviation 57.8 H, RDW Coeff of Liza 15.9 H, Plt Count 224, MPV 10.1 08/10/19 05:51: Sodium 139, Potassium 4.1, Chloride 110 H, Carbon Dioxide 24.0, Anion Gap 5, BUN 52 H, Creatinine 4.40 H, Estim Creat Clear Calc 9.54, Est GFR (MDRD) Af Amer 13 L, Est GFR (MDRD) Non-Af 11 L, BUN/Creatinine Ratio 11.8, Glucose 81, Calcium 8.1 L 08/10/19 06:53: POC Glucose 87 08/10/19 09:30: Random Vancomycin 20.6 H Current Medications Acetaminophen (Tylenol) 650 mg PO Q6H PRN PRN PRN Reason: Pain Score 1-10/Temp > 100.7 F Last Admin: 08/09/19 23:27 Dose: 650 mg Documented by: Albuterol Sulfate (Ventolin Aerosols) 2.5 mg INHALATION Q2H PRN PRN PRN Reason: SHORTNESS OF BREATH Albuterol/Ipratropium (Duoneb) 3 ml INHALATION Q4H.RT [facility] Last Admin: 08/10/19 11:33 Dose: Not Given Documented by: Amlodipine Besylate (Norvasc) 5 mg PO BID [facility] Last Admin: 08/09/19 21:54 Dose: 5 mg Documented by: Atorvastatin Calcium (Lipitor) 40 mg PO QHS [facility] Last Admin: 08/09/19 21:53 Dose: 40 mg Documented by: Calamine/Phenol (Calmoseptine Ointment) 1 applic TOPICAL TID [facility]; Protocol Last Admin: 08/10/19 05:40 Dose: 1 applicatio Documented by: Calcitriol (Rocaltrol) 0.25 mcg PO DAILY [facility] Last Admin: 08/09/19 10:05 Dose: 0.25 mcg Documented by: Cetirizine HCl (Zyrtec) 10 mg PO QHS [facility] Last Admin: 08/09/19 21:54 Dose: 10 mg Documented by: Citalopram Hydrobromide (Celexa) 40 mg PO DAILY [facility] Last Admin: 08/09/19 10:03 Dose: 40 mg Documented by: Clonidine 0.1 mg/ Clonidine 0. (2 mg) 0.3 mg PO Q6H PRN PRN PRN Reason: SBP > 180 Last Admin: 08/06/19 22:02 Dose: 0.3 mg Documented by: Clopidogrel Bisulfate (Plavix) 75 mg PO DAILY [facility] Last Admin: 08/09/19 10:06 Dose: 75 mg Documented by: Epoetin Solo-epbx (Retacrit) 10,000 units IV X1 ONE Stop: 08/10/19 13:46 Ergocalciferol (Vitamin D) 50,000 unit PO X1 ONE Stop: 08/10/19 13:45 Glucagon () 1 mg IM .X1 PRN PRN Reason: Hypoglycemia Guaifenesin/Codeine Phosphate (Robitussin Ac) 5 ml PO Q6H PRN PRN PRN Reason: coughing fits Heparin Sodium (Porcine) (Heparin Na) 5,000 unit SC Q12 [facility] Last Admin: 08/09/19 21:53 Dose: 5,000 unit Documented by: Dextrose (Dextrose 10%-Water) 250 mls @ 999 mls/hr IV .Q16M PRN; Protocol PRN Reason: HYPOGLYCEMIA Vancomycin IV Pharmacy to Dose (1 ea/ Sodium Chloride) 500 mls @ 250 mls/hr IV X1 PRN; Protocol PRN Reason: Rx to Dose Insulin Human Lispro (Humalog Kwikpen (Bkc)) 0 unit SC TIDAC [facility]; Protocol Last Admin: 08/10/19 07:05 Dose: Not Given Documented by: Meloxicam (Mobic) 15 mg PO QHS [facility] Last Admin: 08/09/19 21:53 Dose: 15 mg Documented by: Nystatin (Mycostatin Powder) 1 applic TOPICAL BID [facility]; Protocol Last Admin: 08/09/19 21:53 Dose: 1 applicatio Documented by: Ondansetron HCl (Zofran) 4 mg IV Q8H PRN PRN PRN Reason: NAUSEA/VOMITING Pantoprazole Sodium (Protonix) 40 mg PO QHS [facility] Last Admin: 08/09/19 21:54 Dose: 40 mg Documented by: Sodium Chloride () 10 - 40 ml IV UD PRN PRN Reason: SALINE FLUSH Zolpidem Tartrate (Ambien (Generic)) 5 mg PO QHS [facility] Last Admin: 08/09/19 21:52 Dose: 5 mg Documented by: Medical Necessity - Tobacco Use Smoking Status: Former smoker Tobacco Use: Non-smoker Route of nutrition/ use of supplements: [] Nutritional Intake: [] IV Site: [] Tena Catheter: [] - Assessment/Plan Antibiotics: [] Assessment/Plan: [] Active and Suspected Problems (Last Updated 08/06/19 @ 19:15 by Moe Wise DO) Problem with dialysis access (Acute) Sepsis (Acute) MRSA bacteremia related to dialysis catheter - s/p line removal and abscess drainage 08/07/[address] Bobo. Repeat bcx today to document clearance. TTE neg. Bcx neg at almost 48 hours now. New permacath placed today. Cont vanc. Cdiff was neg. Ok for d/c on vanc 750mg dosed with HD qmwf, stop date 09/05/19. Will follow, d/w Dr. Schwartz and rn field case manager. ID followup prn. Wrote rx for abx.
[2019-08-10 14:00] LABS: Bedside Glucose 79 mg/dL (70-110)
--- NOTE | 2019-08-10 15:07 | PCM.PN.HOSP ---
<Franki Patel - Last Filed: 08/10/19 15:07> Patient Problems: Active and Suspected Problems (Last Updated 08/06/19 @ 19:15 by Moe Wise DO) Problem with dialysis access (Acute) MRSA bacteremia (Acute) Reason for Visit: No complaints. Went to [place] this AM for dialysis access. Dialysis this afternoon. Plan for home tomorrow if no changes. Vitals/I&O's: Vital Signs Temp Pulse Resp BP Pulse Ox 97.5 F L 88 21 H 149/82 H 93 08/10/19 13:30 08/10/19 13:46 08/10/19 13:46 08/10/19 13:30 08/10/19 13:30 Oxygen Flow Rate (L/min) 2 Oxygen Delivery Method Room Air Weight: 220 lb 7.396 oz Body Mass Index (BMI) 40.3 Intake and Output for Last 24 Hours 08/08/19 08/09/19 08/10/19 23:59 23:59 23:59 Intake Total 815 / 1535 1690 / 1690 270.5 / 270.5 Output Total Balance 815 / 1535 1689 / 1689 270.5 / 270.5 General: Alert, Oriented x3, Cooperative HEENT: Atraumatic, PERRLA, EOMI, Normocephalic Neck: Supple, No JVD, Negative Carotid Bruits Lungs: Clear to auscultation, Normal air movement Cardiovascular: Regular rate, No murmurs Abdomen: Bowel Sounds Present, Soft, Non Tender, Obese Extremities: No edema, Capillary Refill Less than 3 Seconds Skin: No rashes, No breakdown Musculoskeletal: No Tenderness to Palpation of Joints or Extremities Neurological: Cranial nerves II-XII grossly intact Psych/Mental Status: Normal Affect, Appropriate, Alert and oriented to time, place, person, mood and affect Microbiology Past 72 Hours 08/10/19 13:50 Mucosa - Throat Group A Streptococcus Rapid Screen - Preliminary 08/08/19 13:43 Blood Culture (Wb) - Right Hand Blood Culture - Preliminary 08/08/19 13:37 Blood Culture (Wb) - Left Hand Blood Culture - Preliminary 08/06/19 22:50 Mucosa - Nose Respiratory Panel (PCR) - Final 08/07/19 09:20 Sputum, Expectorated/Coughed Gram Stain - Final 08/07/19 09:20 Sputum, Expectorated/Coughed Respiratory Culture - Final 08/06/19 19:59 Blood Culture (Wb) - Venous Blood Culture - Final Meth. resistant Staph. aureus 08/06/19 19:49 Blood Culture (Wb) - Venous Bacteria Detection (PCR) - Final Staphylococcus aureus mecA Resistance Marker 08/06/19 19:49 Blood Culture (Wb) - Venous Blood Culture - Final Meth. resistant Staph. aureus 08/08/19 09:35 Stool Enteric Bacteriology - Final 08/08/19 09:35 Stool C. difficile DNA Amplification - Final 08/06/19 20:48 Urine, Catheterized Urine Culture - Final Presumptive C albicans Laboratory Results 08/09/19 16:45: POC Glucose 97 08/09/19 22:06: POC Glucose 92 08/10/19 05:51: WBC 6.3, RBC 2.77 L, Hgb 8.3 L, Hct 27.5 L, MCV 99.3 H, MCH 30.0, MCHC 30.2 L, RDW Std Deviation 57.8 H, RDW Coeff of Liza 15.9 H, Plt Count 224, MPV 10.1 08/10/19 05:51: Sodium 139, Potassium 4.1, Chloride 110 H, Carbon Dioxide 24.0, Anion Gap 5, BUN 52 H, Creatinine 4.40 H, Estim Creat Clear Calc 9.54, Est GFR (MDRD) Af Amer 13 L, Est GFR (MDRD) Non-Af 11 L, BUN/Creatinine Ratio 11.8, Glucose 81, Calcium 8.1 L 08/10/19 06:53: POC Glucose 87 08/10/19 09:30: Random Vancomycin 20.6 H 08/10/19 13:48: POC Glucose 79 Current Medications Acetaminophen (Tylenol) 650 mg PO Q6H PRN PRN PRN Reason: Pain Score 1-10/Temp > 100.7 F Last Admin: 08/09/19 23:27 Dose: 650 mg Documented by: Albuterol Sulfate (Ventolin Aerosols) 2.5 mg INHALATION Q2H PRN PRN PRN Reason: SHORTNESS OF BREATH Albuterol/Ipratropium (Duoneb) 3 ml INHALATION Q4H.RT MARTHA Last Admin: 08/10/19 11:33 Dose: Not Given Documented by: Amlodipine Besylate (Norvasc) 5 mg PO BID [facility] Last Admin: 08/10/19 14:56 Dose: Not Given Documented by: Atorvastatin Calcium (Lipitor) 40 mg PO QHS [facility] Last Admin: 08/09/19 21:53 Dose: 40 mg Documented by: Calamine/Phenol (Calmoseptine Ointment) 1 applic TOPICAL TID [facility]; Protocol Last Admin: 08/10/19 14:57 Dose: Not Given Documented by: Calcitriol (Rocaltrol) 0.25 mcg PO DAILY [facility] Last Admin: 08/09/19 10:05 Dose: 0.25 mcg Documented by: Cetirizine HCl (Zyrtec) 10 mg PO QHS [facility] Last Admin: 08/09/19 21:54 Dose: 10 mg Documented by: Citalopram Hydrobromide (Celexa) 40 mg PO DAILY [facility] Last Admin: 08/09/19 10:03 Dose: 40 mg Documented by: Clonidine 0.1 mg/ Clonidine 0. (2 mg) 0.3 mg PO Q6H PRN PRN PRN Reason: SBP > 180 Last Admin: 08/06/19 22:02 Dose: 0.3 mg Documented by: Clopidogrel Bisulfate (Plavix) 75 mg PO DAILY [facility] Last Admin: 08/09/19 10:06 Dose: 75 mg Documented by: Glucagon () 1 mg IM .X1 PRN PRN Reason: Hypoglycemia Guaifenesin/Codeine Phosphate (Robitussin Ac) 5 ml PO Q6H PRN PRN PRN Reason: coughing fits Heparin Sodium (Porcine) (Heparin Na) 5,000 unit SC Q12 [facility] Last Admin: 08/10/19 14:56 Dose: Not Given Documented by: Dextrose (Dextrose 10%-Water) 250 mls @ 999 mls/hr IV .Q16M PRN; Protocol PRN Reason: HYPOGLYCEMIA Vancomycin IV Pharmacy to Dose (1 ea/ Sodium Chloride) 500 mls @ 250 mls/hr IV X1 PRN; Protocol PRN Reason: Rx to Dose Insulin Human Lispro (Humalog Kwikpen (Bkc)) 0 unit SC TIDAC [facility]; Protocol Last Admin: 08/10/19 13:49 Dose: Not Given Documented by: Meloxicam (Mobic) 15 mg PO QHS [facility] Last Admin: 08/09/19 21:53 Dose: 15 mg Documented by: Nystatin (Mycostatin Powder) 1 applic TOPICAL BID [facility]; Protocol Last Admin: 08/10/19 14:56 Dose: Not Given Documented by: Ondansetron HCl (Zofran) 4 mg IV Q8H PRN PRN PRN Reason: NAUSEA/VOMITING Pantoprazole Sodium (Protonix) 40 mg PO QHS [facility] Last Admin: 08/09/19 21:54 Dose: 40 mg Documented by: Sodium Chloride () 10 - 40 ml IV UD PRN PRN Reason: SALINE FLUSH Zolpidem Tartrate (Ambien (Generic)) 5 mg PO QHS [facility] Last Admin: 08/09/19 21:52 Dose: 5 mg Documented by: STROKE Vital Signs/Narrative: Vital Signs Temp Pulse Resp BP Pulse Ox 08/10/19 13:46 88 21 H 08/10/19 13:30 97.5 F L 76 18 149/82 H 93 08/10/19 12:45 98.4 F 96 24 H 168/65 H 96 08/10/19 12:30 102 H 20 H 149/73 H 92 08/10/19 12:25 101 H 20 H 149/72 H 20 08/10/19 12:20 102 H 20 H 151/68 H 92 08/10/19 12:15 105 H 24 H 155/73 H 92 08/10/19 12:13 99.5 F H 94 28 H 164/83 H 92 Medical Necessity - Tobacco Use Smoking Status: Former smoker Tobacco Use: Non-smoker Assessment/Plan All Active Problems (Last Updated 08/06/19 @ 19:15 by Moe Wise DO) Problem with dialysis access (Acute) MRSA bacteremia (Acute) DM type 2 causing ESRD (Acute) ESRD (end stage renal disease) on dialysis (Acute) Sepsis (Acute) 1. Sepsis/Bacteremia - related to dialysis cath. MRSA. ID/Nephro/Vasc surg following. Repeat blood cx NTD. Plan for IV abx per Dr. Keller - dose with dialysis. Dialysis cath placed this am, dialysis this afternoon. 2. ESRD - dialysis per Dr. Schwartz. 3. HTN - stable 4. T2DM, obesity - diet controlled 5. Debility -PTOT. 6. HLD - on statin 7. GERD - on ppi 8. Chronic anemia, probably due to ESRD - stable 9. Dep/anx - celexa, ambien DVT ppx: heparin DC planning: home with o/p IV abx with dialysis. This patient was seen by Franki Patel PA-C under the supervision of Doctor Meenu. <Pollo Corrigan F - Last Filed: 08/10/19 17:21> Vitals/I&O's: Vital Signs Temp Pulse Resp BP Pulse Ox 97.5 F L 88 21 H 149/82 H 93 08/10/19 13:30 08/10/19 13:46 08/10/19 13:46 08/10/19 13:30 08/10/19 13:30 Oxygen Flow Rate (L/min) 2 Oxygen Delivery Method Room Air Weight: 220 lb 7.396 oz Body Mass Index (BMI) 40.3 Intake and Output for Last 24 Hours 08/08/19 08/09/19 08/10/19 23:59 23:59 23:59 Intake Total 815 / 1535 1690 / 1690 270.5 / 270.5 Output Total Balance 815 / 1535 1689 / 1689 270.5 / 270.5 Microbiology Past 72 Hours 08/10/19 13:50 Mucosa - Throat Group A Streptococcus Rapid Screen - Preliminary 08/08/19 13:43 Blood Culture (Wb) - Right Hand Blood Culture - Preliminary 08/08/19 13:37 Blood Culture (Wb) - Left Hand Blood Culture - Preliminary 08/06/19 22:50 Mucosa - Nose Respiratory Panel (PCR) - Final 08/07/19 09:20 Sputum, Expectorated/Coughed Gram Stain - Final 08/07/19 09:20 Sputum, Expectorated/Coughed Respiratory Culture - Final 08/06/19 19:59 Blood Culture (Wb) - Venous Blood Culture - Final Meth. resistant Staph. aureus 08/06/19 19:49 Blood Culture (Wb) - Venous Bacteria Detection (PCR) - Final Staphylococcus aureus mecA Resistance Marker 08/06/19 19:49 Blood Culture (Wb) - Venous Blood Culture - Final Meth. resistant Staph. aureus 08/08/19 09:35 Stool Enteric Bacteriology - Final 08/08/19 09:35 Stool C. difficile DNA Amplification - Final 08/06/19 20:48 Urine, Catheterized Urine Culture - Final Presumptive C albicans Laboratory Results 08/09/19 22:06: POC Glucose 92 08/10/19 05:51: WBC 6.3, RBC 2.77 L, Hgb 8.3 L, Hct 27.5 L, MCV 99.3 H, MCH 30.0, MCHC 30.2 L, RDW Std Deviation 57.8 H, RDW Coeff of Liza 15.9 H, Plt Count 224, MPV 10.1 08/10/19 05:51: Sodium 139, Potassium 4.1, Chloride 110 H, Carbon Dioxide 24.0, Anion Gap 5, BUN 52 H, Creatinine 4.40 H, Estim Creat Clear Calc 9.54, Est GFR (MDRD) Af Amer 13 L, Est GFR (MDRD) Non-Af 11 L, BUN/Creatinine Ratio 11.8, Glucose 81, Calcium 8.1 L 08/10/19 06:53: POC Glucose 87 08/10/19 09:30: Random Vancomycin 20.6 H 08/10/19 13:48: POC Glucose 79 Current Medications Acetaminophen (Tylenol) 650 mg PO Q6H PRN PRN PRN Reason: Pain Score 1-10/Temp > 100.7 F Last Admin: 08/10/19 15:41 Dose: 650 mg Documented by: Albuterol Sulfate (Ventolin Aerosols) 2.5 mg INHALATION Q2H PRN PRN PRN Reason: SHORTNESS OF BREATH Albuterol/Ipratropium (Duoneb) 3 ml INHALATION Q4H.RT [facility] Last Admin: 08/10/19 11:33 Dose: Not Given Documented by: Amlodipine Besylate (Norvasc) 5 mg PO BID [facility] Last Admin: 08/10/19 14:56 Dose: Not Given Documented by: Atorvastatin Calcium (Lipitor) 40 mg PO QHS [facility] Last Admin: 08/09/19 21:53 Dose: 40 mg Documented by: Calamine/Phenol (Calmoseptine Ointment) 1 applic TOPICAL TID [facility]; Protocol Last Admin: 08/10/19 14:57 Dose: Not Given Documented by: Calcitriol (Rocaltrol) 0.25 mcg PO DAILY [facility] Last Admin: 08/09/19 10:05 Dose: 0.25 mcg Documented by: Cetirizine HCl (Zyrtec) 10 mg PO QHS [facility] Last Admin: 08/09/19 21:54 Dose: 10 mg Documented by: Citalopram Hydrobromide (Celexa) 40 mg PO DAILY [facility] Last Admin: 08/09/19 10:03 Dose: 40 mg Documented by: Clonidine 0.1 mg/ Clonidine 0. (2 mg) 0.3 mg PO Q6H PRN PRN PRN Reason: SBP > 180 Last Admin: 08/06/19 22:02 Dose: 0.3 mg Documented by: Clopidogrel Bisulfate (Plavix) 75 mg PO DAILY [facility] Last Admin: 08/10/19 15:40 Dose: 75 mg Documented by: Glucagon () 1 mg IM .X1 PRN PRN Reason: Hypoglycemia Guaifenesin/Codeine Phosphate (Robitussin Ac) 5 ml PO Q6H PRN PRN PRN Reason: coughing fits Heparin Sodium (Porcine) (Heparin Na) 5,000 unit SC Q12 [facility] Last Admin: 08/10/19 14:56 Dose: Not Given Documented by: Dextrose (Dextrose 10%-Water) 250 mls @ 999 mls/hr IV .Q16M PRN; Protocol PRN Reason: HYPOGLYCEMIA Vancomycin IV Pharmacy to Dose (1 ea/ Sodium Chloride) 500 mls @ 250 mls/hr IV X1 PRN; Protocol PRN Reason: Rx to Dose Insulin Human Lispro (Humalog Kwikpen (Bkc)) 0 unit SC TIDAC [facility]; Protocol Last Admin: 08/10/19 13:49 Dose: Not Given Documented by: Meloxicam (Mobic) 15 mg PO QHS [facility] Last Admin: 08/09/19 21:53 Dose: 15 mg Documented by: Nystatin (Mycostatin Powder) 1 applic TOPICAL BID [facility]; Protocol Last Admin: 08/10/19 14:56 Dose: Not Given Documented by: Ondansetron HCl (Zofran) 4 mg IV Q8H PRN PRN PRN Reason: NAUSEA/VOMITING Pantoprazole Sodium (Protonix) 40 mg PO QHS [facility] Last Admin: 08/09/19 21:54 Dose: 40 mg Documented by: Sodium Chloride () 10 - 40 ml IV UD PRN PRN Reason: SALINE FLUSH Zolpidem Tartrate (Ambien (Generic)) 5 mg PO QHS [facility] Last Admin: 08/09/19 21:52 Dose: 5 mg Documented by: STROKE Vital Signs/Narrative: Vital Signs Temp Pulse Resp BP Pulse Ox 08/10/19 13:46 88 21 H 08/10/19 13:30 97.5 F L 76 18 149/82 H 93 Code Visit Addendum: Dr. Corrigan I personally examined the patient and reviewed the chart. I agree with the above. 68-year-old female who presented to an outside hospital with coughing followed by emesis as well as a chest x-ray demonstrated possible consolidation of the left thorax which may have been chronic. She was found to have an infected dialysis catheter which was removed at bedside however she did come back positive for MRSA bacteremia was started on vancomycin. She had bacterial clearance on her second set of blood cultures and therefore was taken today for placement of another tunneled dialysis catheter and hopefully to start dialysis this evening. If her cultures remain negative and she does well with dialysis can likely plan for discharge tomorrow on vancomycin for several weeks. She did have a TTE during her hospitalization which was negative for any vegetations. Inpatient E&M: 32942 Subs Hosp L2
[2019-08-10] MEDS: Clopidogrel Bisulfate 75 MG Tablet PO (15:40)
[2019-08-10] MEDS: Acetaminophen 325 MG Tablet 650 MG PO ×2 (15:41→21:58)
--- NOTE | 2019-08-10 18:47 | DIALYSIS ---
Hemodialysis completed using new LIJ tunnelled catheter. Blood flow was suboptimal so patient was ran longer than her normal time of 3 hours. She refused to stay on for 4 hours but was agreeable to 3.5 hours. Fluid removed was 2.2 liters. Next dialysis will be Tuesday in outpatient center. See flow sheet for details. Ending BP was 147/76. 116, 98.4, 16
[2019-08-10] MEDS: Epoetin Alfa epbx 10,000 UNITS/ML 10000 UNIT IV (19:53)
[2019-08-10] MEDS: Zolpidem Tartrate 5 MG Tablet PO (21:56)
[2019-08-10] MEDS: Pantoprazole Sodium 40 MG Tablet PO (21:57)
[2019-08-10] MEDS: Atorvastatin Calcium 40 MG Tablet PO (21:57)
[2019-08-10] MEDS: Meloxicam 15 MG Tablet PO (21:57)
[2019-08-10] MEDS: Nystatin Powder 15gm Bottle 1 APPLIC TOPICAL (21:57)
[2019-08-10] MEDS: amLODIPine 5 MG Tablet PO (21:57)
[2019-08-10] MEDS: Heparin Injection (Vial) 5,000 UNIT/ML VIAL 5000 UNIT SC (21:58)
[2019-08-10] MEDS: CETIRIZINE HCL 10 MG TABLET PO (21:58)
[2019-08-10 22:05] LABS: Bedside Glucose 97 mg/dL (70-110)
[2019-08-11 03:00] VITALS: BP 128/79; PULSE 89; RESP 18; TEMP 36.8; O2SAT 93
--- NOTE | 2019-08-11 06:20 | PCM.PN.BLA ---
Progress Note Catheter site left chest clean Dialysis accomplished yesterday Pending pts progress she can reschedule future office appt to discuss additional dialysis access possibilities Will sign off STROKE Vital Signs/Narrative: Vital Signs Temp Pulse Resp BP Pulse Ox 08/11/19 03:00 98.2 F 89 18 128/79 H 93
[2019-08-11 06:40] LABS: Bedside Glucose 82 mg/dL (70-110)
[2019-08-11] MEDS: Menthol/Lanolin/Calamine/Znox 113 GM Tube 1 APPLIC TOPICAL (06:48)
[2019-08-11 07:33] LABS: Absolute Lymphocyte Count 2.16 X10^3/uL (0.83-4.51); Absolute Neutrophil Count 2.7 X10^3/uL (2.0-7.7); Basophil# 0.03 X10^3/uL; Basophil% 0.5 % (0-1); Eosinophil# 0.23 X10^3/uL; Hematocrit 30.1 % (37-47); Lymphocyte # 2.16 X10^3/ul (4.0); Lymphocyte % 37.5 % (19-41); Mean Corp Hgb Conc 29.9 g/dL (32-36); Mean Corpuscular Hgb 30.3 pg (27.0-32.0); Mean Corpuscular Volume 101.3 fL (81-99); Mean Platelet Vol. 10.1 fl (6.2-12.0); Monocyte# 0.62 X10^3/uL; Monocyte% 10.8 % (0-10); NRBC Flagged by Analyzer 0 % (0-5); Neutrophil # 2.67 X10^3/uL (2.7-7.7); Neutrophil % 46.3 % (47-70); Platelet Count 234 K/mm3 (150-450); RBC Distribution Width CV 15.6 % (11.6-14.6); RBC Distribution Width SD 58.3 fl (35.1-43.9); Red Blood Count 2.97 M/mm3 (4.2-5.4); White Blood Count 5.8 K/mm3 (4.4-11.0)
[2019-08-11 07:56] LABS: Anion Gap 5 (5-15); BUN 25 mg/dL (7-18); BUN/Creat Ratio 9.7 RATIO (10-20); Calcium,Total 8.1 mg/dL (8.5-10.1); Chloride 105 mmol/L (98-107); Creatinine, Serum 2.57 mg/dL (0.55-1.02); EST Glomerular Filtration Rate 20 mL/min (>60); Est Glom Filt Rate - Afr Amer 24 mL/min (>60); Estimated Creatinine Clearance 16.34 ml/min; Glucose 72 mg/dL (74-106); Potassium 3.7 mmol/L (3.5-5.1); Sodium Level 138 mmol/L (136-145)
[2019-08-11 08:01] VITALS: PULSE 100; RESP 20; O2SAT 91
[2019-08-11] MEDS: Ipratropium/Albuterol Sulfate 3 ML AMPUL.NEB INHALATION ×2 (08:01→11:41)
--- NOTE | 2019-08-11 08:10 | CPS ---
Lab at bedside to draw blood, patient encouraged to work on PEP therapy afterwards.
--- NOTE | 2019-08-11 09:21 | PCM.PN.BLA ---
Progress Note HD yesterday wtih 2L fluid removal. Remains afebrile random vanco level from this morning 16. Last dose received on 08/08/19 Redose vanco 750mg iv x1 today prior to discharge. Continue with vanco as outpt at dialysis center until 09/05/19 per ID rec. ok to dc from renal standpoint after iv vanco
[2019-08-11 09:24] LABS: Vancomycin, Random Level 16.2 ug/mL (0.0-15.0)
--- NOTE | 2019-08-11 10:24 | CM.UR ---
I was alerted by VLADIMIR Daniels that patient's daughter states that she cannot come and get patient. States that she usually comes home via ambulance. Patient is wheelchair bound and does not have medical necessity for a cot transport. Explained to VLADIMIR Daniels that she will not meet for ambulance, but for ambulette. Also explained often run into road blocks for ambulettes on weekends. Called these transportation companies: [facility] [employer] Most do not have resources available or do not offer ambulette on the weekend. Will discuss with SW. Alerted VLADIMIR Daniels.
[2019-08-11 10:37] VITALS: BP 131/69; PULSE 109; RESP 16; TEMP 37; O2SAT 92
[2019-08-11] MEDS: Heparin Injection (Vial) 5,000 UNIT/ML VIAL 5000 UNIT SC (10:41)
[2019-08-11] MEDS: Clopidogrel Bisulfate 75 MG Tablet PO (10:41)
[2019-08-11] MEDS: Citalopram 40 MG TABLET PO (10:41)
[2019-08-11] MEDS: amLODIPine 5 MG Tablet PO (10:41)
[2019-08-11] MEDS: Calcitriol 0.25 MCG Capsule PO (10:41)
[2019-08-11] MEDS: Nystatin Powder 15gm Bottle 1 APPLIC TOPICAL (10:45)
[2019-08-11] MEDS: Acetaminophen 325 MG Tablet 650 MG PO (11:29)
[2019-08-11 11:41] VITALS: PULSE 85; RESP 18; O2SAT 93
[2019-08-11 11:41] LABS: Bedside Glucose 136 mg/dL (70-110)
--- NOTE | 2019-08-11 11:44 | DCINST_ITS ---
- Discharge Diagnoses Current Active Problems: Current Active and Chronic Problems (Last Updated 08/06/19 @ 19:15 by Moe Wise DO) Problem with dialysis access (Acute) MRSA bacteremia (Acute) You will use the following diet at home:: Renal (restricted protein/sodium) Your food should be the consistency of: Regular Your liquids should be the consistency of: Regular/Thin Discharge Activity: Return to Normal Activity Allergies/Adverse Reactions: Allergies loratadine Allergy (Verified 08/06/19 20:11) Unknown tape Allergy (Uncoded 08/06/19 20:11) Rash Medications to take at Discharge Ambien 10 mg QHS 08/06/19 Amlodipine Besylate 5 mg BID 08/06/19 Atorvastatin Calcium 40 mg DAILY 08/06/19 Calcitriol 0.25 mg DAILY 08/06/19 Cetirizine HCl 10 mg QHS 08/06/19 Citalopram [Celexa] 40 mg PO DAILY 08/06/19 Clopidogrel Bisulfate [Clopidogrel] 75 mg DAILY 08/06/19 Meloxicam 15 mg QHS 08/06/19 Omeprazole 40 mg QHS 08/06/19 Vancomycin/0.9 % Sod Chloride [Vanco 750 mg/150 ml-0.9% NaCl] 750 mg IV UD #10 [email or web address] 08/10/19 Acetaminophen [Tylenol Tablet] 650 mg PO Q6H PRN PRN tab 08/11/19 Menthol/Lanolin/Calamine/Znox [Calmoseptine Ointment] 1 applic TOPICAL TID tube 08/11/19 Nystatin Powder [Mycostatin Powder] 1 applic TOPICAL BID bottle 08/11/19 The following prescriptions were given: Vancomycin/0.9 % Sod Chloride [Vanco 750 mg/150 ml-0.9% NaCl] 750 mg IV UD #10 [email or web address] Prescription Printed Primary Care Physician: Citlali Nguyen NP-C [Primary Care Provider] - Please follow up with your Primary Care Physician in: 1-2 weeks Test Results: Test results from this visit will be discussed in further detail at your follow- up appointment, if applicable. Please Follow Up With: Barb Schwartz DO When: as directed Please Follow Up With: Chun Bobo MD When: as directed Please Follow Up With: Chun Bang MD When: call for appointment Proposed Discharge Date: 08/11/19
--- NOTE | 2019-08-11 13:24 | DS.PCM_ITS ---
<Franki Patel - Last Filed: 08/11/19 13:24> Discharge Date and Diagnosis Date of Admission: 08/06/19 Date of Discharge: 08/11/19 - Primary Discharge Diagnosis Active and Suspected Problems (Last Updated 08/06/19 @ 19:15 by Moe Wise DO) MRSA bacteremia (Acute) 2/2 infected dialysis cath ESRD HTN T2DM with morbid obesity Debility HLD GERD Anemia of chronic dz Dep/anx Hospital Course and Treatment Imaging Results: IMAGING: RAD/Chest PA and Lateral IMPRESSION: Pleural fluid and/or atelectasis in the left base. No pulmonary edema or congestive heart failure. Osteopenia. 2D echo: Interpretation Summary The estimated ejection fraction is 60 %. Normal diastology for age. The study was technically difficult. Diluted definity 6.0ml given slow IV push to enhance endocardial definition. Pulmonary artery systolic pressure is 50 mmHg. Mild tricuspid valve insufficiency. The study was technically difficult. RAD/CXR for Line Placement IMPRESSION: The tip of the left-sided double lumen catheter is in the right atrium. Consults: Efren - nephrology [place] - AKILAH Bobo - [facility] surg Operations: - - dialysis cath placement Procedures: 2-D Echocardiogram, Dialysis Summary of Care Provided: Hospital course: The patient is a 68 year old F past medical history notable for ESRD on hemodialysis with Dr. Schwartz, who presented to the emergency room with complaints of coughing and vomiting. She was sent from [facility] ER. She had an opacified left thorax on imaging and appeared to be septic so she was admitted for sepsis and started on Zosyn for possible healthcare acquired pneumonia. Vascular surgery was consulted and noted that her right chest tunneled dialysis catheter appeared to be grossly infected. Her blood cultures showed MRSA. Infectious disease was consulted and she was treated with vanc omycin and cefazolin. Her axis was pulled, later she underwent new temporary dialysis catheter placement on the left side. An echocardiogram was obtained which no evidence of vegetation. She was transitioned to vancomycin only. Her blood cultures cleared the MRSA. She was discharged home with home health care and will need to continue with IV vancomycin dosed with dialysis as instructed per infectious disease, she will need to continue nephro care per Dr. Schwartz, she will need to follow-up with Dr. Cebul for further vascular surgery, and follow- up with infectious disease as needed. This patient was seen by Franki Patel PA-C under the supervision of Doctor Meenu. [] - Physical Exam Vitals/I&O's: Vital Signs Temp Pulse Resp BP Pulse Ox 98.6 F 109 H 16 131/69 H 92 08/11/19 10:37 08/11/19 10:37 08/11/19 10:37 08/11/19 10:37 08/11/19 10:37 Oxygen Flow Rate (L/min) 2 Oxygen Delivery Method Room Air Weight: 220 lb 7.396 oz Body Mass Index (BMI) 40.3 Intake and Output for Last 24 Hours 08/09/19 08/10/19 08/11/19 23:59 23:59 23:59 Intake Total 1690 / 1690 270.5 / 490.5 585 / 585 Output Total 2200 / 2200 0 / 0 Balance 1689 / 1689 -1929.5 / -1709.5 585 / 585 General: Alert, Oriented x3, Cooperative HEENT: Atraumatic, PERRLA, EOMI, Normocephalic Neck: Supple, No JVD, Negative Carotid Bruits Lungs: Clear to auscultation, Normal air movement Cardiovascular: Regular rate, No murmurs Abdomen: Bowel Sounds Present, Soft, Non Tender, Obese Extremities: No edema, Capillary Refill Less than 3 Seconds Skin: No rashes, No breakdown Musculoskeletal: No Tenderness to Palpation of Joints or Extremities Neurological: Cranial nerves II-XII grossly intact Psych/Mental Status: Normal Affect, Appropriate, Alert and oriented to time, place, person, mood and affect Microbiology Past 72 Hours 08/09/19 11:15 Blood Culture (Wb) - Left Hand Blood Culture - Preliminary No growth in 48 hours. 08/10/19 13:50 Mucosa - Throat Group A Streptococcus Rapid Screen - Preliminary 08/08/19 13:43 Blood Culture (Wb) - Right Hand Blood Culture - Preliminary 08/08/19 13:37 Blood Culture (Wb) - Left Hand Blood Culture - Preliminary 08/06/19 22:50 Mucosa - Nose Respiratory Panel (PCR) - Final 08/07/19 09:20 Sputum, Expectorated/Coughed Gram Stain - Final 08/07/19 09:20 Sputum, Expectorated/Coughed Respiratory Culture - Final 08/06/19 19:59 Blood Culture (Wb) - Venous Blood Culture - Final Meth. resistant Staph. aureus 08/06/19 19:49 Blood Culture (Wb) - Venous Bacteria Detection (PCR) - Final Staphylococcus aureus mecA Resistance Marker 08/06/19 19:49 Blood Culture (Wb) - Venous Blood Culture - Final Meth. resistant Staph. aureus 08/08/19 09:35 Stool Enteric Bacteriology - Final 08/08/19 09:35 Stool C. difficile DNA Amplification - Final 08/06/19 20:48 Urine, Catheterized Urine Culture - Final Presumptive C albicans Laboratory Results 08/10/19 13:48: POC Glucose 79 08/10/19 21:53: POC Glucose 97 08/11/19 06:25: WBC 5.8, RBC 2.97 L, Hgb 9.0 L, Hct 30.1 L, MCV 101.3 H, MCH 30.3, MCHC 29.9 L, RDW Std Deviation 58.3 H, RDW Coeff of Liza 15.6 H, Plt Count 234, MPV 10.1, Immature Gran % (Auto) 0.900, Neut % (Auto) 46.3 L, Lymph % (Auto) 37.5, Dauphin % (Auto) 10.8 H, Eos % (Auto) 4.0, Baso % (Auto) 0.5, Absolute Neuts (auto) 2.7, Absolute Lymphs (auto) 2.16, Nucleated RBC % 0 08/11/19 06:25: Sodium 138, Potassium 3.7, Chloride 105, Carbon Dioxide 28.0, Anion Gap 5, BUN 25 H, Creatinine 2.57 H, Estim Creat Clear Calc 16.34, Est GFR (MDRD) Af Amer 24 L, Est GFR (MDRD) Non-Af 20 L, BUN/Creatinine Ratio 9.7 L, Glucose 72 L, Calcium 8.1 L 08/11/19 06:34: POC Glucose 82 08/11/19 08:10: Random Vancomycin 16.2 H 08/11/19 11:28: POC Glucose 136 H Current Medications Acetaminophen (Tylenol) 650 mg PO Q6H PRN PRN PRN Reason: Pain Score 1-10/Temp > 100.7 F Last Admin: 08/11/19 11:29 Dose: 650 mg Documented by: Albuterol Sulfate (Ventolin Aerosols) 2.5 mg INHALATION Q2H PRN PRN PRN Reason: SHORTNESS OF BREATH Albuterol/Ipratropium (Duoneb) 3 ml INHALATION Q4H.RT [facility] Last Admin: 08/11/19 11:41 Dose: 3 ml Documented by: Amlodipine Besylate (Norvasc) 5 mg PO BID [facility] Last Admin: 08/11/19 10:41 Dose: 5 mg Documented by: Atorvastatin Calcium (Lipitor) 40 mg PO QHS [facility] Last Admin: 08/10/19 21:57 Dose: 40 mg Documented by: Calamine/Phenol (Calmoseptine Ointment) 1 applic TOPICAL TID [facility]; Protocol Last Admin: 08/11/19 06:48 Dose: 1 applicatio Documented by: Calcitriol (Rocaltrol) 0.25 mcg PO DAILY [facility] Last Admin: 08/11/19 10:41 Dose: 0.25 mcg Documented by: Cetirizine HCl (Zyrtec) 10 mg PO QHS [facility] Last Admin: 08/10/19 21:58 Dose: 10 mg Documented by: Citalopram Hydrobromide (Celexa) 40 mg PO DAILY [facility] Last Admin: 08/11/19 10:41 Dose: 40 mg Documented by: Clonidine 0.1 mg/ Clonidine 0. (2 mg) 0.3 mg PO Q6H PRN PRN PRN Reason: SBP > 180 Last Admin: 08/06/19 22:02 Dose: 0.3 mg Documented by: Clopidogrel Bisulfate (Plavix) 75 mg PO DAILY [facility] Last Admin: 08/11/19 10:41 Dose: 75 mg Documented by: Glucagon () 1 mg IM .X1 PRN PRN Reason: Hypoglycemia Guaifenesin/Codeine Phosphate (Robitussin Ac) 5 ml PO Q6H PRN PRN PRN Reason: coughing fits Heparin Sodium (Porcine) (Heparin Na) 5,000 unit SC Q12 [facility] Last Admin: 08/11/19 10:41 Dose: 5,000 unit Documented by: Dextrose (Dextrose 10%-Water) 250 mls @ 999 mls/hr IV .Q16M PRN; Protocol PRN Reason: HYPOGLYCEMIA Vancomycin IV Pharmacy to Dose (1 ea/ Sodium Chloride) 500 mls @ 250 mls/hr IV X1 PRN; Protocol PRN Reason: Rx to Dose Insulin Human Lispro (Humalog Kwikpen (Bkc)) 0 unit SC TIDAC [facility]; Protocol Last Admin: 08/11/19 11:29 Dose: Not Given Documented by: Meloxicam (Mobic) 15 mg PO QHS [facility] Last Admin: 08/10/19 21:57 Dose: 15 mg Documented by: Nystatin (Mycostatin Powder) 1 applic TOPICAL BID [facility]; Protocol Last Admin: 08/11/19 10:45 Dose: 1 applicatio Documented by: Ondansetron HCl (Zofran) 4 mg IV Q8H PRN PRN PRN Reason: NAUSEA/VOMITING Pantoprazole Sodium (Protonix) 40 mg PO QHS [facility] Last Admin: 08/10/19 21:57 Dose: 40 mg Documented by: Sodium Chloride () 10 - 40 ml IV UD PRN PRN Reason: SALINE FLUSH Zolpidem Tartrate (Ambien (Generic)) 5 mg PO QHS [facility] Last Admin: 08/10/19 21:56 Dose: 5 mg Documented by: Discharge Diet: Renal Diet Discharge Activity: Return to Normal Activity Home Medications: Medications to take at Discharge Ambien 10 mg QHS 08/06/19 Amlodipine Besylate 5 mg BID 08/06/19 Atorvastatin Calcium 40 mg DAILY 08/06/19 Calcitriol 0.25 mg DAILY 08/06/19 Cetirizine HCl 10 mg QHS 08/06/19 Citalopram [Celexa] 40 mg PO DAILY 08/06/19 Clopidogrel Bisulfate [Clopidogrel] 75 mg DAILY 08/06/19 Meloxicam 15 mg QHS 08/06/19 Omeprazole 40 mg QHS 08/06/19 Vancomycin/0.9 % Sod Chloride [Vanco 750 mg/150 ml-0.9% NaCl] 750 mg IV UD #10 [email or web address] 08/10/19 Acetaminophen [Tylenol Tablet] 650 mg PO Q6H PRN PRN tab 08/11/19 Menthol/Lanolin/Calamine/Znox [Calmoseptine Ointment] 1 applic TOPICAL TID tube 08/11/19 Nystatin Powder [Mycostatin Powder] 1 applic TOPICAL BID bottle 08/11/19 Following Prescrptions Were Given to Patient: Vancomycin/0.9 % Sod Chloride [Vanco 750 mg/150 ml-0.9% NaCl] 750 mg IV UD #10 [email or web address] Prescription Printed Primary Care Physician: Citlali Nguyen NP-C [Primary Care Provider] - Please follow up with your Primary Care Physician in: 1-2 weeks Please Follow Up With: Barb Schwartz DO When: as directed Please Follow Up With: Chun Bobo MD When: as directed Please Follow Up With: Chun Bang MD When: call for appointment Disposition: Home with Home Health Minutes spent on discharge:: 35 Patient Condition:: Stable Medical Necessity - Tobacco Use Smoking Status: Former smoker Tobacco Use: Non-smoker Meaningful Use Info Meaningful Use Diagnoses (Choose all that apply): None applicable <Pollo Corrigan F - Last Filed: 08/11/19 16:51> Hospital Course and Treatment Summary of Care Provided: The patient is a 68 year old F [] - Physical Exam Vitals/I&O's: Vital Signs Temp Pulse Resp BP Pulse Ox 98.6 F 85 18 131/69 H 93 08/11/19 10:37 08/11/19 11:41 08/11/19 11:41 08/11/19 10:37 08/11/19 11:41 Oxygen Flow Rate (L/min) 2 Oxygen Delivery Method Room Air Weight: 220 lb 7.396 oz Body Mass Index (BMI) 40.3 Intake and Output for Last 24 Hours 08/09/19 08/10/19 08/11/19 23:59 23:59 23:59 Intake Total 1690 / 1690 270.5 / 490.5 585 / 585 Output Total 2200 / 2200 0 / 0 Balance 1689 / 1689 -1929.5 / -1709.5 585 / 585 Microbiology Past 72 Hours 08/10/19 13:50 Mucosa - Throat Group A Streptococcus Rapid Screen - Preliminary 08/09/19 11:15 Blood Culture (Wb) - Left Hand Blood Culture - Preliminary No growth in 48 hours. 08/08/19 13:43 Blood Culture (Wb) - Right Hand Blood Culture - Preliminary 08/08/19 13:37 Blood Culture (Wb) - Left Hand Blood Culture - Preliminary 08/06/19 22:50 Mucosa - Nose Respiratory Panel (PCR) - Final 08/07/19 09:20 Sputum, Expectorated/Coughed Gram Stain - Final 08/07/19 09:20 Sputum, Expectorated/Coughed Respiratory Culture - Final 08/06/19 19:59 Blood Culture (Wb) - Venous Blood Culture - Final Meth. resistant Staph. aureus 08/06/19 19:49 Blood Culture (Wb) - Venous Bacteria Detection (PCR) - Final Staphylococcus aureus mecA Resistance Marker 08/06/19 19:49 Blood Culture (Wb) - Venous Blood Culture - Final Meth. resistant Staph. aureus 08/08/19 09:35 Stool Enteric Bacteriology - Final Laboratory Results 08/10/19 21:53: POC Glucose 97 08/11/19 06:25: WBC 5.8, RBC 2.97 L, Hgb 9.0 L, Hct 30.1 L, MCV 101.3 H, MCH 30.3, MCHC 29.9 L, RDW Std Deviation 58.3 H, RDW Coeff of Liza 15.6 H, Plt Count 234, MPV 10.1, Immature Gran % (Auto) 0.900, Neut % (Auto) 46.3 L, Lymph % (Auto) 37.5, Dauphin % (Auto) 10.8 H, Eos % (Auto) 4.0, Baso % (Auto) 0.5, Absolute Neuts (auto) 2.7, Absolute Lymphs (auto) 2.16, Nucleated RBC % 0 08/11/19 06:25: Sodium 138, Potassium 3.7, Chloride 105, Carbon Dioxide 28.0, Anion Gap 5, BUN 25 H, Creatinine 2.57 H, Estim Creat Clear Calc 16.34, Est GFR (MDRD) Af Amer 24 L, Est GFR (MDRD) Non-Af 20 L, BUN/Creatinine Ratio 9.7 L, Glucose 72 L, Calcium 8.1 L 08/11/19 06:34: POC Glucose 82 08/11/19 08:10: Random Vancomycin 16.2 H 08/11/19 11:28: POC Glucose 136 H Code Visit Addendum: Dr. Corrigan I personally examined the patient and reviewed the chart. I agree with the above. 68-year-old female who presented to the outside hospital with coughing and emesis with a chest x-ray which demonstrated a possible consolidation left thorax which potentially was chronic. She was found to have MRSA bacteremia and was started on vancomycin. The source was felt to be her hemodialysis port which was removed. Her blood cultures were cleared very quickly and a TTE was performed which did not show any vegetations. She was able to have another tunneled dialysis catheter placed and she underwent dialysis last night. She felt very well this morning and was discharged home with vancomycin and outpatient follow-up with her PCP and infectious disease. Inpatient E&M: [id number] Disch Hosp
== END 2019-08-11 14:45 | disposition home or self-care (01) | DRG 314 ==
PROVIDERS: Internal Medicine Infectious Disease; Internal Medicine Nephrology; Nurse Practitioner Family; Physician Assistant; Surgery; Family Provider Nurse Practitioner Family; PCP Nurse Practitioner Family; Visit Provider Family Medicine
PROC: 0JH63XZ Insertion of Tunneled Vascular Access Device into Chest Subcutaneous Tissue and Fascia, Percutaneous Approach (ICD-10-PCS; principal; 2019-08-10 10:30)
DX: T80.211A Bloodstream infection due to central venous catheter, initial encounter (principal); A41.02 Sepsis due to Methicillin resistant Staphylococcus aureus; N18.6 End stage renal disease; I12.0 Hypertensive chronic kidney disease with stage 5 chronic kidney disease or end stage renal disease; Z68.41 Body mass index [BMI] 40.0-44.9, adult; L03.313 Cellulitis of chest wall; L02.213 Cutaneous abscess of chest wall; E11.22 Type 2 diabetes mellitus with diabetic chronic kidney disease; E78.5 Hyperlipidemia, unspecified; D63.8 Anemia in other chronic diseases classified elsewhere; F32.9 Major depressive disorder, single episode, unspecified; E66.01 Morbid (severe) obesity due to excess calories; K21.9 Gastro-esophageal reflux disease without esophagitis; F41.9 Anxiety disorder, unspecified; R53.81 Other malaise; Z99.2 Dependence on renal dialysis; G89.29 Other chronic pain; M79.606 Pain in leg, unspecified; Z87.891 Personal history of nicotine dependence; E55.9 Vitamin D deficiency, unspecified
CPT/HCPCS: 36415; 71045; 71046; 76000; 80048; 80053; 80202; 81001; 82306; 82962; 83036; 84443; 85025; 85027; 87040; 87070; 87086; 87088; 87149; 87186; 87205; 87449; 87493; 87506; 87633; 87804; 87880; 90937; 93005; 93306; 94640; 94667; 94668; 97110; 97163; 97166; 97530; 97535; 99251; J7030; J7040; J7050; Q9957; A4216; C1769; C8929; G0257; G0463; Q5106

== ENCOUNTER 2019-08-31 13:38 | Inpatient (IN) | payer MEDICARE, MEDICAID, SELFPAY ==
[2019-08-31] VITALS (13 sets, daily range): BP systolic 127–176; BP diastolic 57–85; PULSE 73–116; RESP 12–30; TEMP 36.4–36.6; O2SAT 60–100; BMI 40.3; BMI 42.7; BMI 42.8; BMI 42.0
--- NOTE | 2019-08-31 13:59 | EKG12_ITS ---
Test Reason : SOB Blood Pressure : / mmHG Vent. Rate : 073 BPM Atrial Rate : 073 BPM P-R Int : 170 ms QRS Dur : 090 ms QT Int : 418 ms P-R-T Axes : 064 058 034 degrees QTc Int : 460 ms Normal sinus rhythm Poor R- wave Progrssion Septal ME, age undetermined, cannot be excluded Confirmed by CHUCK BHATTI, YVONNE ([id number]), research editor KARIS CALIX ([id number]) on 09/03/2019 3:29:06 PM Referred By: EBEN Confirmed By:YVONNE WOODS MD
--- NOTE | 2019-08-31 14:00 | ED.VISSUMM ---
- ER Visit Summary Date of Service: 08/31/19 Chief Complaint: Shortness of breath History of Present Illness: The patient is a 68 F history of end-stage renal disease dialysis. But has not been dialyzed this entire week. Due to illness and diarrhea. Patient is also had a prior SC. She used to be diabetic but is now off her medications. She used to also be hypertensive but is now off her medications. She has chronic anemia. Cardiac stents. Prior breast cancer. Patient states that she is been short of breath for 1 to 2 weeks worse over the last week. She denies chest pain. She denies hemoptysis. She really has no specific cough. She was reportedly seen at [facility] emergency department in [place]. They diagnosed her with possible pneumonia and put on antibiotics. She denies any melena. No fever. Physical Examination: Female no acute distress on 3 L she is 90%. H EENT exam unremarkable. Neck nontender no JVD. Lungs auscultation bilaterally but diminished bilaterally. No rhonchi. Heart regular rhythm rate about 75 no murmur. Abdomen morbidly obese but soft. Nontender. Normal bowel sounds. No peritoneal signs. Extremities moves all 4. Chest wall she is got a left-sided tunneled Vas-Cath. Back nontender. Neurologically she is awake and alert. Moving all 4 extremities. Test Results: Chest x-ray portable 1 view shows cardiomegaly and pulmonary edema with a left-sided Vas-Cath. Is also somewhat rotated. Read both myself and the radiologist. EKG normal sinus rhythm rate of 73 with no signs of SC, ischemia, dysrhythmia or hyperkalemia. CBC shows a white count of 10. Hemoglobin 7.8 she is at baseline chronic anemia, end-stage renal disease. Chemistries potassium 5.6. BUN 55 creatinine 4.52. Gap of 8. Troponin normal. Emergency Department Course and Treatment: Older dialysis patient has been dialyzed for a week with shortness of breath. Was seen at [facility] within the last week. There they diagnosed her with a possible pneumonia started on antibiotics. Clinically think it is more likely to be CHF or pleural effusion from not being dialyzed. Treatment Plan: Patient is missed a week of dialysis. Reportedly there is an issue with her Vas-Cath that might need TPA. She also needs dialyzed due to pulmonary edema and hyperkalemia. She still makes urine some to give her some IV Lasix. I will speak to the hospitalist about admission. Disposition: Admission Impression: Acute dyspnea Acute pulmonary edema secondary to missed dialysis and end-stage renal disease Acute hyperkalemia End-stage renal disease on dialysis but missed dialysis for the last week This note was generated with [employer] dictation software. It may contain incorrect words, spelling, and punctuation that were not noted in review of the chart prior to signing ED Disposition - Plan for ED Patient: Referrals: Citlali Nguyen, SUPER[employer]ING [employer]-C [Primary Care Provider] -
[2019-08-31 14:53] LABS: Absolute Lymphocyte Count 2.43 X10^3/uL (0.83-4.51); Absolute Neutrophil Count 6.5 X10^3/uL (2.0-7.7); Basophil# 0.04 X10^3/uL; Basophil% 0.4 % (0-1); Eosinophil# 0.32 X10^3/uL; Eosinophils% 3.2 % (0-5); Hemoglobin 7.8 g/dL (12.0-15.0); Lymphocyte # 2.43 X10^3/ul (4.0); Lymphocyte % 24.3 % (19-41); Mean Corpuscular Hgb 30.5 pg (27.0-32.0); Mean Corpuscular Volume 101.6 fL (81-99); Mean Platelet Vol. 8.8 fl (6.2-12.0); Monocyte# 0.71 X10^3/uL; Monocyte% 7.1 % (0-10); NRBC Flagged by Analyzer 0 % (0-5); Neutrophil # 6.46 X10^3/uL (2.7-7.7); Neutrophil % 64.5 % (47-70); Platelet Count 365 K/mm3 (150-450); RBC Distribution Width CV 15.2 % (11.6-14.6); RBC Distribution Width SD 56.3 fl (35.1-43.9); Red Blood Count 2.56 M/mm3 (4.2-5.4)
--- NOTE | 2019-08-31 15:06 | ED.RN ---
PT'S DAUGHTER COLE WANTS HER NAME AND NUMBER ON THE WHITE BOARD IN THE ROOM IF ADMITTED. SHE STATED THAT SHE COULD BE CALLED ANYTIME OF DAY OR NIGHT. HER NUMBER IS [phone]
--- NOTE | 2019-08-31 15:09 | RAD_ITS ---
STUDY: X-RAY CHEST REASON FOR EXAM: Female, 68 years old. INCREASED SOB, PT IS ALSO HAVING DIARRHEA -- PT ON DIALYSIS TECHNIQUE: AP and lateral views of the chest. COMPARISON: Comparison is made with prior study dated August 10, 2019. FINDINGS: Limited examination due to patient''s condition. A left-sided double-lumen catheter seen with the tip in the proximal superior vena cava. There is evidence of vascular congestion and CHF. There is no demonstrated pleural abnormality. There is moderate cardiac enlargement. Normal mediastinum and magalie. Normal visualized pulmonary arteries. There is atherosclerotic calcification of the aortic arch with tortuosity. Normal visualized thoracic spine. Normal visualized ribs, clavicles, and shoulders. There is no demonstrated abnormality of the visualized soft tissue structures of the upper abdomen. RAD/Chest PA and Lateral IMPRESSION: Cardiomegaly and CHF. Electronically Signed: Joseph Valencia, at 15:34 EST , Service support ,
[2019-08-31 15:10] LABS: Anion Gap 8 (5-15); BUN 55 mg/dL (7-18); BUN/Creat Ratio 12.2 RATIO (10-20); Calcium,Total 8.5 mg/dL (8.5-10.1); Chloride 108 mmol/L (98-107); Creatinine, Serum 4.52 mg/dL (0.55-1.02); EST Glomerular Filtration Rate 10 mL/min (>60); Est Glom Filt Rate - Afr Amer 12 mL/min (>60); Estimated Creatinine Clearance 9.29 ml/min; Glucose 65 mg/dL (74-106); Potassium 5.6 mmol/L (3.5-5.1); Sodium Level 139 mmol/L (136-145)
--- NOTE | 2019-08-31 15:53 | NURSING ---
PCU SEMENTI PULMONARY EDEMA, ESRD DIALYSIS, HYPERKALEMIA OBS
[2019-08-31] MEDS: Furosemide 40 MG/4 ML Vial IV (15:57)
--- NOTE | 2019-08-31 17:07 | HP.PCM_ITS ---
Problem List (1) Anemia in chronic kidney disease Status: Chronic Qualifiers: Qualified Code(s): N18.6 - End stage renal disease; D63.1 - Anemia in chronic kidney disease; Z99.2 - Dependence on renal dialysis (2) Hyperkalemia Status: Acute (3) Morbid obesity Status: Chronic (4) Hypertension Status: Chronic (5) Hyperlipidemia Status: Chronic (6) GERD (gastroesophageal reflux disease) Status: Chronic (7) Anxiety and depression Status: Chronic (8) Pulmonary edema Status: Acute Qualifiers: Qualified Code(s): J81.0 - Acute pulmonary edema Comment: secondary to missing multiple dialysis sessions (9) 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 (10) ESRD (end stage renal disease) on dialysis Status: Chronic (11) MRSA bacteremia Status: Acute Comment: August of 2019.....last day of Vanco is 09/05 (12) Problem with dialysis access Status: Acute Qualifiers: History of Present Illness Date of Admission: 08/31/19 Chief Complaint: SOB The patient is a 68 year old F with a past medical history of hypertension, morbid obesity, end-stage renal disease on hemodialysis, recent infected right side tunneled dialysis catheter with MRSA bacteremia still on vancomycin, anemia of chronic kidney disease, hyperlipidemia, GERD, anxiety/depression and di abetes mellitus type 2 in the obese who presented to the ED at [facility] on 08/31/[address] Chun Bobo's office with c/o SOB. She was admitted to [facility] on 08/06/2019 for sepsis secondary to an infected right IJ dialysis catheter with MRSA bacteremia. She was discharged on 08/11/2019 on IV vancomycin. She has not been to dialysis since last Tuesday because she said she diarrhea. I was told that the L IJ tunnelled catheter is now clotted. She denies fever/chills/cough. She is lying on her left side in bed and appears in no respiratory distress and she is flat. She is not tachypneic and she has no conversational dyspnea. Vital signs at presentation to the emergency department were temp 97.6, pulse 96, blood pressure 161/57, respiratory rate 20 and she was 80% saturated on room air. She was placed on a 3 L nasal cannula and her oxygen saturation is 100%. The white blood cell count is 10 with an unremarkable differential. Hemoglobin is 7.8, down from 9.0 on 08/11/2019 but this is more likely than not due to dilution from volume overload. Platelets are within normal limits. The PT is 15. Potassium is high at 5.6 and the BUN is 55 with a creatinine of 4.52. Troponin was less than 0.015. Chest x-ray is consistent with pulmonary edema. The pt is unkempt and dirty. The bandage on the L IJ has not been changed in the past week. She just keeps reinforcing with tape and the tape is dirty. He home lighting adviser could not see her and they do not do HD on the weekends and so she is being admitted to [facility]. Past Medical History Past Medical History (Chronic Problems): Chronic Problems (Last Updated 08/06/19 @ 19:15 by Moe Wise DO) Anemia in chronic kidney disease (Chronic) Morbid obesity (Chronic) Hypertension (Chronic) Hyperlipidemia (Chronic) GERD (gastroesophageal reflux disease) (Chronic) Anxiety and depression (Chronic) DM type 2 causing ESRD (Chronic) ESRD (end stage renal disease) on dialysis (Chronic) Medical History: Medical History (Last Reviewed 08/31/19 @ 19:28 by Reshma Gaines DO) Diet-controlled diabetes mellitus E11.9 ESRD (end stage renal disease) N18.6 HTN (hypertension) I10 Allergies loratadine Allergy (Verified 08/31/19 13:40) Unknown tape Allergy (Uncoded 08/06/19 20:11) Rash Home Medications: Ambulatory Orders Medication Instructions Recorded Amlodipine Besylate 5 mg PO BID 08/06/19 Atorvastatin Calcium 40 mg PO DAILY 08/06/19 Calcitriol 0.25 mg PO DAILY 08/06/19 Citalopram [Celexa] 40 mg PO DAILY 08/06/19 Clopidogrel Bisulfate [Clopidogrel] 75 mg PO DAILY 08/06/19 Meloxicam 15 mg PO DAILY 08/06/19 Acetaminophen [Tylenol Tablet] 650 mg PO Q6H PRN PRN tab 08/11/19 Cetirizine HCl 10 mg PO QHS 08/31/19 Omeprazole 40 mg PO QHS 08/31/19 Zolpidem Tartrate 10 mg PO QHS 08/31/19 Surgical History: - - TDC placement Psychiatric History: Anxiety, Depression Lives: With Family Smoking Status: Former smoker Tobacco Use: Cigarettes Alcohol: None Drugs: None - *Family History Maternal History Items: - - No known kidney disease Review of Systems Constitutional: Denies: Anorexia, Chills, Fever, Weight Change HEENT: Denies: Head Aches, Sinus Congestion, Sinus Drainage, Sore Throat Cardiovascular: Denies: Chest Pain, Edema, Light Headedness, Palpitations Respiratory: Reports: Shortness of Breath. Denies: Cough, Shortness of breath at rest, Sputum production, Wheezing Gastrointestinal: Reports: Diarrhea. Denies: Abdominal Pain, Nausea, Vomiting Genitourinary: Denies: Dysuria Musculoskeletal: Reports: Back Pain - chronic. Denies: Joint Pain, Joint Tenderness Skin: Denies: Rash, Wounds Neurological: Denies: Numbness, Tingling, Focal weakness Psychiatric: Reports: Anxiety, Depression. Denies: Homicidal Ideations, Suicidal Ideations Endocrine: Denies: Change in Body Habitus Hematologic/ Lymphatic: Denies: Easy Bruising, Easy Bleeding, Hx of blood clot VTE Information - Inpt Only VTE Present on Admission: No VTE Mechan Device Prophylaxis: SCD's, Knee High HEATHER Hose VTE Pharm Prophylaxis ordered?: No Reason prophylaxis not ordered:: Treatment Not Indicated - the treatment was held in preparation for possible temp dialysis catheter placement in the AM Patient Problems: Active and Suspected Problems (Last Updated 08/06/19 @ 19:15 by Moe Wise DO) Hyperkalemia (Acute) Pulmonary edema (Acute) secondary to missing multiple dialysis sessions - Physical Exam Vitals/I&O's: Vital Signs Temp Pulse Resp BP Pulse Ox 97.6 F L 99 23 H 147/71 H 100 08/31/19 14:42 08/31/19 15:59 08/31/19 15:59 08/31/19 15:59 08/31/19 15:59 Oxygen Flow Rate (L/min) 2.5 Oxygen Delivery Method Nasal Cannula Weight: 233 lb 14.567 oz Body Mass Index (BMI) 42.7 General: Alert, Oriented x3, Cooperative, No apparent distress, - - She is lying in the bed on her side, flat and has no tachypnea and no conversational dyspnea HEENT: Atraumatic, PERRLA, EOMI, Normocephalic, - - thinning oily hair Oral: Moist Mucosa, No Gingival or Mucosal Lesions/ Ulcerations Neck: Supple, No Nodes, Trachea Midline Lungs: Clear to auscultation, Diminished Cardiovascular: Regular rate, Regular Rhythm, No rub noted, No Gallop, - - distant heart sounds due to body habitus Abdomen: Bowel Sounds Present, Soft, Non Tender, Non-Distended, Obese Extremities: No clubbing, No cyanosis, No edema Skin: No rashes, No breakdown Neurological: Cranial nerves II-XII grossly intact, Neuro grossly intact, - - No focal neurologic deficits Psych/Mental Status: Appropriate, Flat Affect Laboratory Results 08/31/19 14:42: WBC 10.0, RBC 2.56 L, Hgb 7.8 L, Hct 26.0 L, MCV 101.6 H, MCH 30.5, MCHC 30.0 L, RDW Std Deviation 56.3 H, RDW Coeff of Liza 15.2 H, Plt Count 365, MPV 8.8, Immature Gran % (Auto) 0.500, Neut % (Auto) 64.5, Lymph % (Auto) 24.3, Stephens % (Auto) 7.1, Eos % (Auto) 3.2, Baso % (Auto) 0.4, Absolute Neuts (auto) 6.5, Absolute Lymphs (auto) 2.43, Nucleated RBC % 0 08/31/19 14:42: Sodium 139, Potassium 5.6 H, Chloride 108 H, Carbon Dioxide 23.0, Anion Gap 8, BUN 55 H, Creatinine 4.52 H, Estim Creat Clear Calc 9.29, Est GFR (MDRD) Af Amer 12 L, Est GFR (MDRD) Non-Af 10 L, BUN/Creatinine Ratio 12.2, Glucose 65 L, Calcium 8.5, Troponin I < 0.015 Assessment/Plan All Active Problems (Last Updated 08/06/19 @ 19:15 by Moe Wise DO) Problem with dialysis access (Acute) MRSA bacteremia (Acute) Hyperkalemia (Acute) Pulmonary edema (Acute) Sepsis (Resolved) Impressions 1. Pulmonary edema secondary to volume overload secondary to noncompliance with her dialysis schedule for the past 8 days. 2. Hyperkalemia - Kayexalate ordered. She was given a dose of Lasix in the ED since she still makes urine 3. Nonfunctional left internal jugular tunneled catheter-discussed with Dr. Schwartz. Will try Cathflo and if the dialysis catheter is not able to be used Dr. Noriega will insert another temporary dialysis catheter tomorrow. 4. Recent bacteremia with MRSA secondary to an infected right internal jugular dialysis catheter. She remains on vancomycin until 09/05/2019. We will check a vancomycin trough because she has not been going to dialysis therefore I suspect that she has not been getting the vancomycin. 5. Chronic medical conditions including anemia of chronic renal jorge luis lure/hypertension/hyperlipidemia/morbid obesity/anxiety/depression/GERD/diabetes mellitus type 2-complicate care, management and prognosis. This patient is non- compliant and because of this she is in pulmonary edema and may have a clotted dialysis catheter. she does not take responsibility for herself. Will consult to possibly arrange for [facility] to teach the pt appropriate cleanliness and prope r cath of a dialysis catheter. she was seeing Dr. Bobo to discuss an AV fistula and we can not keep putting in temporary catheters because she is not appropriately caring for them. Eventually the vv will sclerosis and she will not have access. Code Visit Inpatient E&M: 54666 Init Hosp L3
[2019-08-31 17:32] LABS: International Normalized Ratio 1.2
[2019-08-31 17:33] LABS: Partial Thromboplast Time 36.6 Seconds (24.1-36.2)
--- NOTE | 2019-08-31 18:12 | DIALYSIS ---
CATH ACTIVASE INSTILLED INTO EACH DIALYSIS PORT DUE TO POOR FLOWS
[2019-08-31] MEDS: Alteplase 2 MG/2 ML Vial IV ×2 (18:30)
--- NOTE | 2019-08-31 18:50 | PCM.CONS.R ---
Consultation - Renal 09/01/19 PCP/ Referring MD: Requesting physician: [] Primary care physician: Citlali Nguyen, BATCH ROLLER OPERATOR-C Reason for Consultation:: ESRD HD MWF - History of Present Illness History of Present Illness: The patient is a 68 year old, obese, chronically debilitated F with ESRD due to diabetes, hypertension. Dialysis at [facility] qMWF schedule, primary activity leader Dr Cam recently hospitalized 08/06 to 08/11/2019 at [facility] for MRSA line sepsis with new dialysis catheter placement during hospitalization. She was suppose to receive iv vanco post dialysis until 09/05/19 but missed her doses on 08/20, 08/27, and 08/29 due to noncompliance with dialysis. She is not able to ambulate. Refused ECF placement. Hospice/discontinuation of dialysis has been discussed between her primary activity leader, nursing staff at [facility] and pt/family due to her habitual noncompliance with dialysis treatments. She continues to complain of chronic diarrhea. Cdiff negative at last hospitalization. She went in to see Dr Bobo today for AVF creation but was sent to ER instead and did not receive her dialysis today. She has been noncompliant with her treatments. Skipped tx 08/20, shortened tx Sunday 09/24 due to poor catheter fxn, skipped on Sunday 08/27 and went to ER [facility] Tuesday 08/29 for SOB and sent home without dialysis. History obtained from nurse at [facility]. She is admitted for further management. Potassium elevated at 5.6 on admission improved with dialysis received in hospital Tuesday night . Oxygenation stable but continue to complains of cough, shortness of breath. - Allergies Allergies: Allergies loratadine Allergy (Verified 08/31/19 13:40) Unknown tape Allergy (Uncoded 08/06/19 20:11) Rash - Current Medications Current Medications: Current Medications Acetaminophen (Tylenol) 650 mg PO Q6H PRN PRN PRN Reason: Pain Score 1-3/Temp > 100.7 F Al Hydroxide/Mg Hydroxide (Mylanta Ii) 30 ml PO Q6H PRN PRN PRN Reason: Gastric Burning Amlodipine Besylate (Norvasc) 5 mg PO BID MARTHA Atorvastatin Calcium (Lipitor) 40 mg PO DAILY MARTHA Calcitriol (Rocaltrol) 0.25 mcg PO DAILY MARTHA Citalopram Hydrobromide (Celexa) 20 mg PO BID [facility] Non-Formulary Medication (Cetirizine Hcl) 10 mg PO QHS [facility] Prochlorperazine Edisylate (Compazine Iv) 5 mg IV Q6H PRN PRN PRN Reason: NAUSEA/VOMITING Senna/Docusate Sodium (Senokot-S, Carol-Colace) 2 tablet PO BID PRN PRN PRN Reason: Constipation - Past Medical History Past Medical History (Chronic Problems): Chronic Problems (Last Reviewed 08/31/19 @ 19:28 by Reshma Gaines DO) Anemia in chronic kidney disease (Chronic) Morbid obesity (Chronic) Hypertension (Chronic) Hyperlipidemia (Chronic) GERD (gastroesophageal reflux disease) (Chronic) Anxiety and depression (Chronic) DM type 2 causing ESRD (Chronic) ESRD (end stage renal disease) on dialysis (Chronic) - Past Surgical History Surgical History: - - TDC placement - Social History Smoking Status: Former smoker - Family History Maternal History Items: - - No known kidney disease Review of Systems Constitutional: Reports: Anorexia, Weakness - chronic, Fatigue - chronic. Denies: Chills, Fever HEENT: Denies: Sore Throat Cardiovascular: Denies: Chest Pain, Edema Respiratory: Reports: Cough, Shortness of Breath, Shortness of breath at rest Gastrointestinal: Reports: Diarrhea. Denies: Abdominal Pain, Nausea, Vomiting Musculoskeletal: Reports: - - leg pain, chronic Skin: Denies: Rash Neurological: Reports: Balance problems, - - gen weakness chronic. Denies: Seizures Psychiatric: Reports: Depression. Denies: Anxiety Hematologic/ Lymphatic: Reports: Anemia Patient Problems: Active and Suspected Problems (Last Reviewed 08/31/19 @ 19:28 by Reshma Gaines DO) Hyperkalemia (Acute) Pulmonary edema (Acute) secondary to missing multiple dialysis sessions - Physical Exam Vitals/I&O's: Vital Signs Temp Pulse Resp BP Pulse Ox 97.7 F L 100 14 164/85 H 99 08/31/19 17:17 08/31/19 17:41 08/31/19 17:17 08/31/19 17:17 08/31/19 18:00 Oxygen Flow Rate (L/min) 1 Oxygen Delivery Method Nasal Cannula Weight: 104.3 kg Body Mass Index (BMI) 42.0 Intake and Output for Last 24 Hours 08/29/19 08/30/19 08/31/19 23:59 23:59 23:59 Intake Total 200 / 200 Balance 200 / 200 General: Alert, Oriented x3, Cooperative, - - mild conversational dyspnea Oral: Moist Mucosa Lungs: Rales - bases Cardiovascular: Irregular Rate Abdomen: Bowel Sounds Present, Soft, Non Tender, Obese Extremities: No edema Skin: - - erythema exit site of dialysis catheter Musculoskeletal: Muscle Wasting, - - debilitated, gen weakness Neurological: - - gen weakness Psych/Mental Status: Normal Affect, Appropriate, Alert and oriented to time, place, person, mood and affect Laboratory Results 08/31/19 14:42: WBC 10.0, RBC 2.56 L, Hgb 7.8 L, Hct 26.0 L, MCV 101.6 H, MCH 30.5, MCHC 30.0 L, RDW Std Deviation 56.3 H, RDW Coeff of Liza 15.2 H, Plt Count 365, MPV 8.8, Immature Gran % (Auto) 0.500, Neut % (Auto) 64.5, Lymph % (Auto) 24.3, [place] % (Auto) 7.1, Eos % (Auto) 3.2, Baso % (Auto) 0.4, Absolute Neuts (auto) 6.5, Absolute Lymphs (auto) 2.43, Nucleated RBC % 0 08/31/19 14:42: Sodium 139, Potassium 5.6 H, Chloride 108 H, Carbon Dioxide 23.0, Anion Gap 8, BUN 55 H, Creatinine 4.52 H, Estim Creat Clear Calc 9.29, Est GFR (MDRD) Af Amer 12 L, Est GFR (MDRD) Non-Af 10 L, BUN/Creatinine Ratio 12.2, Glucose 65 L, Calcium 8.5, Troponin I < 0.015 08/31/19 14:42: PT 15.0 H, INR 1.2, APTT 36.6 H Current Medications Acetaminophen (Tylenol) 650 mg PO Q6H PRN PRN PRN Reason: Pain Score 1-3/Temp > 100.7 F Al Hydroxide/Mg Hydroxide (Mylanta Ii) 30 ml PO Q6H PRN PRN PRN Reason: Gastric Burning Amlodipine Besylate (Norvasc) 5 mg PO BID MARTHA Atorvastatin Calcium (Lipitor) 40 mg PO DAILY MARTHA Calcitriol (Rocaltrol) 0.25 mcg PO DAILY MARTHA Citalopram Hydrobromide (Celexa) 20 mg PO BID [facility]THA Non-Formulary Medication (Cetirizine Hcl) 10 mg PO QHS [facility]THA Prochlorperazine Edisylate (Compazine Iv) 5 mg IV Q6H PRN PRN PRN Reason: NAUSEA/VOMITING Senna/Docusate Sodium (Senokot-S, Carol-Colace) 2 tablet PO BID PRN PRN PRN Reason: Constipation Assessment/Plan All Active Problems (Last Reviewed 08/31/19 @ 19:28 by Reshma Gaines DO) Problem with dialysis access (Acute) MRSA bacteremia (Acute) Hyperkalemia (Acute) Pulmonary edema (Acute) Sepsis (Resolved) 1. ESRD dialysis arranged with TPA of dialysis catheter. HD MWF. UF only today (Sat) for continued shortness of breath 2. Hyperkalemia kayexalate 30g po x1, corrected with dialysis 3. Noncompliance with dialysis 4. MRSA line sepsis 08/06/2019 with incomplete course of antibx due to noncompliance with dialysis, last dose given 08/24 at dialysis center. Send blood cx on dialysis. Vanco x1 after dialysis yesterday 5. Pulmonary edema oxygenation stable on 1L NC. UF today for SOB, rales on exam 6. Anemia prbc as needed, GWENDOLYN on dialysis 7. Debilitation
[2019-08-31] MEDS: Sodium Polystyrene Sulfonate 15 GM/60 ML UDC 30 GM PO (19:02)
[2019-08-31 20:16] LABS: Bedside Glucose 82 mg/dL (70-110)
[2019-08-31] MEDS: Vancomycin IV 1,000 MG/200 ML BAG 200 MG IV (22:54)
[2019-08-31] MEDS: amLODIPine 5 MG Tablet PO (22:59)
[2019-08-31] MEDS: Citalopram 20 MG Tablet PO (23:00)
--- NOTE | 2019-08-31 23:10 | DIALYSIS ---
HD X 3 HRS CATH ACTIVASE DWELLED FOR AN HR BEFORE TX STARTED FOR POOR CATH FUNCTION. GOOD FLOWS AFTER- [id number] TOLERATED FAIR- HAD AN EPISODE WHERE O2 SAT DROPPED AND WENT ON BIPAP BUT STABLE POST TX. BC X 2 DRAWN FROM DIALYSATE LINE. REPORT TO CHARLEY GILBERT PT RECIEVED JESSICA 1GM POST TX GIVEN BY FLOOR RN
[2019-09-01] VITALS (12 sets, daily range): BP systolic 148–161; BP diastolic 52–79; PULSE 73–98; RESP 16–20; TEMP 36.6–36.8; O2SAT 98–100
[2019-09-01] MEDS: Acetaminophen 325 MG Tablet 650 MG PO ×3 (00:16→13:52)
[2019-09-01 06:03] LABS: Hematocrit 26.2 % (37-47); Hemoglobin 7.9 g/dL (12.0-15.0); Mean Corp Hgb Conc 30.2 g/dL (32-36); Mean Corpuscular Hgb 30.2 pg (27.0-32.0); Mean Platelet Vol. 8.9 fl (6.2-12.0); Platelet Count 351 K/mm3 (150-450); RBC Distribution Width CV 14.9 % (11.6-14.6); RBC Distribution Width SD 54.4 fl (35.1-43.9); Red Blood Count 2.62 M/mm3 (4.2-5.4); White Blood Count 7.7 K/mm3 (4.4-11.0)
[2019-09-01 06:35] LABS: Phosphorus 3.6 mg/dL (2.5-4.9)
[2019-09-01 06:36] LABS: ALB/GLOB Ratio 0.4 RATIO (0.9-2.4); AST(SGOT) 13 U/L (15-37); Alanine Aminotransfer ALT/SGPT < 6 U/L (13-56); Albumin, Serum 1.7 g/dL (3.2-5.0); Alkaline Phosphatase 99 U/L (45-117); Anion Gap 6 (5-15); BUN 23 mg/dL (7-18); BUN/Creat Ratio 9.7 RATIO (10-20); Calcium,Total 7.8 mg/dL (8.5-10.1); Chloride 102 mmol/L (98-107); Creatinine, Serum 2.36 mg/dL (0.55-1.02); EST Glomerular Filtration Rate 22 mL/min (>60); Est Glom Filt Rate - Afr Amer 26 mL/min (>60); Estimated Creatinine Clearance 17.79 ml/min; Globulin 4.6 g/dL (2.2-4.2); Glucose 56 mg/dL (74-106); Potassium 3.3 mmol/L (3.5-5.1); Protein, Total 6.3 g/dL (6.4-8.2); Sodium Level 137 mmol/L (136-145)
[2019-09-01 06:56] LABS: Bedside Glucose 63 mg/dL (70-110)
[2019-09-01] MEDS: Citalopram 20 MG Tablet PO ×2 (08:12→21:21)
[2019-09-01] MEDS: Atorvastatin Calcium 40 MG Tablet PO (08:13)
[2019-09-01] MEDS: amLODIPine 5 MG Tablet PO ×2 (08:13→21:22)
[2019-09-01] MEDS: Calcitriol 0.25 MCG Capsule PO (08:14)
--- NOTE | 2019-09-01 08:23 | PN_ITS ---
Patient Problems: Active and Suspected Problems (Last Reviewed 08/31/19 @ 19:28 by Reshma Gaines DO) Hyperkalemia (Acute) Pulmonary edema (Acute) secondary to missing multiple dialysis sessions Reason for Visit: Shortness of breath and hypoxia secondary to secondary to missed hemodialysis. Missed hemodialysis Objective: Patient most of the time lies on left lateral position as she gets short of breath on turning supine. Mostly bedridden. Noncompliant to hemodialysis and antibiotic cessation during dialysis. Blood pressure 158/52, 148/62, pulse ox 98% on 2 L of oxygen Vitals/I&O's: Vital Signs Temp Pulse Resp BP Pulse Ox 97.9 F 95 20 H 148/68 H 99 09/01/19 08:05 09/01/19 08:05 09/01/19 08:05 09/01/19 08:05 09/01/19 08:05 Oxygen Flow Rate (L/min) 3 Oxygen Delivery Method Nasal Cannula Weight: 221 lb 1.978 oz Body Mass Index (BMI) 42.0 Intake and Output for Last 24 Hours 08/30/19 08/31/19 09/01/19 23:59 23:59 23:59 Intake Total 200 / 440 680 / 680 Output Total 1999 Balance -1800 / -1560 680 / 680 General: Alert, Oriented x3, Cooperative HEENT: Atraumatic, PERRLA, EOMI, Normocephalic Oral: Dry Mucosa Neck: Supple, No JVD, Negative Carotid Bruits Lungs: Diminished - Air entry diminished in bilateral lungs, Rales - BiLateral rales present, Rhonchi, - - Hemodialysis catheter on the left upper chest, subclavicular region Cardiovascular: Normal S1, Normal S2, No murmurs, Irregular Rate, Murmur - Systolic murmur present over left lower sternal border, - - Telemetry shows A. fib Abdomen: Bowel Sounds Present, Soft, Non Tender, Non-Distended Extremities: Capillary Refill Less than 3 Seconds, Edema Skin: No rashes, No breakdown Musculoskeletal: No Tenderness to Palpation of Joints or Extremities, Arthritic Changes Neurological: Cranial nerves II-XII grossly intact, Deep Tendon Reflexes 2+/4 and Symmetrical, Neuro grossly intact Psych/Mental Status: Normal Affect, Appropriate Laboratory Results 08/31/19 14:42: WBC 10.0, RBC 2.56 L, Hgb 7.8 L, Hct 26.0 L, MCV 101.6 H, MCH 30.5, MCHC 30.0 L, RDW Std Deviation 56.3 H, RDW Coeff of Liza 15.2 H, Plt Count 365, MPV 8.8, Immature Gran % (Auto) 0.500, Neut % (Auto) 64.5, Lymph % (Auto) 24.3, Whitfield % (Auto) 7.1, Eos % (Auto) 3.2, Baso % (Auto) 0.4, Absolute Neuts (auto) 6.5, Absolute Lymphs (auto) 2.43, Nucleated RBC % 0 08/31/19 14:42: Sodium 139, Potassium 5.6 H, Chloride 108 H, Carbon Dioxide 23.0, Anion Gap 8, BUN 55 H, Creatinine 4.52 H, Estim Creat Clear Calc 9.29, Est GFR (MDRD) Af Amer 12 L, Est GFR (MDRD) Non-Af 10 L, BUN/Creatinine Ratio 12.2, Glucose 65 L, Calcium 8.5, Troponin I < 0.015 08/31/19 14:42: PT 15.0 H, INR 1.2, APTT 36.6 H 08/31/19 20:12: POC Glucose 82 09/01/19 05:25: WBC 7.7, RBC 2.62 L, Hgb 7.9 L, Hct 26.2 L, MCV 100.0 H, MCH 30.2, MCHC 30.2 L, RDW Std Deviation 54.4 H, RDW Coeff of Liza 14.9 H, Plt Count 351, MPV 8.9 09/01/19 05:25: Sodium 137, Potassium 3.3 L, Chloride 102, Carbon Dioxide 29.0, Anion Gap 6, BUN 23 H, Creatinine 2.36 H, Estim Creat Clear Calc 17.79, Est GFR (MDRD) Af Amer 26 L, Est GFR (MDRD) Non-Af 22 L, BUN/Creatinine Ratio 9.7 L, Glucose 56 L, Calcium 7.8 L, Total Bilirubin 0.30, AST 13 L, ALT < 6 L, Alkaline Phosphatase 99, Total Protein 6.3 L, Albumin 1.7 L, Globulin 4.6 H, Albumin/Globulin Ratio 0.4 L 09/01/19 05:25: Phosphorus 3.6 09/01/19 06:52: POC Glucose 63 L Current Medications Acetaminophen (Tylenol) 650 mg PO Q6H PRN PRN PRN Reason: Pain Score 1-3/Temp > 100.7 F Last Admin: 09/01/19 08:11 Dose: 650 mg Documented by: Al Hydroxide/Mg Hydroxide (Mylanta Ii) 30 ml PO Q6H PRN PRN PRN Reason: Gastric Burning Amlodipine Besylate (Norvasc) 5 mg PO BID [facility] Last Admin: 09/01/19 08:13 Dose: 5 mg Documented by: Atorvastatin Calcium (Lipitor) 40 mg PO DAILY [facility] Last Admin: 09/01/19 08:13 Dose: 40 mg Documented by: Calcitriol (Rocaltrol) 0.25 mcg PO DAILY [facility] Last Admin: 09/01/19 08:14 Dose: 0.25 mcg Documented by: Cetirizine HCl (Zyrtec) 10 mg PO QHS [facility] Last Admin: 09/01/19 00:00 Dose: Not Given Documented by: Citalopram Hydrobromide (Celexa) 20 mg PO BID [facility] Last Admin: 09/01/19 08:12 Dose: 20 mg Documented by: Insulin Human Lispro (Humalog Kwikpen (Bkc)) 0 unit SC [facility]; Protocol Last Admin: 09/01/19 07:56 Dose: Not Given Documented by: Prochlorperazine Edisylate (Compazine Iv) 5 mg IV Q6H PRN PRN PRN Reason: NAUSEA/VOMITING Senna/Docusate Sodium (Senokot-S, Carol-Colace) 2 tablet PO BID PRN PRN PRN Reason: Constipation STROKE Vital Signs/Narrative: Vital Signs Temp Pulse Resp BP Pulse Ox 09/01/19 08:05 97.9 F 95 20 H 148/68 H 99 09/01/19 07:47 98 09/01/19 07:30 96 09/01/19 04:45 98.3 F 73 16 158/52 H 100 Medical Necessity - Tobacco Use Smoking Status: Former smoker Tobacco Use: Cigarettes Assessment/Plan All Active Problems (Last Reviewed 08/31/19 @ 19:28 by Reshma Gaines DO) Problem with dialysis access (Acute) MRSA bacteremia (Acute) Hyperkalemia (Acute) Pulmonary edema (Acute) Sepsis (Resolved) There is a 68-year-old female with multiple comorbidities including end-stage renal disease on hemodialysis, recent infected MRSA right-sided tunneled hemodialysis catheter replaced with left subclavian hemodialysis catheter was admitted yesterday from ER for shortness of breath. Patient missing her hemodialysis and antibiotics during hemodialysis. Patient was found hypoxic 80% on room air. Chest x-ray independently reviewed and is limited secondary to patient's position. Left lower hemithorax opacity probably secondary to effusion, atelectasis or position as it was similar in other previous x-rays suggesting evidence of vascular congestion and CHF. Impressions 1. pulmonary edema secondary to volume overload secondary to noncompliance with her dialysis schedule for the past 8 days. Patient is being admitted in PCU. Patient had hemodialysis. Catheter was functioning after TPA. 2. Hyperkalemia -Kayexalate was given, hyperkalemia resolved. Currently K3.3. 3. Nonfunctional left internal jugular tunneled catheter-discussed with Dr. Schwartz. As mentioned above. 4. Recent bacteremia with MRSA secondary to an infected right internal jugular dialysis catheter. She remains on vancomycin until 09/05/2019. Check vancomycin trough. 5. Chronic medical conditions including anemia of chronic renal failure/hypertension/hyperlipidemia/morbid obesity/anxiety/depression/GERD/diabetes mellitus type: Multiple comorbidities complicates the present care and expect difficult and delay recovery and entails poor prognosis. He also noncompliant. information security manager is consulted. Total time of the visit including total time spent in counseling or coordination of care, (more than 50% of the total time, spent in obtaining medical information from nurses and other ancillary care providers), discussion with surgeon and nurse, review of labs and imaging is 30 minutes Advanced directive/CODE STATUS: Daughter Ms. Michelle Brown is power of sap business intelligence consultant for health. When discussed about the CODE STATUS, full code, DNR CC arrest and DNR CC she herself said she wants to be full code and her daughter also wants to be full code. I emphasized about compliance of medication, hemodialysis session and antibiotics. This was done in the presence of Lesli vazquez. Total time spent in [id number] encounter in discussion of advanced directive 16 minutes. Code Visit Inpatient E&M: 42257 Subs Hosp L2 Procedures: 81631 Advncd Care Plan 30 Min
--- NOTE | 2019-09-01 11:19 | CPS ---
started by nursing
[2019-09-01] MEDS: Miconazole-7 Nitrate Cream 1 APPLIC VAGINAL (12:22)
[2019-09-01 12:36] LABS: Bedside Glucose 94 mg/dL (70-110)
--- NOTE | 2019-09-01 16:55 | CM.UR ---
Addendum entered by Kajal Latif 09/01/19 17:22: Spoke with daughter, Michelle. States that she went in last Tuesday for dialysis and her catheter was plugged then so they sent her back home w/o doing dialysis. States the antibiotic gave her really bad diarrhea on Tuesday so she did cancel because she was having frequent diarrhea. Then she took her to dialysis on Tuesday but she developed shortness of breath so dialysis called squad. States she was treated and released from ER. Then on Tuesday (yesterday) she went to Dr. Bobo's office prior to dialysis and he sent her to ER. Denies having any questions or denies needing additional education. States she understands how important dialysis is. They continue to decline SNF. States the one her daughter works at--they would allow her to go there but they no longer transport to/from dialysis--so they would rather just have her at home. States she had been getting therapy and has been getting up in the chair more. She explained the O2 was sent by Hospice from when she agreed to hospice at one time. States that they revoked hospice and then the o2 company ([employer]) called at 8:30 pm to pick it up. Michelle told them it was too late at night and call to come another time. States they haven't called back to come pick it up so she has been using it at home when she gets short of breath or her o2 drops low. They do have a pulse oximeter. Also has a bedside table. states PT that is coming to home is setting them up for a koby lift at home. States wants to continue therapy but the PT said they may have to dc because her PCP has not been signing orders. States patient can't sit up in w/c for very long. I discussed custom w/c where they can tilt back. States she wasn't aware of w/c like that and states they just got a new w/c so probably can't get another one. She states patient had a lap band years ago. States she lost a lot of weight but then it adhered and had to be surgically removed. States she has had trouble sitting up straight since then without feeling like she has to vomit. Daphney Latif RN,CCM. Original Note: VLADIMIR CM Assessment Diagnosis: hyperkalemia, ESRD w/dialysis and Resp failure. Intro role of CM and purpose of RN CM assessment to patient in room. Pt is alert and able to participate in assessment. Patient states she is bed/chair bound. Family lifts her into wheelchair and vehicle to transfer her to Dialysis. PCP: Citlali Nguyen NP Specialists: Dr. Bobo. [facility] Benefit: yes Dialysis: [facility], [facility] LNOK: Daughter, Michelle Brown Living Arrangements: Lives with daughter in one story home. Daughter does all care needs and transportation. Transportation: Family drives DME: Hospital bed, trapeze, wheelchair, Oxygen HHC/SNF: HHC--Promotional therapy and SNF @ [facility] in past. SW Referral: Pt has passport services Patient DC goals: Home DC PLAN: undetermined. Patient states that they live in an appt. States they have a large multifamily [facility] home that several family member have their own apartments. States Michelle does most for her but there are others who can come and help her. States she has oxygen. States a hospice [facility] set it up. Then she said they came to pick it up because they heard she had . But then she said it is not mine, but I use it. She gave permission for us to call Michelle for anything. Daphney Latif RN, [facility].
[2019-09-01 18:26] LABS: Bedside Glucose 94 mg/dL (70-110)
[2019-09-01] MEDS: Alteplase 2 MG/2 ML Vial IV (19:30)
[2019-09-01] MEDS: Zolpidem Tartrate 5 MG Tablet PO ×2 (21:21→22:16)
[2019-09-01] MEDS: CETIRIZINE HCL 10 MG TABLET PO (21:22)
[2019-09-01 21:31] LABS: Bedside Glucose 100 mg/dL (70-110)
--- NOTE | 2019-09-01 22:21 | CPS ---
Pt. refused to wear BiPAP tonight. Would like to remain on 3L NC tonight. Pt. will be monitored throughout the night with BiPAP still in room. If she does okay overnight, BiPAP will be pulled in the morning per pt. request. Did not wear last night either.
[2019-09-02] VITALS (12 sets, daily range): BP systolic 134–157; BP diastolic 68–74; PULSE 82–103; RESP 16–18; TEMP 36.6; O2SAT 96–100
[2019-09-02 06:56] LABS: Bedside Glucose 71 mg/dL (70-110)
[2019-09-02 08:29] LABS: Anion Gap 5 (5-15); BUN 27 mg/dL (7-18); BUN/Creat Ratio 8.9 RATIO (10-20); Calcium,Total 8.4 mg/dL (8.5-10.1); Chloride 108 mmol/L (98-107); Creatinine, Serum 3.05 mg/dL (0.55-1.02); EST Glomerular Filtration Rate 16 mL/min (>60); Est Glom Filt Rate - Afr Amer 20 mL/min (>60); Estimated Creatinine Clearance 13.77 ml/min; Glucose 80 mg/dL (74-106); Potassium 3.5 mmol/L (3.5-5.1); Sodium Level 142 mmol/L (136-145)
[2019-09-02 08:30] LABS: Absolute Neutrophil Count 3.9 X10^3/uL (2.0-7.7); Basophil# 0.05 X10^3/uL; Basophil% 0.7 % (0-1); Eosinophil# 0.29 X10^3/uL; Hematocrit 27.4 % (37-47); Hemoglobin 8.3 g/dL (12.0-15.0); Lymphocyte % 31.4 % (19-41); Mean Corp Hgb Conc 30.3 g/dL (32-36); Mean Corpuscular Hgb 30.7 pg (27.0-32.0); Mean Corpuscular Volume 101.5 fL (81-99); Mean Platelet Vol. 8.9 fl (6.2-12.0); Monocyte# 0.78 X10^3/uL; Monocyte% 10.6 % (0-10); NRBC Flagged by Analyzer 0 % (0-5); Neutrophil # 3.88 X10^3/uL (2.7-7.7); Neutrophil % 52.9 % (47-70); Platelet Count 332 K/mm3 (150-450); RBC Distribution Width CV 14.8 % (11.6-14.6); RBC Distribution Width SD 54.7 fl (35.1-43.9); White Blood Count 7.3 K/mm3 (4.4-11.0)
[2019-09-02] MEDS: Citalopram 20 MG Tablet PO ×2 (09:04→21:03)
[2019-09-02] MEDS: amLODIPine 5 MG Tablet PO ×2 (09:04→21:03)
[2019-09-02] MEDS: Atorvastatin Calcium 40 MG Tablet PO (09:04)
[2019-09-02] MEDS: Calcitriol 0.25 MCG Capsule PO (09:04)
[2019-09-02] MEDS: Acetaminophen 325 MG Tablet 650 MG PO ×2 (09:05→15:36)
[2019-09-02] MEDS: guaiFENesin 600 MG Tablet PO ×2 (09:08→21:08)
--- NOTE | 2019-09-02 09:52 | PN_ITS ---
Patient Problems: Active and Suspected Problems (Last Reviewed 08/31/19 @ 19:28 by Reshma Gaines DO) Hyperkalemia (Acute) Pulmonary edema (Acute) secondary to missing multiple dialysis sessions Reason for Visit: Pulmonary edema secondary to missed hemodialysis. MRSA bacteremia noncompliant to dialysis with IV vancomycin antibiotic. Objective: The patient has cough with minimal sputum production. Clinically no fever, tachycardia or signs of sepsis. Heart rate in 90s, A. fib Vitals/I&O's: Vital Signs Temp Pulse Resp BP Pulse Ox 97.8 F 95 17 147/73 H 96 09/02/19 08:54 09/02/19 08:54 09/02/19 08:54 09/02/19 08:54 09/02/19 08:54 Oxygen Flow Rate (L/min) 3 Oxygen Delivery Method Nasal Cannula Weight: 217 lb 9.54 oz Body Mass Index (BMI) 42.0 Intake and Output for Last 24 Hours 08/31/19 09/01/19 09/02/19 23:59 23:59 23:59 Intake Total 200 / 440 1220 / 1220 120 / 120 Output Total 1999 / 1999 Balance -1800 / -1560 1220 / 1220 120 / 120 General: Alert, Oriented x3, Cooperative HEENT: Atraumatic, PERRLA, EOMI, Normocephalic Oral: No Gingival or Mucosal Lesions/ Ulcerations - No inflammatory exudate or purulence found., Dry Mucosa Neck: Supple, No JVD, Negative Carotid Bruits Lungs: Clear to auscultation, No rhonchi, No wheeze, No rales, Diminished Cardiovascular: Regular rate, Normal S1, Normal S2, Irregular Rate, Murmur Abdomen: Bowel Sounds Present, Soft, Non Tender, Non-Distended Extremities: No edema, Capillary Refill Less than 3 Seconds, - - As per nursing staff,yeast infection in groin region. Skin: No rashes, No breakdown Musculoskeletal: No Tenderness to Palpation of Joints or Extremities, Arthritic Changes Neurological: Cranial nerves II-XII grossly intact Psych/Mental Status: Normal Affect, Appropriate Laboratory Results 09/01/19 11:45: POC Glucose 94 09/01/19 18:18: POC Glucose 94 09/01/19 21:18: POC Glucose 100 09/02/19 06:21: POC Glucose 71 09/02/19 08:05: WBC 7.3, RBC 2.70 L, Hgb 8.3 L, Hct 27.4 L, MCV 101.5 H, MCH 30.7, MCHC 30.3 L, RDW Std Deviation 54.7 H, RDW Coeff of Liza 14.8 H, Plt Count 332, MPV 8.9, Immature Gran % (Auto) 0.400, Neut % (Auto) 52.9, Lymph % (Auto) 31.4, Leslie % (Auto) 10.6 H, Eos % (Auto) 4.0, Baso % (Auto) 0.7, Absolute Neuts (auto) 3.9, Absolute Lymphs (auto) 2.30, Nucleated RBC % 0 09/02/19 08:05: Sodium 142, Potassium 3.5, Chloride 108 H, Carbon Dioxide 29.0, Anion Gap 5, BUN 27 H, Creatinine 3.05 H, Estim Creat Clear Calc 13.77, Est GFR (MDRD) Af Amer 20 L, Est GFR (MDRD) Non-Af 16 L, BUN/Creatinine Ratio 8.9 L, Glucose 80, Calcium 8.4 L Current Medications Acetaminophen (Tylenol) 650 mg PO Q6H PRN PRN PRN Reason: Pain Score 1-3/Temp > 100.7 F Last Admin: 09/02/19 09:05 Dose: 650 mg Documented by: Al Hydroxide/Mg Hydroxide (Mylanta Ii) 30 ml PO Q6H PRN PRN PRN Reason: Gastric Burning Amlodipine Besylate (Norvasc) 5 mg PO BID [facility] Last Admin: 09/02/19 09:04 Dose: 5 mg Documented by: Atorvastatin Calcium (Lipitor) 40 mg PO DAILY [facility] Last Admin: 09/02/19 09:04 Dose: 40 mg Documented by: Calcitriol (Rocaltrol) 0.25 mcg PO DAILY [facility] Last Admin: 09/02/19 09:04 Dose: 0.25 mcg Documented by: Cetirizine HCl (Zyrtec) 10 mg PO QHS [facility] Last Admin: 09/01/19 21:22 Dose: 10 mg Documented by: Citalopram Hydrobromide (Celexa) 20 mg PO BID [facility] Last Admin: 09/02/19 09:04 Dose: 20 mg Documented by: Guaifenesin (Mucinex) 600 mg PO BID [facility] Last Admin: 09/02/19 09:08 Dose: 600 mg Documented by: Insulin Human Lispro (Humalog Kwikpen (Bkc)) 0 unit SC [facility]; Protocol Last Admin: 09/02/19 06:57 Dose: Not Given Documented by: Miconazole Nitrate (Monistat 7) 1 applic VAGINAL QHS [facility] Last Admin: 09/01/19 12:22 Dose: 1 applicatio Documented by: Prochlorperazine Edisylate (Compazine Iv) 5 mg IV Q6H PRN PRN PRN Reason: NAUSEA/VOMITING Senna/Docusate Sodium (Senokot-S, Carol-Colace) 2 tablet PO BID PRN PRN PRN Reason: Constipation Zolpidem Tartrate (Ambien (Generic)) 5 mg PO QHS [facility] Last Admin: 09/01/19 22:16 Dose: 5 mg Documented by: STROKE Vital Signs/Narrative: Vital Signs Temp Pulse Resp BP Pulse Ox 09/02/19 08:54 97.8 F 95 17 147/73 H 96 09/02/19 07:20 97 09/02/19 07:19 97 Medical Necessity - Tobacco Use Smoking Status: Former smoker Tobacco Use: Cigarettes Assessment/Plan All Active Problems (Last Reviewed 08/31/19 @ 19:28 by Reshma Gaines DO) Problem with dialysis access (Acute) MRSA bacteremia (Acute) Hyperkalemia (Acute) Pulmonary edema (Acute) Sepsis (Resolved) There is a 68-year-old female with multiple comorbidities including end-stage renal disease on hemodialysis, recent infected MRSA right-sided tunneled hemodialysis catheter replaced with left subclavian hemodialysis catheter was admitted yesterday from ER for shortness of breath. Patient missing her hemodialysis and antibiotics during hemodialysis. Patient was found hypoxic 80% on room air. Impressions 1. pulmonary edema secondary to volume overload secondary to noncompliance with her dialysis schedule for the past 8 days. Patient is being admitted in PCU. Patient had hemodialysis. Catheter was functioning after TPA. Chest x-ray shows Left lower hemithorax opacity probably secondary to effusion, atelectasis or position 2/2: Lungs sounds much clear and improved air entry. Dialysis is scheduled as per floor manager. Generally, patient is on Tuesday, Tuesday and Tuesday schedule. Mucinex, incentive spirometry and chest physiotherapy for bronchopulmonary hygiene. 2. Hyperkalemia -Kayexalate was given, hyperkalemia resolved. Currently K3.3. /: Repeat K3.5. 3. Nonfunctional left internal jugular tunneled catheter-discussed with Dr. Schwartz. As mentioned above. 4. Recent bacteremia with MRSA secondary to an infected right internal jugular dialysis catheter. She remains on vancomycin until 09/05/2019. Check vancomycin trough. 09/02: Discussed with pharmacy. Is following Vanco trough level. 5. Chronic medical conditions including anemia of chronic renal failure/hypertension/hyperlipidemia/morbid obesity/anxiety/depression/GERD/diabetes mellitus type: Multiple comorbidities complicates the present care and expect difficult and delay recovery and entails poor prognosis. He also noncompliant. rainbow trout farm manager is consulted. Total time of the visit including total time spent in counseling or coordination of care, (more than 50% of the total time, spent in obtaining medical information from nurses and other ancillary care providers), discussion with surgeon and nurse, review of labs and imaging is 30 minutes Advanced directive/CODE STATUS: Full code Laboratory Results 09/01/19 11:45: POC Glucose 94 09/01/19 18:18: POC Glucose 94 09/01/19 21:18: POC Glucose 100 09/02/19 06:21: POC Glucose 71 09/02/19 08:05: WBC 7.3, RBC 2.70 L, Hgb 8.3 L, Hct 27.4 L, MCV 101.5 H, MCH 30.7, MCHC 30.3 L, RDW Std Deviation 54.7 H, RDW Coeff of Liza 14.8 H, Plt Count 332, MPV 8.9, Immature Gran % (Auto) 0.400, Neut % (Auto) 52.9, Lymph % (Auto) 31.4, Leslie % (Auto) 10.6 H, Eos % (Auto) 4.0, Baso % (Auto) 0.7, Absolute Neuts (auto) 3.9, Absolute Lymphs (auto) 2.30, Nucleated RBC % 0 09/02/19 08:05: Sodium 142, Potassium 3.5, Chloride 108 H, Carbon Dioxide 29.0, Anion Gap 5, BUN 27 H, Creatinine 3.05 H, Estim Creat Clear Calc 13.77, Est GFR (MDRD) Af Amer 20 L, Est GFR (MDRD) Non-Af 16 L, BUN/Creatinine Ratio 8.9 L, Glucose 80, Calcium 8.4 L Clinical Impression(s) from Imaging Studies Chest X-Ray 08/31/19 15:09 IMPRESSION: Cardiomegaly and CHF. Code Visit Inpatient E&M: 69447 Subs Hosp L2
[2019-09-02 12:06] LABS: Bedside Glucose 81 mg/dL (70-110)
[2019-09-02 17:06] LABS: Bedside Glucose 97 mg/dL (70-110)
[2019-09-02] MEDS: Miconazole-7 Nitrate Cream 1 APPLIC VAGINAL (20:58)
[2019-09-02] MEDS: Zolpidem Tartrate 5 MG Tablet PO ×2 (21:01→22:48)
[2019-09-02] MEDS: CETIRIZINE HCL 10 MG TABLET PO (21:04)
[2019-09-02 21:36] LABS: Bedside Glucose 113 mg/dL (70-110)
[2019-09-03] VITALS (10 sets, daily range): BP systolic 136–162; BP diastolic 60–72; PULSE 81–112; RESP 18–20; TEMP 36.3–36.7; O2SAT 84–100
[2019-09-03] MEDS: Acetaminophen 325 MG Tablet 650 MG PO ×2 (02:43→15:46)
[2019-09-03 06:02] LABS: Absolute Lymphocyte Count 3.14 X10^3/uL (0.83-4.51); Absolute Neutrophil Count 5.1 X10^3/uL (2.0-7.7); Basophil# 0.04 X10^3/uL; Basophil% 0.4 % (0-1); Eosinophils% 3.1 % (0-5); Hematocrit 25.6 % (37-47); Hemoglobin 7.7 g/dL (12.0-15.0); Lymphocyte # 3.14 X10^3/ul (4.0); Lymphocyte % 32.8 % (19-41); Mean Corp Hgb Conc 30.1 g/dL (32-36); Mean Corpuscular Hgb 30.4 pg (27.0-32.0); Mean Corpuscular Volume 101.2 fL (81-99); Monocyte# 0.95 X10^3/uL; Monocyte% 9.9 % (0-10); NRBC Flagged by Analyzer 0 % (0-5); Neutrophil # 5.12 X10^3/uL (2.7-7.7); Neutrophil % 53.5 % (47-70); Platelet Count 350 K/mm3 (150-450); RBC Distribution Width CV 14.6 % (11.6-14.6); RBC Distribution Width SD 53.8 fl (35.1-43.9); Red Blood Count 2.53 M/mm3 (4.2-5.4); White Blood Count 9.6 K/mm3 (4.4-11.0)
[2019-09-03 06:24] LABS: Anion Gap 5 (5-15); BUN 37 mg/dL (7-18); BUN/Creat Ratio 11.9 RATIO (10-20); Calcium,Total 8.6 mg/dL (8.5-10.1); Chloride 105 mmol/L (98-107); EST Glomerular Filtration Rate 16 mL/min (>60); Est Glom Filt Rate - Afr Amer 19 mL/min (>60); Estimated Creatinine Clearance 13.36 ml/min; Glucose 85 mg/dL (74-106); Potassium 3.4 mmol/L (3.5-5.1); Sodium Level 139 mmol/L (136-145)
[2019-09-03 06:35] LABS: Bedside Glucose 85 mg/dL (70-110)
--- NOTE | 2019-09-03 10:45 | PCM.TXEXTCAR ---
- Diet 08/31/19 17:13 Diet: Cardiac/Low Cholesterol Food consistency:: Regular Liquid Consistency:: Regular/Thin Diet: Potassium Restricted Food consistency:: Regular Liquid Consistency:: Regular/Thin - Routine Orders/Code Status O2 Liters per Minute: 2 O2 Frequency: Continuous Keep PO Greater than or Equal to (%): 92 Routine Lab Work: CBC - Mondays, BMP - Tue, Tue, Fridays, - - Vancomycin trough on 09/05/2019 Code Status: Full Code - Wound(s) L side of neck Wound Type: where previous dialysis catheter was removed - Therapies Weight Bearing: Full weight bearing Physical Therapy: Eval and Treat Occupational Therapy: Eval and Treat - Allergies/Procedures Done in Hospital Allergies/Adverse Reactions: Allergies loratadine Allergy (Verified 08/31/19 13:40) Unknown tape Allergy (Uncoded 08/06/19 20:11) Rash Procedures: None - Type of Care/Length of Stay Estimated LOS: Convalescent Care Less Than 30 days Type of Care Needed: Skilled Rehab Potential: Fair Prognosis: Fair - Additional Orders/Day of Discharge Day of Discharge: 09/03/19 - Follow Up Care Primary Care Physician: Citlali Nguyen NP-C [Primary Care Provider] - Within 2 Weeks
--- NOTE | 2019-09-03 10:48 | DS.PCM_ITS ---
Discharge Date and Diagnosis - Problem List Patient Problems: Active and Suspected Problems (Last Reviewed 09/03/19 @ 08:07 by Lou Lawrence) Pulmonary edema (Acute) secondary to missing multiple dialysis sessions Date of Admission: 08/31/19 Date of Discharge: 09/03/19 - Primary Discharge Diagnosis Active and Suspected Problems (Last Reviewed 09/03/19 @ 08:07 by Lou Lawrence) Hyperkalemia (Acute) Pulmonary edema (Acute) secondary to missing multiple dialysis sessions - Secondary Discharge Diagnosis Chronic Problems (Last Reviewed 09/03/19 @ 08:07 by Lou Lawrence) Anemia in chronic kidney disease (Chronic) Morbid obesity (Chronic) Hypertension (Chronic) Hyperlipidemia (Chronic) GERD (gastroesophageal reflux disease) (Chronic) Anxiety and depression (Chronic) DM type 2 causing ESRD (Chronic) ESRD (end stage renal disease) on dialysis (Chronic) Hospital Course and Treatment Imaging Results: Clinical Impression(s) from Imaging Studies Chest X-Ray 08/31/19 15:09 IMPRESSION: Cardiomegaly and CHF. Electronically Signed: Joseph Valencia, at 15:34 EST , Service support , Barb Schwartz, nephrology Operations: - - dialysis cath placement Procedures: Dialysis Summary of Care Provided: The patient is a 69 year old F presents with shortness of breath. Chest x-ray was consistent with pulmonary vascular congestion. Patient had presented to Dr. Bobo's office on the with shortness of breath. Patient was then subsequently admitted with CHF and patient was 80% on room air. Patient was changed over to oxygen at 3 L and was 100%. Patient had not gone to her dialysis over the past 8 days. In the emergency room, patient had potassium of 5.6 though it was hemolyzed which is likely contributing to that being elevated. Patient did well and as tolerated dialysis while she was here. Patient is very debilitated and is a full assist but, unfortunately, patient wishes to go home so patient will be discharged to home with home care in stable condition. Will check a oxygen level to see if patient would require oxygen. Given the fact the patient is nonambulatory, an amatory pulse ox would not be feasible. [] Patient Problems: Active and Suspected Problems (Last Reviewed 09/03/19 @ 08:07 by Lou Lawrence) Pulmonary edema (Acute) secondary to missing multiple dialysis sessions - Physical Exam Vitals/I&O's: Vital Signs Temp Pulse Resp BP Pulse Ox 36.5 C L 88 20 H 146/72 H 97 09/03/19 08:40 09/03/19 08:40 09/03/19 08:40 09/03/19 08:40 09/03/19 08:40 Oxygen Flow Rate (L/min) 2 Oxygen Delivery Method Nasal Cannula Weight: 99.2 kg Body Mass Index (BMI) 42.0 Intake and Output for Last 24 Hours 09/01/19 09/02/19 09/03/19 23:59 23:59 23:59 Intake Total 1220 / 1220 1200 / 1320 240 / 240 Balance 1220 / 1220 1200 / 1320 240 / 240 General: Alert, - - listless. afebrile HEENT: Atraumatic, Normocephalic Neck: No Nodes, Trachea Midline Lungs: Clear to auscultation, Diminished Cardiovascular: Regular rate, Regular Rhythm, Normal S1, Normal S2 Abdomen: Bowel Sounds Present, Soft, Non Tender, Non-Distended, No Hepato- splenomegaly Extremities: No edema, No Calf Tenderness Skin: No rashes, No breakdown Psych/Mental Status: Appropriate, Flat Affect Microbiology Past 72 Hours 08/31/19 20:15 Blood Culture (Wb) - Venous Blood Culture - Preliminary No growth in 48 hours. 08/31/19 20:05 Blood Culture (Wb) - Venous Blood Culture - Preliminary No growth in 48 hours. Laboratory Results 09/02/19 11:56: POC Glucose 81 09/02/19 16:57: POC Glucose 97 09/02/19 20:54: POC Glucose 113 H 09/03/19 05:10: WBC 9.6, RBC 2.53 L, Hgb 7.7 L, Hct 25.6 L, MCV 101.2 H, MCH 30.4, MCHC 30.1 L, RDW Std Deviation 53.8 H, RDW Coeff of Liza 14.6, Plt Count 350, MPV 9.0, Immature Gran % (Auto) 0.300, Neut % (Auto) 53.5, Lymph % (Auto) 32.8, Traverse % (Auto) 9.9, Eos % (Auto) 3.1, Baso % (Auto) 0.4, Absolute Neuts (auto) 5.1, Absolute Lymphs (auto) 3.14, Nucleated RBC % 0 09/03/19 05:10: Sodium 139, Potassium 3.4 L, Chloride 105, Carbon Dioxide 29.0, Anion Gap 5, BUN 37 H, Creatinine 3.10 H, Estim Creat Clear Calc 13.36, Est GFR (MDRD) Af Amer 19 L, Est GFR (MDRD) Non-Af 16 L, BUN/Creatinine Ratio 11.9, Glucose 85, Calcium 8.6 09/03/19 06:30: POC Glucose 85 09/03/19 10:20: Random Vancomycin Pending Current Medications Acetaminophen (Tylenol) 650 mg PO Q6H PRN PRN PRN Reason: Pain Score 1-3/Temp > 100.7 F Last Admin: 09/03/19 02:43 Dose: 650 mg Documented by: Al Hydroxide/Mg Hydroxide (Mylanta Ii) 30 ml PO Q6H PRN PRN PRN Reason: Gastric Burning Amlodipine Besylate (Norvasc) 5 mg PO BID [facility] Last Admin: 09/02/19 21:03 Dose: 5 mg Documented by: Atorvastatin Calcium (Lipitor) 40 mg PO DAILY [facility] Last Admin: 09/02/19 09:04 Dose: 40 mg Documented by: Calcitriol (Rocaltrol) 0.25 mcg PO DAILY [facility] Last Admin: 09/02/19 09:04 Dose: 0.25 mcg Documented by: Cetirizine HCl (Zyrtec) 10 mg PO QHS [facility] Last Admin: 09/02/19 21:04 Dose: 10 mg Documented by: Citalopram Hydrobromide (Celexa) 20 mg PO BID [facility] Last Admin: 09/02/19 21:03 Dose: 20 mg Documented by: Guaifenesin (Mucinex) 600 mg PO BID [facility] Last Admin: 09/02/19 21:08 Dose: 600 mg Documented by: Insulin Human Lispro (Humalog Kwikpen (Bkc)) 0 unit SC [facility]; Protocol Last Admin: 09/03/19 06:38 Dose: Not Given Documented by: Miconazole Nitrate (Monistat 7) 1 applic VAGINAL QHS [facility] Last Admin: 09/02/19 20:58 Dose: 1 applicatio Documented by: Prochlorperazine Edisylate (Compazine Iv) 5 mg IV Q6H PRN PRN PRN Reason: NAUSEA/VOMITING Senna/Docusate Sodium (Senokot-S, Carol-Colace) 2 tablet PO BID PRN PRN PRN Reason: Constipation Zolpidem Tartrate (Ambien (Generic)) 5 mg PO QHS [facility] Last Admin: 09/02/19 22:48 Dose: 5 mg Documented by: Discharge Diet: 6 Cup Fluid Restriction, 2000 mg Sodium Diet Discharge Activity: Return to Normal Activity Call your doctor if you observe: Fever of 101 or Higher, Shortness of breath Home Medications: Medications to take at Discharge Amlodipine Besylate 5 mg PO BID 08/06/19 Atorvastatin Calcium 40 mg PO DAILY 08/06/19 Calcitriol 0.25 mg PO DAILY 08/06/19 Citalopram [Celexa] 40 mg PO DAILY 08/06/19 Clopidogrel Bisulfate [Clopidogrel] 75 mg PO DAILY 08/06/19 Meloxicam 15 mg PO DAILY 08/06/19 Acetaminophen [Tylenol Tablet] 650 mg PO Q6H PRN PRN tab 08/11/19 Cetirizine HCl 10 mg PO QHS 08/31/19 Omeprazole 40 mg PO QHS 08/31/19 Zolpidem Tartrate 10 mg PO QHS 08/31/19 Vancomycin HCl in 5 % Dextrose [Vancomycin 750 mg/250 ml-D5w] 1,000 mg IV X1 #1 plast..bag 09/03/19 Following Prescrptions Were Given to Patient: Vancomycin HCl in 5 % Dextrose [Vancomycin 750 mg/250 ml-D5w] 1,000 mg IV X1 #1 plast..bag Primary Care Physician: Citlali Nguyen NP-C [Primary Care Provider] - Within 2 Weeks Please Follow Up With: [facility] When: Tuesday, Tuesday, Tuesday Disposition: Home with Home Health Minutes spent on discharge:: 35 Patient Condition:: Fair Medical Necessity - Tobacco Use Smoking Status: Former smoker Tobacco Use: Cigarettes Meaningful Use Info Meaningful Use Diagnoses (Choose all that apply): CHF - CHF FOSTER/ARB ordered at discharge?: No Reason FOSTER/ARB not ordered?: Worsening renal dysfunctn Documented LVEF (%): 60 Code Visit Inpatient E&M: 54106 Disch Hosp
--- NOTE | 2019-09-03 10:58 | DCINST_ITS ---
- Discharge Diagnoses Current Active Problems: Current Active and Chronic Problems (Last Reviewed 09/03/19 @ 08:07 by Lou Lawrence) Anemia in chronic kidney disease (Chronic) Morbid obesity (Chronic) Hypertension (Chronic) Hyperlipidemia (Chronic) GERD (gastroesophageal reflux disease) (Chronic) Anxiety and depression (Chronic) Pulmonary edema (Acute) secondary to missing multiple dialysis sessions You will use the following diet at home:: Fluid restricted (specify 2000 mls, 1500 mls) - 1500 Your food should be the consistency of: Regular Discharge Activity: Return to Normal Activity Call your doctor if you observe: Fever of 101 or Higher, Shortness of breath Allergies/Adverse Reactions: Allergies loratadine Allergy (Verified 08/31/19 13:40) Unknown tape Allergy (Uncoded 08/06/19 20:11) Rash Medications to take at Discharge Amlodipine Besylate 5 mg PO BID 08/06/19 Atorvastatin Calcium 40 mg PO DAILY 08/06/19 Calcitriol 0.25 mg PO DAILY 08/06/19 Citalopram [Celexa] 40 mg PO DAILY 08/06/19 Clopidogrel Bisulfate [Clopidogrel] 75 mg PO DAILY 08/06/19 Meloxicam 15 mg PO DAILY 08/06/19 Acetaminophen [Tylenol Tablet] 650 mg PO Q6H PRN PRN tab 08/11/19 Cetirizine HCl 10 mg PO QHS 08/31/19 Omeprazole 40 mg PO QHS 08/31/19 Zolpidem Tartrate 10 mg PO QHS 08/31/19 Vancomycin HCl in 5 % Dextrose [Vancomycin 750 mg/250 ml-D5w] 1,000 mg IV X1 #1 plast..bag 09/03/19 The following prescriptions were given: Vancomycin HCl in 5 % Dextrose [Vancomycin 750 mg/250 ml-D5w] 1,000 mg IV X1 #1 plast..bag Primary Care Physician: Citlali Nguyen NP-C [Primary Care Provider] - Within 2 Weeks Test Results: Test results from this visit will be discussed in further detail at your follow- up appointment, if applicable. Please Follow Up With: [facility] When: Tuesday, Tuesday, Tuesday Proposed Discharge Date: 09/03/19
--- NOTE | 2019-09-03 11:00 | CASEMGMT ---
Patient is active with [facility] in [facility]. SW called [facility] and left a message letting them know when patient was admitted and that she is being discharged today. Taylor AGUILLON
--- NOTE | 2019-09-03 11:07 | PHA.DC.MR ---
Pharmacy Service has performed discharge medication reconciliation for this patient. Home Medications Amlodipine Besylate 5 mg PO BID 08/06/19 Atorvastatin Calcium 40 mg PO DAILY 08/06/19 Calcitriol 0.25 mg PO DAILY 08/06/19 Citalopram [Celexa] 40 mg PO DAILY 08/06/19 Clopidogrel Bisulfate [Clopidogrel] 75 mg PO DAILY 08/06/19 Meloxicam 15 mg PO DAILY 08/06/19 Acetaminophen [Tylenol Tablet] 650 mg PO Q6H PRN PRN tab 08/11/19 Cetirizine HCl 10 mg PO QHS 08/31/19 Omeprazole 40 mg PO QHS 08/31/19 Zolpidem Tartrate 10 mg PO QHS 08/31/19 Vancomycin HCl in 5 % Dextrose [Vancomycin 750 mg/250 ml-D5w] 1,000 mg IV X1 #1 plast..bag 09/03/19 The patient's discharge medication list was reviewed for discrepancies and discrepancies were resolved.
[2019-09-03 11:08] LABS: Vancomycin, Random Level 14.7 ug/mL (0.0-15.0)
--- NOTE | 2019-09-03 11:11 | CASEMGMT ---
Addendum entered by Leslie Whitmore 09/03/19 13:14: Nolan at [facility] aware of referral and pt discharge later today, voices understanding. Nolan is also aware that there is another concentrator in the home, voices understanding. Nolan is aware to call daughter, Michelle, with any questions/concerns, voices understanding. Josselyn RN KALYN Addendum entered by Leslie Whitmore 09/03/19 12:43: Pt does qualify for home oxygen at this time. This RN CM to room and pt states she does have a concentrator at home but it is not hers. This RN CM advised pt the importance of having an order for the home oxygen and that it be set up for her at discharge and pt is agreeable to home oxygen set up at this time. This RN CM provided pt with list of local in-network DME and pt states 'I don't care, just pick one, but they will get me the portable ones(tanks), right?' This RN CM advised her that portable tanks will be ordered as well as the concentrator, voices understanding. Pt would like her daughter, Michelle, contacted for set up of oxygen. Referral faxed to [facility] at this time. This RN CM will notify [place] [facility] via phone of referral as well. Pt is getting set up for dialysis at this time. Pt voices no further questions/concerns/needs at this time. Josselyn RN CM Original Note: Call to [facility] and per rep, pt is current with them for PT at this time. They are aware that pt to be discharged today and ECHO order, d/c summ, and H&P faxed to [facility] at this time. Pt was also already getting vancomycin with dialysis and this RN CM did place call to [facility] per Dr. Wise's request to verify that pt's last dose of vancomycin to be given with dialysis on 09/05/19 and per Lizeth at [facility], they do have the order set up for last dose on 09/05/19 and plan to continue and she is also made aware that pt to have dialysis here then will be there for normal treatment time on 09/05/19, voices understanding. Pt is updated on all at this time and states plan is still to go home with family per previous RN CM notes. Pt is A/Ox4 at this time and states no further concerns/needs at this time. Pt to be tested for home oxygen prior to discharge. Pt does have home oxygen equipment at home but unsure that she has an order for it as it was provided for hospice previously, see previous notes. Pt states is normally bed bound and lives with family who assist with care. Pt states only goes out for dialysis/physician appt's. Josselyn GILBERT CM
[2019-09-03 11:30] LABS: Bedside Glucose 104 mg/dL (70-110)
--- NOTE | 2019-09-03 12:09 | PCM.PN.REN ---
Patient Problems: Active and Suspected Problems (Last Updated 09/03/19 @ 10:56 by Moe Wise DO) Pulmonary edema (Acute) secondary to missing multiple dialysis sessions Subjective: seen on dialysis. Vanco 14.7 redose after dialysis. Attempt fluid removal as tolerated. Challenge TW for rales on exam, dyspnea at rest. Blood cx no growth so far. - Physical Exam Vitals/I&O's: Vital Signs Temp Pulse Resp BP Pulse Ox 97.7 F L 88 20 H 146/72 H 84 09/03/19 08:40 09/03/19 08:40 09/03/19 08:40 09/03/19 08:40 09/03/19 11:20 Oxygen Flow Rate (L/min) [At 0 REST on Room Air] Oxygen Flow Rate (L/min) 2 Oxygen Delivery Method Nasal Cannula Weight: 99.2 kg Body Mass Index (BMI) 42.0 Intake and Output for Last 24 Hours 09/01/19 09/02/19 09/03/19 23:59 23:59 23:59 Intake Total 1220 / 1220 1200 / 1320 440 / 440 Balance 1220 / 1220 1200 / 1320 440 / 440 General: Alert, Oriented x3, Cooperative, - - mild dyspnea Lungs: Rales - bases Cardiovascular: Irregular Rate - afib Abdomen: Bowel Sounds Present, Soft, Non Tender, Non-Distended Extremities: No edema Psych/Mental Status: Normal Affect, Appropriate Microbiology Past 72 Hours 08/31/19 20:15 Blood Culture (Wb) - Venous Blood Culture - Preliminary No growth in 48 hours. 08/31/19 20:05 Blood Culture (Wb) - Venous Blood Culture - Preliminary No growth in 48 hours. Laboratory Results 09/02/19 16:57: POC Glucose 97 09/02/19 20:54: POC Glucose 113 H 09/03/19 05:10: WBC 9.6, RBC 2.53 L, Hgb 7.7 L, Hct 25.6 L, MCV 101.2 H, MCH 30.4, MCHC 30.1 L, RDW Std Deviation 53.8 H, RDW Coeff of Liza 14.6, Plt Count 350, MPV 9.0, Immature Gran % (Auto) 0.300, Neut % (Auto) 53.5, Lymph % (Auto) 32.8, Crowley % (Auto) 9.9, Eos % (Auto) 3.1, Baso % (Auto) 0.4, Absolute Neuts (auto) 5.1, Absolute Lymphs (auto) 3.14, Nucleated RBC % 0 09/03/19 05:10: Sodium 139, Potassium 3.4 L, Chloride 105, Carbon Dioxide 29.0, Anion Gap 5, BUN 37 H, Creatinine 3.10 H, Estim Creat Clear Calc 13.36, Est GFR (MDRD) Af Amer 19 L, Est GFR (MDRD) Non-Af 16 L, BUN/Creatinine Ratio 11.9, Glucose 85, Calcium 8.6 09/03/19 06:30: POC Glucose 85 09/03/19 10:20: Random Vancomycin 14.7 09/03/19 11:11: POC Glucose 104 Current Medications Acetaminophen (Tylenol) 650 mg PO Q6H PRN PRN PRN Reason: Pain Score 1-3/Temp > 100.7 F Last Admin: 09/03/19 02:43 Dose: 650 mg Documented by: Al Hydroxide/Mg Hydroxide (Mylanta Ii) 30 ml PO Q6H PRN PRN PRN Reason: Gastric Burning Amlodipine Besylate (Norvasc) 5 mg PO BID [facility] Last Admin: 09/02/19 21:03 Dose: 5 mg Documented by: Atorvastatin Calcium (Lipitor) 40 mg PO DAILY [facility] Last Admin: 09/02/19 09:04 Dose: 40 mg Documented by: Calcitriol (Rocaltrol) 0.25 mcg PO DAILY [facility] Last Admin: 09/02/19 09:04 Dose: 0.25 mcg Documented by: Cetirizine HCl (Zyrtec) 10 mg PO QHS [facility] Last Admin: 09/02/19 21:04 Dose: 10 mg Documented by: Citalopram Hydrobromide (Celexa) 20 mg PO BID [facility] Last Admin: 09/02/19 21:03 Dose: 20 mg Documented by: Guaifenesin (Mucinex) 600 mg PO BID [facility] Last Admin: 09/02/19 21:08 Dose: 600 mg Documented by: Insulin Human Lispro (Humalog Kwikpen (Bkc)) 0 unit SC [facility]; Protocol Last Admin: 09/03/19 11:13 Dose: Not Given Documented by: Miconazole Nitrate (Monistat 7) 1 applic VAGINAL QHS [facility] Last Admin: 09/02/19 20:58 Dose: 1 applicatio Documented by: Prochlorperazine Edisylate (Compazine Iv) 5 mg IV Q6H PRN PRN PRN Reason: NAUSEA/VOMITING Senna/Docusate Sodium (Senokot-S, Carol-Colace) 2 tablet PO BID PRN PRN PRN Reason: Constipation Zolpidem Tartrate (Ambien (Generic)) 5 mg PO QHS [facility] Last Admin: 09/02/19 22:48 Dose: 5 mg Documented by: Medical Necessity - Tobacco Use Smoking Status: Former smoker Tobacco Use: Cigarettes Assessment/Plan All Active Problems (Last Updated 09/03/19 @ 10:56 by Moe Wise DO) Problem with dialysis access (Acute) MRSA bacteremia (Acute) Hyperkalemia (Ruled-out) Pulmonary edema (Acute) Sepsis (Resolved) 1. ESRD dialysis today. Lines reversed. Fluid removal as tolerated for SOB 4. MRSA line sepsis 08/06/2019 with incomplete course of antibx due to noncompliance with dialysis. Vanco x1 after dialysis today 5. Pulmonary edema UF as tolerated, CHallenge TW 6. Anemia GWENDOLYN on dialysis 7. Debilitation declines ECF placement
[2019-09-03] MEDS: Epoetin Alfa epbx 10,000 UNITS/ML 10000 UNIT IV (15:17)
[2019-09-03] MEDS: 0.9% Saline Lock 10 ML Syringe IV (15:45)
[2019-09-03] MEDS: guaiFENesin 600 MG Tablet PO (16:22)
[2019-09-03] MEDS: Atorvastatin Calcium 40 MG Tablet PO (16:22)
[2019-09-03] MEDS: amLODIPine 5 MG Tablet PO (16:22)
[2019-09-03] MEDS: Citalopram 20 MG Tablet PO (16:22)
[2019-09-03] MEDS: Calcitriol 0.25 MCG Capsule PO (16:23)
[2019-09-03 16:50] LABS: Bedside Glucose 74 mg/dL (70-110)
--- NOTE | 2019-09-03 17:23 | DIALYSIS ---
1600-HD x 3 hours complete. Tolerated tx well. Ran on 3k bath. UF of 2000ml. Used left chest wall catheter. Cathflo removed from both ports prior to starting tx. Arterial port still has a tight pull. Lines reversed during tx. Dr. Schwartz is aware. Catheter closed with heparin per fill volume. Report was given to VLADIMIR Steele.
== END 2019-09-03 18:02 | disposition home or self-care (01) | DRG 291 ==
LOC: ED 14:22 → PCU 09-01 07:32
PROVIDERS: Internal Medicine; Internal Medicine Nephrology; Admitting Provider Internal Medicine; Emergency Provider Emergency Medicine; PCP Nurse Practitioner Family
DX: I13.2 Hypertensive heart and chronic kidney disease with heart failure and with stage 5 chronic kidney disease, or end stage renal disease (principal); N18.6 End stage renal disease; A41.02 Sepsis due to Methicillin resistant Staphylococcus aureus; I50.31 Acute diastolic (congestive) heart failure; T80.211A Bloodstream infection due to central venous catheter, initial encounter; Z68.41 Body mass index [BMI] 40.0-44.9, adult; T82.9XXA Unspecified complication of cardiac and vascular prosthetic device, implant and graft, initial encounter; E87.5 Hyperkalemia; Z91.15 Patient's noncompliance with renal dialysis; D63.1 Anemia in chronic kidney disease; E66.01 Morbid (severe) obesity due to excess calories; Z99.2 Dependence on renal dialysis; E11.22 Type 2 diabetes mellitus with diabetic chronic kidney disease; R09.02 Hypoxemia; E78.5 Hyperlipidemia, unspecified; K21.9 Gastro-esophageal reflux disease without esophagitis; F32.9 Major depressive disorder, single episode, unspecified; F41.9 Anxiety disorder, unspecified
CPT/HCPCS: 36415; 71046; 80048; 80053; 80202; 82962; 84100; 84484; 85025; 85027; 85610; 85730; 87040; 90937; 93005; 94002; 94667; 94668; 97162; 97166; 99251; 99285; J2997; J7030; J7040; J7050; A4216; G0257; G0463; J1940; Q5106

== ENCOUNTER 2019-09-10 12:40 | Observation (INO) | payer MEDICARE, MEDICAID, SELFPAY ==
[2019-09-10] VITALS (7 sets, daily range): BP systolic 106–162; BP diastolic 59–76; PULSE 75–88; RESP 16–20; TEMP 36.3–36.7; O2SAT 96–99; BMI 40.3; BMI 40.5; BMI 40.6
[2019-09-10 12:50] LABS: Bedside Glucose 85 mg/dL (70-110)
[2019-09-10] MEDS: Dextrose 5%/0.9% NaCl 1,000 ML 100 ML IV ×2 (13:53→23:03)
[2019-09-10] MEDS: 0.9% Saline Lock 10 ML Syringe IV (13:57)
--- NOTE | 2019-09-10 14:56 | PCM.CONS.R ---
Consultation - Renal 09/10/19 PCP/ Referring MD: Requesting physician: [] Primary care physician: Citlali Nguyen, MATTIC Reason for Consultation:: ESRD HD MWF - History of Present Illness History of Present Illness: The patient is a 69 year old morbidly obese F bedridden from [facility] amitted as observation for hypoglycemia sugar 45 by EMS with confusion. She was taking glipizide by accident. 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 She was discharged from [facility] on 09/03 after treated for SOB, hyperkalemia due to noncompliance with dialysis. She and her dtr states she has been compliant with her dialysis since discharge on 09/03. She was treated for MRSA line sepsis prior to last hospitalization. She did not receive her iv vanco that was ordered with her dialysis because she did not attend dialysis as prescribed. Blood culture from hospital on 08/31 was negative Last vanco dose 09/03 at the hospital prior to discharge. - Allergies Allergies: Allergies loratadine Allergy (Verified 08/31/19 13:40) Unknown tape Allergy (Uncoded 08/06/19 20:11) Rash - Current Medications Current Medications: Current Medications Acetaminophen (Tylenol) 650 mg PO Q6H PRN PRN PRN Reason: Pain Score 1-10/Temp > 100.7 F Amlodipine Besylate (Norvasc) 5 mg PO BID [facility] Citalopram Hydrobromide (Celexa) 40 mg PO DAILY [facility] Clopidogrel Bisulfate (Plavix) 75 mg PO DAILY [facility] Dextrose (D50w Syringe) 0 gm IV X1 PRN; Protocol PRN Reason: Hypoglycemia Glucagon () 1 mg IM .X1 PRN PRN Reason: Hypoglycemia Heparin Sodium (Porcine) (Heparin Na) 5,000 unit SC Q12 [facility] Dextrose/Sodium Chloride (Dextrose 5%/0.9% Nacl) 1,000 mls @ 100 mls/hr IV .Q10H [facility] Last Admin: 09/10/19 13:53 Dose: 100 mls/hr Documented by: Insulin Human Lispro (Humalog Kwikpen (Bkc)) 0 unit SC Q4 [facility]; Protocol Last Admin: 09/10/19 14:55 Dose: Not Given Documented by: Pantoprazole Sodium (Protonix) 40 mg PO QHS [facility] Sodium Chloride () 10 - 40 ml IV UD PRN PRN Reason: SALINE FLUSH Last Admin: 09/10/19 13:57 Dose: 10 ml Documented by: Zolpidem Tartrate (Ambien (Generic)) 5 mg PO QHS [facility] - Past Medical History Past Medical History (Chronic Problems): Chronic Problems (Last Updated 09/03/19 @ 10:56 by Moe Wise DO) Anemia in chronic kidney disease (Chronic) Morbid obesity (Chronic) Hypertension (Chronic) Hyperlipidemia (Chronic) GERD (gastroesophageal reflux disease) (Chronic) Anxiety and depression (Chronic) DM type 2 causing ESRD (Chronic) ESRD (end stage renal disease) on dialysis (Chronic) - Past Surgical History Surgical History: - - TDC placement - Social History Smoking Status: Former smoker - Family History Maternal History Items: - - No known kidney disease Review of Systems Constitutional: Reports: Weakness - chronic. Denies: Anorexia, Chills, Fever Cardiovascular: Denies: Chest Pain Respiratory: Reports: - - home oxygen. Denies: Cough, Shortness of Breath Gastrointestinal: Reports: Nausea, Vomiting Neurological: Reports: - - weakness Hematologic/ Lymphatic: Reports: Anemia - Physical Exam Vitals/I&O's: Vital Signs Temp Pulse Resp BP Pulse Ox 97.4 F L 86 16 162/76 H 99 09/10/19 13:50 09/10/19 13:50 09/10/19 13:50 09/10/19 13:50 09/10/19 13:50 Oxygen Flow Rate (L/min) 2 Oxygen Delivery Method Nasal Cannula Weight: 100.6 kg Body Mass Index (BMI) 40.5 General: Alert, Oriented x3, Cooperative, No apparent distress Lungs: Clear to auscultation, Diminished Cardiovascular: Irregular Rate, Murmur Abdomen: Bowel Sounds Present, Soft, Non Tender, Distended, Obese Extremities: No edema Psych/Mental Status: Normal Affect, Appropriate, Alert and oriented to time, place, person, mood and affect Laboratory Results 09/10/19 12:41: POC Glucose 85 Current Medications Acetaminophen (Tylenol) 650 mg PO Q6H PRN PRN PRN Reason: Pain Score 1-10/Temp > 100.7 F Amlodipine Besylate (Norvasc) 5 mg PO BID [facility] Citalopram Hydrobromide (Celexa) 40 mg PO DAILY [facility] Clopidogrel Bisulfate (Plavix) 75 mg PO DAILY [facility] Dextrose (D50w Syringe) 0 gm IV X1 PRN; Protocol PRN Reason: Hypoglycemia Glucagon () 1 mg IM .X1 PRN PRN Reason: Hypoglycemia Heparin Sodium (Porcine) (Heparin Na) 5,000 unit SC Q12 [facility] Dextrose/Sodium Chloride (Dextrose 5%/0.9% Nacl) 1,000 mls @ 100 mls/hr IV .Q10H [facility] Last Admin: 09/10/19 13:53 Dose: 100 mls/hr Documented by: Insulin Human Lispro (Humalog Kwikpen (Bkc)) 0 unit SC Q4 [facility]; Protocol Last Admin: 09/10/19 14:55 Dose: Not Given Documented by: Pantoprazole Sodium (Protonix) 40 mg PO QHS [facility] Sodium Chloride () 10 - 40 ml IV UD PRN PRN Reason: SALINE FLUSH Last Admin: 09/10/19 13:57 Dose: 10 ml Documented by: Zolpidem Tartrate (Ambien (Generic)) 5 mg PO QHS [facility] Assessment/Plan All Active Problems (Last Updated 09/03/19 @ 10:56 by Moe Wise DO) Noncompliance of patient with renal dialysis (Acute) Problem with dialysis access (Acute) MRSA bacteremia (Acute) Hyperkalemia (Ruled-out) Pulmonary edema (Acute) Sepsis (Resolved) 1 ESRD HD today and [facility] Dr. 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 Hypoglycemia due to oral hypoglycemic agents. BS stable 3. anemia hgb 8.9 on 09/10/19 4. recent MRSA line sepsis s/p new TDC. Blood cx no growth on 08/30. 5. Confusion resolve, MS at baseline 6. Debilitation due to DJD, mostly bedridden
--- NOTE | 2019-09-10 15:02 | HP.PCM_ITS ---
History of Present Illness Date of Admission: 09/10/19 Chief Complaint: hypoglycemia The patient is a 69 year old F with pmhx as above most notably for recent infected hemodialysis cath completed outpatient vancomycin with dialysis, who was transferred to [facility] from [facility] where she presented for hypoglycemia. She was feeling numbness and tingling, difficulty speaking, and sweats. She was found to have a blood sugar of 45. She had accidentally taken a diabetic medication that she used to be on. She somehow filled a glipizide prescription despite not being on this any time recently. She normally takes no diabetic medications. She took one dose of glipizide 10 mg. She was given oral glucose by the squad, then D50 in the ER. Here her blood sugar is 85. She currently feels like her normal self and has no complaints. She was due for dialysis today with Dr. Schwartz. [] Past Medical History Past Medical History (Chronic Problems): Chronic Problems (Last Updated 09/03/19 @ 10:56 by Moe Wise DO) Anemia in chronic kidney disease (Chronic) Morbid obesity (Chronic) Hypertension (Chronic) Hyperlipidemia (Chronic) GERD (gastroesophageal reflux disease) (Chronic) Anxiety and depression (Chronic) DM type 2 causing ESRD (Chronic) ESRD (end stage renal disease) on dialysis (Chronic) Medical History: Medical History (Last Updated 09/03/19 @ 10:56 by Moe Wise DO) Problem with dialysis access (Acute) T82.898A MRSA bacteremia (Acute) R78.81 August of 2019.....last day of Vanco is 2/5 Anemia in chronic kidney disease (Chronic) N18.9, D63.1 Hyperkalemia (Ruled-out) E87.5 Morbid obesity (Chronic) E66.01 Hypertension (Chronic) I10 Hyperlipidemia (Chronic) E78.5 GERD (gastroesophageal reflux disease) (Chronic) K21.9 Anxiety and depression (Chronic) F41.9, F32.9 Pulmonary edema (Acute) J81.1 secondary to missing multiple dialysis sessions DM type 2 causing ESRD (Chronic) E11.22, N18.6 ESRD (end stage renal disease) on dialysis (Chronic) N18.6, Z99.2 Sepsis (Resolved) A41.9 Diet-controlled diabetes mellitus E11.9 ESRD (end stage renal disease) N18.6 HTN (hypertension) I10 Allergies loratadine Allergy (Verified 08/31/19 13:40) Unknown tape Allergy (Uncoded 08/06/19 20:11) Rash Home Medications: Ambulatory Orders Medication Instructions Recorded Amlodipine Besylate 5 mg PO BID 08/06/19 Atorvastatin Calcium 40 mg PO DAILY 08/06/19 Calcitriol 0.25 mg PO DAILY 08/06/19 Citalopram [Celexa] 40 mg PO DAILY 08/06/19 Clopidogrel Bisulfate [Clopidogrel] 75 mg PO DAILY 08/06/19 Meloxicam 15 mg PO DAILY 08/06/19 Acetaminophen [Tylenol Tablet] 650 mg PO Q6H PRN PRN tab 08/11/19 Cetirizine HCl 10 mg PO QHS 08/31/19 Omeprazole 40 mg PO QHS 08/31/19 Zolpidem Tartrate 10 mg PO QHS 08/31/19 Vancomycin HCl in 5 % Dextrose 1,000 mg IV X1 #1 plast..bag 09/03/19 [Vancomycin 750 mg/250 ml-D5w] Surgical History: - - TDC placement Psychiatric History: Anxiety, Depression Lives: With Family Smoking Status: Former smoker Tobacco Use: Non-smoker Alcohol: None Drugs: None - *Family History Maternal History Items: - - No known kidney disease Paternal History Items: No pertinent history Review of Systems Constitutional: Denies: Chills, Fever, Weight Change HEENT: Denies: Head Aches, Sinus Congestion, Sinus Drainage Cardiovascular: Denies: Chest Pain, Palpitations Respiratory: Denies: Cough, Shortness of breath at rest, Sputum production Gastrointestinal: Denies: Abdominal Pain, Nausea, Vomiting Genitourinary: Denies: Dysuria Musculoskeletal: Denies: Joint Pain, Joint Tenderness Skin: Reports: - - sweats. Denies: Rash, Wounds Neurological: Reports: Numbness, Tingling. Denies: Focal weakness Psychiatric: Denies: Anxiety, Depression, Homicidal Ideations, Suicidal Ideations Hematologic/ Lymphatic: Denies: Easy Bruising, Easy Bleeding VTE Information - Inpt Only VTE Present on Admission: No VTE Mechan Device Prophylaxis: None VTE Pharm Prophylaxis ordered?: Yes - Physical Exam Vitals/I&O's: Vital Signs Temp Pulse Resp BP Pulse Ox 97.4 F L 80 16 162/76 H 99 09/10/19 13:50 09/10/19 14:49 09/10/19 13:50 09/10/19 13:50 09/10/19 13:50 Oxygen Flow Rate (L/min) 2 Oxygen Delivery Method Nasal Cannula Weight: 221 lb 12.56 oz Body Mass Index (BMI) 40.5 General: Alert, Oriented x3, Cooperative HEENT: Atraumatic, PERRLA, EOMI, Normocephalic Neck: Supple, No JVD, Negative Carotid Bruits Lungs: Clear to auscultation, Normal air movement Cardiovascular: Regular rate, No murmurs Abdomen: Bowel Sounds Present, Soft, Non Tender Extremities: No edema, Capillary Refill Less than 3 Seconds Skin: No rashes, No breakdown Musculoskeletal: No Tenderness to Palpation of Joints or Extremities Neurological: Cranial nerves II-XII grossly intact Psych/Mental Status: Normal Affect, Appropriate, Alert and oriented to time, place, person, mood and affect Laboratory Results 09/10/19 12:41: POC Glucose 85 Current Medications Acetaminophen (Tylenol) 650 mg PO Q6H PRN PRN PRN Reason: Pain Score 1-10/Temp > 100.7 F Amlodipine Besylate (Norvasc) 5 mg PO BID [facility] Citalopram Hydrobromide (Celexa) 40 mg PO DAILY [facility] Clopidogrel Bisulfate (Plavix) 75 mg PO DAILY [facility] Dextrose (D50w Syringe) 0 gm IV X1 PRN; Protocol PRN Reason: Hypoglycemia Glucagon () 1 mg IM .X1 PRN PRN Reason: Hypoglycemia Heparin Sodium (Porcine) (Heparin Na) 5,000 unit SC Q12 [facility] Dextrose/Sodium Chloride (Dextrose 5%/0.9% Nacl) 1,000 mls @ 100 mls/hr IV .Q10H MARTHA Last Admin: 09/10/19 13:53 Dose: 100 mls/hr Documented by: Insulin Human Lispro (Humalog Kwikpen (Bkc)) 0 unit SC Q4 [facility]; Protocol Last Admin: 09/10/19 14:55 Dose: Not Given Documented by: Pantoprazole Sodium (Protonix) 40 mg PO QHS [facility] Sodium Chloride () 10 - 40 ml IV UD PRN PRN Reason: SALINE FLUSH Last Admin: 09/10/19 13:57 Dose: 10 ml Documented by: Zolpidem Tartrate (Ambien (Generic)) 5 mg PO QHS [facility] Assessment/Plan All Active Problems (Last Updated 09/03/19 @ 10:56 by Moe Wise DO) Noncompliance of patient with renal dialysis (Acute) Problem with dialysis access (Acute) MRSA bacteremia (Acute) Hyperkalemia (Ruled-out) Pulmonary edema (Acute) Sepsis (Resolved) 1. Hypoglycemia 2/2 accidental use of glipizide - on d5 0.9%NaCl now. q4h glucometry. 2. ESRD - dialysis per dr. Schwartz. 3. vaginal candidiasis - miconazole topical 4. GERD - protonix 5. Recent MRSA bacteremia - completed outpatient IV vanco 6. Anemia of chronic disease - 8.9. stable 7. Insomnia, anxiety - ambien, celexa 8. HTN - stable DVT ppx: heparin DC planning: home if glucose stable overnight This patient was seen by Franki Patel PA-C under the supervision of Dr. Talley.
--- NOTE | 2019-09-10 16:24 | NURSING ---
this RN taking over care at this time
[2019-09-10] MEDS: Epoetin Alfa epbx 10,000 UNITS/ML 10000 UNIT SC (17:19)
[2019-09-10 17:25] LABS: Bedside Glucose 144 mg/dL (70-110)
[2019-09-10] MEDS: Acetaminophen 325 MG Tablet 650 MG PO (18:34)
[2019-09-10] MEDS: Heparin 10,000 UNITS/10 ML Vial 3800 UNITS IV (20:45)
--- NOTE | 2019-09-10 21:00 | DIALYSIS ---
hemodialysis x 3 hours, -3000ml off. Stable t/o. Tolerated well. CVC closed with heparin. See Dialysis flowsheet for details. Report to Samantha GILBERT at bedside.
[2019-09-10] MEDS: Heparin Injection (Vial) 5,000 UNIT/ML VIAL 5000 UNIT SC (22:00)
[2019-09-10] MEDS: Menthol/Lanolin/Calamine/Znox 113 GM Tube 1 APPLIC TOPICAL (22:00)
[2019-09-10] MEDS: Miconazole-7 Nitrate Cream 1 APPLIC VAGINAL (22:00)
--- NOTE | 2019-09-10 22:00 | NURSING ---
PT SITTING UP IN BED ( FAR SHE IS ABLE TO TOLERATE) EATING COTTAGE CHEESE AND BEGAN TO WRETCH AND HAVE DIFFICULTY BREATHING. THIS RN PRESSED AGAINST HER BACK TO [facility] TO GET MORE COTTAGE CHEESE OUT OF HER MOUTH. PT THEN BEGAN COUGHING AND CONTINUED TO WRETCH. AFTER SEVERAL MINUTES WITH EMOTIONAL SUPPORT AND ENC TO BREATH PROPERLY PT'S COUGHING DECREASED, BUT DID NOT RESOLVE COMPLETELY. PER PROTOCOL, PT NOW NPO UNTIL SPEECH EVAL.
[2019-09-10 22:20] LABS: Bedside Glucose 116 mg/dL (70-110)
--- NOTE | 2019-09-10 23:00 | NURSING ---
PT CONTINUES TO HAVE PERSISTENT COUGHING. SPO2 SATS REMAIN STABLE. WILL CONTINUE TO MONITOR.
[2019-09-11] VITALS (7 sets, daily range): BP systolic 154–173; BP diastolic 59–77; PULSE 75–109; RESP 18; TEMP 36.8; O2SAT 98–99
[2019-09-11] MEDS: Ketorolac 15 MG/ML Vial IM (01:22)
[2019-09-11] MEDS: Insulin Lispro 100 UNIT/ML INSULN.PEN SC (01:35)
[2019-09-11 02:46] LABS: Bedside Glucose 161 mg/dL (70-110)
[2019-09-11 06:15] LABS: Bedside Glucose 111 mg/dL (70-110)
[2019-09-11] MEDS: Menthol/Lanolin/Calamine/Znox 113 GM Tube 1 APPLIC TOPICAL ×2 (06:22→15:14)
[2019-09-11] MEDS: Nystatin Powder 15gm Bottle 1 APPLIC TOPICAL ×2 (06:22→15:13)
--- NOTE | 2019-09-11 07:10 | RAD_ITS ---
STUDY: X-RAY CHEST REASON FOR EXAM: Female, 69 years old. Aspiration, cough, hypoglycemia TECHNIQUE: Single AP portable view of the chest. COMPARISON: Comparison is made with prior study dated August 31, 2019. FINDINGS: A left-sided dialysis catheter is seen with the tip at the junction of the left brachiocephalic vein and superior vena cava. The vascular congestion has resolved. Minimal increased markings are seen at the lung bases suggestive of atelectasis. There is no demonstrated pleural abnormality. There is moderate cardiac enlargement. Normal mediastinum and magalie. Normal visualized pulmonary arteries. There is atherosclerotic calcification of the aortic arch with tortuosity. Normal visualized thoracic spine. Normal visualized ribs, clavicles, and shoulders. There is no demonstrated abnormality of the visualized soft tissue structures of the upper abdomen. RAD/Chest 1 View (Portable) IMPRESSION: Cardiomegaly. Mild increased markings at the lung bases suggestive of atelectasis. Electronically Signed: Joseph Valenica, at 14:33 EST , Service support ,
[2019-09-11 07:22] LABS: Anion Gap 5 (5-15); BUN 30 mg/dL (7-18); BUN/Creat Ratio 13.8 RATIO (10-20); Calcium,Total 8.1 mg/dL (8.5-10.1); Chloride 107 mmol/L (98-107); Creatinine, Serum 2.17 mg/dL (0.55-1.02); EST Glomerular Filtration Rate 24 mL/min (>60); Est Glom Filt Rate - Afr Amer 29 mL/min (>60); Estimated Creatinine Clearance 19.08 ml/min; Glucose 118 mg/dL (74-106); Potassium 3.6 mmol/L (3.5-5.1); Sodium Level 138 mmol/L (136-145)
--- NOTE | 2019-09-11 08:29 | EKG12_ITS ---
Test Reason : Blood Pressure : / mmHG Vent. Rate : 103 BPM Atrial Rate : 117 BPM P-R Int : 000 ms QRS Dur : 086 ms QT Int : 378 ms P-R-T Axes : 000 101 033 degrees QTc Int : 495 ms Atrial fibrillation Low voltage QRS Abnormal ECG When compared with ECG of 31-AUG-2019 14:03, Atrial fibrillation has replaced Sinus rhythm Confirmed by RICK SANDOVAL ([id number]), make up editor DARRIUS FOSTER ([id number]) on 09/17/2019 3:58:37 PM Referred By: WILD Confirmed By:RICK SANDOVAL
--- NOTE | 2019-09-11 08:31 | STEWCON_ITS ---
Reason For Study: ATRIAL FIB/FLUTTER Stress Results Protocol: Dobutamine Stress Echo With Definity Maximum Predicted HR: 150 bpm Target HR: 128 bpm % Maximum Predicted HR: 95 % DurationHeart Rate Stage (mm:ss) (bpm) BP Dose Comment BASELINE 97 167/77 7 CC DEFINITY FOR TEST STAGE 1 3:00 106 174/7110.00 STAGE 2 2:18 142 174/7120.00 RECOVERY 99 125/60 Stress Duration: 5:18 mm:ss Maximum Stress HR: 142 bpm Baseline Echocardiogram Findings The estimated ejection fraction is 65 %. Stress Echo Wall motion Data Resting WM Intermediate WM Stress WM Resting Wall Motion Wall Motion Stress No regional wall motion No regional wall motion abnormalities noted. abnormalities noted. EKG Data Atrial fibrillation. The patient was titrated from 10 mcg to a maximum of 20 mcg of dobutamine during the stress. The maximum heart rate attained was 146 beats per minute. This was 97% of maximum predicted heart rate. At peak infusion, upsloping ST changes only were noted, which did not meet the criteria for ischemia. No clinical angina was noted. Interpretation Summary The estimated ejection fraction is 65 %. Normal, adequate, dobutamine echocardiogram. Negative for ischemia by EKG and echocardiographic criteria. No anginal symptoms noted. Baseline atrial fibrillation with rare PVCs during infusion. Appropriate blood pressure response to dobutamine. Test terminated due to the attainment of target heart rate. Final LVEF is 75%. Decreased sensitivity due to baseline atrial fibrillation, and difficult echo windows requiring Definity enhancement. Patient tolerated the procedure well. No complications. The study was technically difficult. Contrast injection was performed. Ordering Physician: Ritchie Talley Referring Physician: Loki Ozuna MD Performed By: Lou Morales, VICKI, RVT
--- NOTE | 2019-09-11 08:55 | PCM.CONS.C ---
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 The patient states that she has a history of atrial fibrillation and believes she was on a blood thinner but she is unclear as to which one it was. In addition she states that she has previous stents although she is unsure whether it is in her legs or in her heart. She cannot recall if she has had a heart catheterization. Apparently patient was represcribed a diabetic medication which have been held for some time and began taking it causing what appears to be symptoms of hypoglycemia. She went to [facility] yesterday with confusion, sweats, slurred speech, and her glucose was found to be 45. Patient was transferred to [facility] for medical therapy. Upon arrival she was in normal sinus rhythm, and was asymptomatic from a cardiac standpoint. At approximately 6:04 AM this morning telemetry detected the patient developed atrial fibrillation with rapid ventricular response. She denies any chest pain, angina, prior to or subsequent to her atrial fibrillation, and is hemodynamically stable and resting comfortably. She cannot feel any palpitations in her chest but does complain of pounding in her head which may be due to her atrial fibrillation. Patient is bedbound and has difficulty with weakness on her left side for unknown reasons. It is unclear whether she has had a previous stroke or whether this is due to musculoskeletal back pain. She has been compliant with her medications. She underwent an echocardiogram on 08/09/2019 which showed intact ejection fraction of 65% and RVSP of 50 mmHg. At that time she was in normal sinus rhythm. Her EKG shows atrial fibrillation with rapid ventricular response of 103 bpm, low voltage, no acute changes, no electrical alternans noted.] Past Medical History Allergies/Adverse Reactions: Allergies loratadine Allergy (Verified 08/31/19 13:40) Unknown tape Allergy (Uncoded 08/06/19 20:11) Rash Home Medications: Ambulatory Orders Medication Instructions Recorded Amlodipine Besylate 5 mg PO BID 08/06/19 Atorvastatin Calcium 40 mg PO DAILY 08/06/19 Calcitriol 0.25 mg PO DAILY 08/06/19 Citalopram [Celexa] 40 mg PO DAILY 08/06/19 Clopidogrel Bisulfate [Clopidogrel] 75 mg PO DAILY 08/06/19 Meloxicam 15 mg PO DAILY 08/06/19 Acetaminophen [Tylenol Tablet] 650 mg PO Q6H PRN PRN tab 08/11/19 Cetirizine HCl 10 mg PO QHS 08/31/19 Omeprazole 40 mg PO QHS 08/31/19 Zolpidem Tartrate 10 mg PO QHS 08/31/19 Nystatin Powder [Mycostatin Powder] 1 applic TOPICAL TID bottle 09/11/19 Past Medical History (Chronic Problems): Chronic Problems (Last Updated 09/03/19 @ 10:56 by Moe Wise DO) Anemia in chronic kidney disease (Chronic) Morbid obesity (Chronic) Hypertension (Chronic) Hyperlipidemia (Chronic) GERD (gastroesophageal reflux disease) (Chronic) Anxiety and depression (Chronic) DM type 2 causing ESRD (Chronic) ESRD (end stage renal disease) on dialysis (Chronic) Surgical History: - - TDC placement Psychiatric History: Anxiety, Depression - *Family History Maternal History Items: - - No known kidney disease Paternal History Items: No pertinent history Lives: With Family Smoking Status: Former smoker Tobacco Use: Non-smoker Alcohol: None Drugs: None Review of Systems - Review of Systems General: Denies: Fever, Night Sweats, Fatigue Cardiovascular: Denies: Chest Discomfort, Shortness of Breath, Orthopnea, PND, Peripheral Edema, Palpitations, Lightheadedness, Dizziness, Near Syncope, Syncope Respiratory: Denies: Cough, Sputum Production, Hemoptysis Gastrointestinal: Denies: Hematemesis, Hematochezia, Melena Genitourinary: Denies: Dysuria, Hematuria Skin: Denies: Rash Subjectve: Patient laying in bed on her left side, no acute distress. Objective: Vital Signs Temp Pulse Resp BP Pulse Ox 98.3 F 109 H 18 167/61 H 99 09/11/19 05:49 09/11/19 07:06 09/11/19 05:49 09/11/19 05:49 09/11/19 05:49 Oxygen Flow Rate (L/min) 2 Oxygen Delivery Method Nasal Cannula Weight: 217 lb 9.54 oz Body Mass Index (BMI) 40.5 Intake and Output for Last 24 Hours 09/09/19 09/10/19 09/11/19 23:59 23:59 23:59 Intake Total 1036.67 / 1276.67 1220 / 1220 Output Total 3000 / 3000 100 / 100 Balance -1963.33 / -1723.33 1120 / 1120 General: Awake, Alert, Oriented x 3 HEENT: PERRL, EOMI, Sclera Non Icteric Neck: Supple, Good ROM, No Lymph Node Enlargement Lungs: Clear to auscultation Cardiovascular: Irregular Rhythm, Normal S2, No Rubs, No Gallops Murmur Murmur: Grade 2/6, Holosystolic Vascular: No Carotid Bruits, Normal Femoral Pulses, Normal Radial Pulses, Normal Dorsalis Pedal Pulse, Normal Posterior Tibial Pulses Abdomen: Bowel Sounds Present, Soft, Non Tender, No HSM, No Organomegaly Extremities: No Cyanosis, No Clubbing, No edema Neurological: No Focal Motor or Sensory Deficit 09/11/19 06:25: Sodium 138, Potassium 3.6, Chloride 107, Carbon Dioxide 26.0, Anion Gap 5, BUN 30 H, Creatinine 2.17 H, Est GFR (MDRD) Af Amer 29 L, Est GFR (MDRD) Non-Af 24 L, BUN/Creatinine Ratio 13.8, Glucose 118 H, Calcium 8.1 L Rhythm: As above EKG: As above ECHO: As above Stress Test: Pending Cardiac Cath: PCI: CT Surgery: Holter monitor: EPS: PPM: CXR: Chest CT Scan: Assessment/Plan 1. Atrial fibrillation: The patient developed atrial fibrillation this morning at around 6:04 AM and is asymptomatic from an atrial fibrillation standpoint. She had no chest pain prior to or subsequent to her atrial fibrillation. It is unclear whether the patient has any [place] coronary artery disease or whether she is missed remembering her previous catheterization with peripheral vascular stenting. She states that it took place here at [facility] although we have no records of either peripheral or coronary intervention in our computer. Patient's most recent echocardiogram in August 2019 showed intact LV function with an EF of 65% and at least moderate pulmonary pretension with an RVSP of 50 mmHg. I recommended the patient undergo a dobutamine echocardiogram to determine if she has any concomitant coronary ischemia that may be contributing to her atrial fibrillation. If that is grossly abnormal, the patient may require diagnostic coronary angiogram to evaluate her coronary arteries. If she has no significant ischemia however I would recommend rate control medications with Coreg 3.125 mg p.o. twice daily titrating up to a maximum 25 mg p.o. twice daily. In addition she will most likely require lifelong anticoagulation given her paroxysmal atrial fibrillation and at least moderate pulmonary hypertension to avoid DVT and pulmonary embolus. In addition I would recommend checking a TSH and T4. Would not recommend repeat echocardiogram as the patient just had one less than 1 month ago, and has been tolerating dialysis without difficulty. 2. Hyperlipidemia: Would recommend obtaining a vascular profile to complete her cardiac risk profile. 3. Discussed with Dr. Rika Westbrook and Franki Patel. Thank you very much for the opportunity to participate in the cardiac care of your patient. Consultation time took place between 830 and 9:02 AM. Code Visit Inpatient E&M: 09040 Init Hosp L2
[2019-09-11] MEDS: Dextrose 5%/0.9% NaCl 1,000 ML 50 ML IV (09:00)
[2019-09-11 09:34] LABS: Cholesterol 94 mg/dL (200); High Density Lipoprotein 46 mg/dL; Thyroid Stim Hormone (TSH) 1.86 uIU/mL (0.358-3.74); Triglycerides 67 mg/dL; Very Low Density Lipoprotein 13 mg/dL (5-40)
--- NOTE | 2019-09-11 10:34 | PCM.DC ---
- Discharge Diagnoses Current Active Problems: Current Active and Chronic Problems (Last Updated 09/03/19 @ 10:56 by Moe Wise DO) Atrial fibrillation (Acute) Pulmonary hypertension (Acute) You will use the following diet at home:: Cardiac, Fluid restricted (specify 2000 mls, 1500 mls) - 1999, Renal (restricted protein/sodium) Your food should be the consistency of: Regular Your liquids should be the consistency of: Regular/Thin Discharge Activity: Return to Normal Activity, May Not Drive Call your doctor if you observe: Shortness of breath, Chest pain, Increased palpitations (irregular heartbeat) Allergies/Adverse Reactions: Allergies loratadine Allergy (Verified 08/31/19 13:40) Unknown tape Allergy (Uncoded 08/06/19 20:11) Rash Medications to take at Discharge Amlodipine Besylate 5 mg PO BID 08/06/19 Atorvastatin Calcium 40 mg PO DAILY 08/06/19 Calcitriol 0.25 mg PO DAILY 08/06/19 Citalopram [Celexa] 40 mg PO DAILY 08/06/19 Clopidogrel Bisulfate [Clopidogrel] 75 mg PO DAILY 08/06/19 Acetaminophen [Tylenol Tablet] 650 mg PO Q6H PRN PRN tab 08/11/19 Cetirizine HCl 10 mg PO QHS 08/31/19 Omeprazole 40 mg PO QHS 08/31/19 Zolpidem Tartrate 10 mg PO QHS 08/31/19 Apixaban [Eliquis] 5 mg PO BID #60 tab 09/11/19 Carvedilol [Coreg (Beta Karen)] 3.125 mg PO BID #60 tab 09/11/19 Nystatin Powder [Mycostatin Powder] 1 applic TOPICAL TID bottle 09/11/19 The following prescriptions were given: Carvedilol [Coreg (Beta Karen)] 3.125 mg PO BID #60 tab Transmission Status: Sent to [facility] Apixaban [Eliquis] 5 mg PO BID #60 tab Transmission Status: Pending to [facility] Primary Care Physician: Citlali Nguyen NP-C [Primary Care Provider] - Please follow up with your Primary Care Physician in: 1-2 weeks Test Results: Test results from this visit will be discussed in further detail at your follow-up appointment, if applicable. Please Follow Up With: Nephrology When: as directed Please Follow Up With: Loki Ozuna MD When: as directed Proposed Discharge Date: 09/11/19
--- NOTE | 2019-09-11 11:50 | CASEMGMT ---
Pt to be sent home on Eliquis at discharge and med e-scribed to [facility] previously. [place] [facility] [place] she states that pt has no co-pay for Eliquis at this time. Call to [facility]placed by [facility] to notify of pt OBS admission and discharge and per rep, pt has not seen PCP in over a year and they are refusing to sign for HHC at this time. This RN CM into room to discuss with pt and this RN CM expressed the importance of f/u with PCP kisha after discharge for HHC and home oxygen orders to be signed, pt voices understanding at this time. This RN CM also advised Temitope GILBERT of same so that she can reinforce with family with discharge instructions, voices understanding. D/C summary faxed to [facility] at this time. Josselyn GILBERT CM
--- NOTE | 2019-09-11 12:10 | PHA.DC.MC ---
Pharmacy Service has performed discharge medication reconciliation and counseling for this patient. 1. APIXABAN 5MG PO BID 2. CARVEDILOL 3.125MG PO BID The patient's discharge medication list was reviewed for discrepancies and discrepancies were resolved. Home Medications Amlodipine Besylate 5 mg PO BID 08/06/19 Atorvastatin Calcium 40 mg PO DAILY 08/06/19 Calcitriol 0.25 mg PO DAILY 08/06/19 Citalopram [Celexa] 40 mg PO DAILY 08/06/19 Clopidogrel Bisulfate [Clopidogrel] 75 mg PO DAILY 08/06/19 Acetaminophen [Tylenol Tablet] 650 mg PO Q6H PRN PRN tab 08/11/19 Cetirizine HCl 10 mg PO QHS 08/31/19 Omeprazole 40 mg PO QHS 08/31/19 Zolpidem Tartrate 10 mg PO QHS 08/31/19 Apixaban [Eliquis] 5 mg PO BID #60 tab 09/11/19 Carvedilol [Coreg (Beta Karen)] 3.125 mg PO BID #60 tab 09/11/19 Nystatin Powder [Mycostatin Powder] 1 applic TOPICAL TID bottle 09/11/19 The patient was counseled on the following discharge medications and changes in medications for homegoing were reviewed. The Reason for Use, instructions for use, and potential side effects were reviewed for all new medications. The patient's questions regarding all of their medications were answered. The patient was able to verbally demonstrate an understanding of their discharge medications.
[2019-09-11] MEDS: amLODIPine 5 MG Tablet PO (12:20)
[2019-09-11] MEDS: Citalopram 40 MG TABLET PO (12:20)
[2019-09-11] MEDS: Clopidogrel Bisulfate 75 MG Tablet PO (12:20)
[2019-09-11] MEDS: Heparin Injection (Vial) 5,000 UNIT/ML VIAL 5000 UNIT SC (12:20)
[2019-09-11] MEDS: Carvedilol 3.125 MG TABLET PO (12:20)
[2019-09-11] MEDS: Fluconazole 100 MG Tablet 200 MG PO (12:20)
--- NOTE | 2019-09-11 12:38 | PN.RENAL_ITS ---
Patient Problems: Active and Suspected Problems (Last Updated 09/03/19 @ 10:56 by Moe Wise DO) Atrial fibrillation (Acute) Pulmonary hypertension (Acute) Subjective: dialysis last night with 3L fluid removal. Underwent dobut stress test today for new onset afib. Stress test negative for ischemia. Started on eliquis and coreg per cardiology. - Physical Exam Vitals/I&O's: Vital Signs Temp Pulse Resp BP Pulse Ox 98.2 F 87 18 173/59 H 98 09/11/19 12:14 09/11/19 12:14 09/11/19 12:14 09/11/19 12:14 09/11/19 12:14 Oxygen Flow Rate (L/min) 2 Oxygen Delivery Method Nasal Cannula Weight: 98.7 kg Body Mass Index (BMI) 40.5 Intake and Output for Last 24 Hours 09/09/19 09/10/19 09/11/19 23:59 23:59 23:59 Intake Total 1036.67 / 1276.67 1220 / 1220 Output Total 3000 / 3000 100 / 100 Balance -1963.33 / -1723.33 1120 / 1120 General: Alert, Oriented x3, Cooperative Lungs: Clear to auscultation Cardiovascular: Regular rate Extremities: No edema Laboratory Results 09/10/19 12:41: POC Glucose 85 09/10/19 17:18: POC Glucose 144 H 09/10/19 21:57: POC Glucose 116 H 09/11/19 01:31: POC Glucose 161 H 09/11/19 06:08: POC Glucose 111 H 09/11/19 06:25: Sodium 138, Potassium 3.6, Chloride 107, Carbon Dioxide 26.0, Anion Gap 5, BUN 30 H, Creatinine 2.17 H, Estim Creat Clear Calc 19.08, Est GFR (MDRD) Af Amer 29 L, Est GFR (MDRD) Non-Af 24 L, BUN/Creatinine Ratio 13.8, Glucose 118 H, Calcium 8.1 L 09/11/19 06:25: Triglycerides 67, Cholesterol 94, LDL Cholesterol 35, VLDL Cholesterol 13, HDL Cholesterol 46, TSH 1.86 Current Medications Acetaminophen (Tylenol) 650 mg PO Q6H PRN PRN PRN Reason: Pain Score 1-10/Temp > 100.7 F Last Admin: 09/10/19 18:34 Dose: 650 mg Documented by: Amlodipine Besylate (Norvasc) 5 mg PO BID [facility] Last Admin: 09/11/19 12:20 Dose: 5 mg Documented by: Calamine/Phenol (Calmoseptine Ointment) 1 applic TOPICAL TID [facility]; Protocol Last Admin: 09/11/19 06:22 Dose: 1 applicatio Documented by: Carvedilol (Coreg) 3.125 mg PO BID [facility] Last Admin: 09/11/19 12:20 Dose: 3.125 mg Documented by: Citalopram Hydrobromide (Celexa) 40 mg PO DAILY [facility] Last Admin: 09/11/19 12:20 Dose: 40 mg Documented by: Clopidogrel Bisulfate (Plavix) 75 mg PO DAILY [facility] Last Admin: 09/11/19 12:20 Dose: 75 mg Documented by: Dextrose (D50w Syringe) 0 gm IV X1 PRN; Protocol PRN Reason: Hypoglycemia Glucagon () 1 mg IM .X1 PRN PRN Reason: Hypoglycemia Heparin Sodium (Porcine) (Heparin Na) 5,000 unit SC Q12 [facility] Last Admin: 09/11/19 12:20 Dose: 5,000 unit Documented by: Dextrose/Sodium Chloride (Dextrose 5%/0.9% Nacl) 1,000 mls @ 50 mls/hr IV .Q20H [facility] Last Admin: 09/11/19 09:00 Dose: 50 mls/hr Documented by: Insulin Human Lispro (Humalog Kwikpen (Bkc)) 0 unit SC Q4 [facility]; Protocol Last Admin: 09/11/19 12:11 Dose: Not Given Documented by: Ketorolac Tromethamine (Toradol (Bkc)) 15 mg IM TID PRN PRN Reason: Pain Score 1-05/10 Stop: 09/16/19 00:40 Last Admin: 09/11/19 01:22 Dose: 15 mg Documented by: Nystatin (Mycostatin Powder) 1 applic TOPICAL TID [facility]; Protocol Last Admin: 09/11/19 06:22 Dose: 1 applicatio Documented by: Pantoprazole Sodium (Protonix) 40 mg PO QHS [facility] Last Admin: 09/10/19 22:01 Dose: Not Given Documented by: Sodium Chloride () 10 - 40 ml IV UD PRN PRN Reason: SALINE FLUSH Last Admin: 09/10/19 13:57 Dose: 10 ml Documented by: Zolpidem Tartrate (Ambien (Generic)) 5 mg PO QHS [facility] Last Admin: 09/10/19 22:01 Dose: Not Given Documented by: Medical Necessity - Tobacco Use Smoking Status: Former smoker Tobacco Use: Non-smoker Assessment/Plan All Active Problems (Last Updated 09/03/19 @ 10:56 by Moe Wise DO) Atrial fibrillation (Acute) Pulmonary hypertension (Acute) Noncompliance of patient with renal dialysis (Acute) Problem with dialysis access (Acute) MRSA bacteremia (Acute) Hyperkalemia (Ruled-out) Pulmonary edema (Acute) Sepsis (Resolved) 1 ESRD HD today MWF 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 Hypoglycemia due to oral hypoglycemic agents resolved 3. anemia heather 4. recent MRSA line sepsis s/p new TDC. Blood cx no growth on 08/30. 5. afib stress test negative
[2019-09-11 13:20] LABS: Bedside Glucose 101 mg/dL (70-110)
--- NOTE | 2019-09-11 14:11 | DS.PCM_ITS ---
Discharge Date and Diagnosis - Problem List Patient Problems: Active and Suspected Problems (Last Updated 09/03/19 @ 10:56 by Moe Wise DO) Atrial fibrillation (Acute) Pulmonary hypertension (Acute) Date of Admission: 09/10/19 Date of Discharge: 09/11/19 - Primary Discharge Diagnosis Active and Suspected Problems (Last Updated 09/03/19 @ 10:56 by Moe Wise DO) Hypoglycemia 2/2 accidental medication use paroxysmal Atrial fibrillation Pulmonary hypertension ESRD DMt2 HTN HLD GERD recent bacteremia MRSA resolved 2/2 infected dialysis cath - Secondary Discharge Diagnosis Chronic Problems (Last Updated 09/03/19 @ 10:56 by Moe Wise DO) Anemia in chronic kidney disease (Chronic) Morbid obesity (Chronic) Hypertension (Chronic) Hyperlipidemia (Chronic) GERD (gastroesophageal reflux disease) (Chronic) Anxiety and depression (Chronic) DM type 2 causing ESRD (Chronic) ESRD (end stage renal disease) on dialysis (Chronic) Hospital Course and Treatment Imaging Results: 09/11/19 07:10 CXR [Chest 1 View (Portable)] [RAD] Urgent 09/11/19 08:31 Stress Test Echo W/Contrast [ECHO] Routine Interpretation Summary The estimated ejection fraction is 65 %. Normal, adequate, dobutamine echocardiogram. Negative for ischemia by EKG and echocardiographic criteria. No anginal symptoms noted. Baseline atrial fibrillation with rare PVCs during infusion. Appropriate blood pressure response to dobutamine. Test terminated due to the attainment of target heart rate. Final LVEF is 75%. Decreased sensitivity due to baseline atrial fibrillation, and difficult echo windows requiring Definity enhancement. Patient tolerated the procedure well. No complications. The study was technically difficult. Contrast injection was performed. Consultations 09/11/19 05:59 Consult: Onc/Wound/clamp operator Routine Comment: Reason for Consult:: EXCORIATION W/MULTIPLE OPEN AREAS IN TELLO-AREA Nephrology - [place] [facility] [place] Operations: None Procedures: Dialysis, Stress test Summary of Care Provided: Hospital course: The patient is a 69 year old F with past medical history of recent admission for bacteremia secondary to infected dialysis cath with MRSA, resolved, ESRD, type 2 diabetes, not on home [id number], who presented to the emergency room with complaints of hypoglycemia. She had filled a prescription for an oral diabetic medication glipizide the day before and accidentally took a dose-10 mg. The next morning she was experiencing lightheadedness, paresthesias, diaphoretic, and difficulty speaking. She went to [place] [facility]. On the way she received oral glucose with EMS, in the ER she received D50. She still had somewhat low blood sugars and was transferred to [facility]. She was placed on D5 normal saline and monitored on telemetry. Dial ysis was provided by Dr. Schwartz. Her blood sugars remained stable however overnight she developed atrial fibrillation. Cardiology was consulted. The patient went for a stress test which was negative. Repeat echo was deferred as she just had 1 in August. She was placed on Coreg and Eliquis as she had some mild tachycardia and an elevated chads vas to score. She was discharged in stable condition. She will need to follow-up with nephrology as directed, cardiology as directed, her PCP in 1 to 2 weeks. This patient was seen by Franki Patel PA-C under the supervision of Doctor Talley. [] Patient Problems: Active and Suspected Problems (Last Updated 09/03/19 @ 10:56 by Moe Wise DO) Atrial fibrillation (Acute) Pulmonary hypertension (Acute) - Physical Exam Vitals/I&O's: Vital Signs Temp Pulse Resp BP Pulse Ox 98.2 F 87 18 173/59 H 98 09/11/19 12:14 09/11/19 12:14 09/11/19 12:14 09/11/19 12:14 09/11/19 12:14 Oxygen Flow Rate (L/min) 2 Oxygen Delivery Method Nasal Cannula Weight: 217 lb 9.54 oz Body Mass Index (BMI) 40.5 Intake and Output for Last 24 Hours 09/09/19 09/10/19 09/11/19 23:59 23:59 23:59 Intake Total 1036.67 / 1276.67 1220 / 1220 Output Total 3000 / 3000 100 / 100 Balance -1963.33 / -1723.33 1120 / 1120 General: Alert, Oriented x3, Cooperative HEENT: Atraumatic, PERRLA, EOMI, Normocephalic Neck: Supple, No JVD, Negative Carotid Bruits Lungs: Clear to auscultation, Normal air movement Cardiovascular: Regular rate, No murmurs Abdomen: Bowel Sounds Present, Soft, Non Tender Extremities: No edema, Capillary Refill Less than 3 Seconds Skin: No rashes, No breakdown Musculoskeletal: No Tenderness to Palpation of Joints or Extremities Neurological: Cranial nerves II-XII grossly intact Psych/Mental Status: Normal Affect, Appropriate, Alert and oriented to time, place, person, mood and affect Laboratory Results 09/10/19 17:18: POC Glucose 144 H 09/10/19 21:57: POC Glucose 116 H 09/11/19 01:31: POC Glucose 161 H 09/11/19 06:08: POC Glucose 111 H 09/11/19 06:25: Sodium 138, Potassium 3.6, Chloride 107, Carbon Dioxide 26.0, Anion Gap 5, BUN 30 H, Creatinine 2.17 H, Estim Creat Clear Calc 19.08, Est GFR (MDRD) Af Amer 29 L, Est GFR (MDRD) Non-Af 24 L, BUN/Creatinine Ratio 13.8, Glucose 118 H, Calcium 8.1 L 09/11/19 06:25: Triglycerides 67, Cholesterol 94, LDL Cholesterol 35, VLDL Cholesterol 13, HDL Cholesterol 46, TSH 1.86 09/11/19 12:10: POC Glucose 101 Current Medications Acetaminophen (Tylenol) 650 mg PO Q6H PRN PRN PRN Reason: Pain Score 1-10/Temp > 100.7 F Last Admin: 09/10/19 18:34 Dose: 650 mg Documented by: Amlodipine Besylate (Norvasc) 5 mg PO BID [facility] Last Admin: 09/11/19 12:20 Dose: 5 mg Documented by: Calamine/Phenol (Calmoseptine Ointment) 1 applic TOPICAL TID [facility]; Protocol Last Admin: 09/11/19 06:22 Dose: 1 applicatio Documented by: Carvedilol (Coreg) 3.125 mg PO BID [facility] Last Admin: 09/11/19 12:20 Dose: 3.125 mg Documented by: Citalopram Hydrobromide (Celexa) 40 mg PO DAILY [facility] Last Admin: 09/11/19 12:20 Dose: 40 mg Documented by: Clopidogrel Bisulfate (Plavix) 75 mg PO DAILY [facility] Last Admin: 09/11/19 12:20 Dose: 75 mg Documented by: Dextrose (D50w Syringe) 0 gm IV X1 PRN; Protocol PRN Reason: Hypoglycemia Glucagon () 1 mg IM .X1 PRN PRN Reason: Hypoglycemia Heparin Sodium (Porcine) (Heparin Na) 5,000 unit SC Q12 [facility] Last Admin: 09/11/19 12:20 Dose: 5,000 unit Documented by: Dextrose/Sodium Chloride (Dextrose 5%/0.9% Nacl) 1,000 mls @ 50 mls/hr IV .Q20H [facility] Last Admin: 09/11/19 09:00 Dose: 50 mls/hr Documented by: Insulin Human Lispro (Humalog Kwikpen (Bk)) 0 unit SC Q4 [facility]; Protocol Last Admin: 09/11/19 12:11 Dose: Not Given Documented by: Ketorolac Tromethamine (Toradol (Bkc)) 15 mg IM TID PRN PRN Reason: Pain Score -05/10 Stop: 09/16/19 00:40 Last Admin: 09/11/19 01:22 Dose: 15 mg Documented by: Nystatin (Mycostatin Powder) 1 applic TOPICAL TID [facility]; Protocol Last Admin: 09/11/19 06:22 Dose: 1 applicatio Documented by: Pantoprazole Sodium (Protonix) 40 mg PO QHS [facility] Last Admin: 09/10/19 22:01 Dose: Not Given Documented by: Sodium Chloride () 10 - 40 ml IV UD PRN PRN Reason: SALINE FLUSH Last Admin: 09/10/19 13:57 Dose: 10 ml Documented by: Zolpidem Tartrate (Ambien (Generic)) 5 mg PO QHS [facility] Last Admin: 09/10/19 22:01 Dose: Not Given Documented by: Discharge Diet: Low fat/ Low Cholesterol, 2000 mg Sodium Diet Discharge Activity: Return to Normal Activity, May Not Drive Call your doctor if you observe: Shortness of breath, Chest pain, Increased palpitations (irregular heartbeat) Home Medications: Medications to take at Discharge Amlodipine Besylate 5 mg PO BID 08/06/19 Atorvastatin Calcium 40 mg PO DAILY 08/06/19 Calcitriol 0.25 mg PO DAILY 08/06/19 Citalopram [Celexa] 40 mg PO DAILY 08/06/19 Clopidogrel Bisulfate [Clopidogrel] 75 mg PO DAILY 08/06/19 Acetaminophen [Tylenol Tablet] 650 mg PO Q6H PRN PRN tab 08/11/19 Cetirizine HCl 10 mg PO QHS 08/31/19 Omeprazole 40 mg PO QHS 08/31/19 Zolpidem Tartrate 10 mg PO QHS 08/31/19 Apixaban [Eliquis] 5 mg PO BID #60 tab 09/11/19 Carvedilol [Coreg (Beta Karen)] 3.125 mg PO BID #60 tab 09/11/19 Nystatin Powder [Mycostatin Powder] 1 applic TOPICAL TID bottle 09/11/19 Following Prescrptions Were Given to Patient: Carvedilol [Coreg (Beta Karen)] 3.125 mg PO BID #60 tab Transmission Status: Sent to [facility] Apixaban [Eliquis] 5 mg PO BID #60 tab Transmission Status: Sent to [facility] Primary Care Physician: Citlali Nguyen, [employer]-C [Primary Care Provider] - Please follow up with your Primary Care Physician in: 1-2 weeks Please Follow Up With: Nephrology When: as directed Please Follow Up With: Loki Ozuna MD When: as directed Disposition: Home Minutes spent on discharge:: 35 Patient Condition:: Stable Medical Necessity - Tobacco Use Smoking Status: Former smoker Tobacco Use: Non-smoker Meaningful Use Info Meaningful Use Diagnoses (Choose all that apply): None applicable
[2019-09-11 15:26] LABS: Bedside Glucose 140 mg/dL (70-110)
--- NOTE | 2019-09-11 17:59 | NURSING ---
While giving dc instructions this RN asked if patient's family members brought her portable 02 tank and they state they did not. This RN asked if someone could go get them but they refused. Patient states she has traveled without her 02 before and it's only a [address], I'll be fine. This RN stressed the importance of maintaining adequate oxygen saturations for her body. Again, they decline to retrieve the oxygen.
--- NOTE | 2019-09-18 09:57 | CASEMGMT ---
Call from [facility] and they state that pt has been discharged per family request at this time. Josselyn GILBERT CM
== END 2019-09-11 10:35 | disposition home health service (06) ==
PROVIDERS: Internal Medicine Cardiovascular Disease; Physician Assistant; Admitting Provider Family Medicine; PCP Nurse Practitioner Family; Visit Provider Internal Medicine
DX: E11.649 Type 2 diabetes mellitus with hypoglycemia without coma (principal); I27.20 Pulmonary hypertension, unspecified; I48.0 Paroxysmal atrial fibrillation; E11.22 Type 2 diabetes mellitus with diabetic chronic kidney disease; I12.0 Hypertensive chronic kidney disease with stage 5 chronic kidney disease or end stage renal disease; N18.6 End stage renal disease; E78.5 Hyperlipidemia, unspecified; K21.9 Gastro-esophageal reflux disease without esophagitis; B37.3 Candidiasis of vulva and vagina; R42 Dizziness and giddiness; I48.92 Unspecified atrial flutter; R20.0 Anesthesia of skin; I49.3 Ventricular premature depolarization; E66.01 Morbid (severe) obesity due to excess calories; D63.1 Anemia in chronic kidney disease; F41.9 Anxiety disorder, unspecified; T38.3X5A Adverse effect of insulin and oral hypoglycemic [antidiabetic] drugs, initial encounter; R00.0 Tachycardia, unspecified; F32.9 Major depressive disorder, single episode, unspecified; Z68.41 Body mass index [BMI] 40.0-44.9, adult; Z99.2 Dependence on renal dialysis; Z71.3 Dietary counseling and surveillance; Z79.899 Other long term (current) drug therapy; Z79.02 Long term (current) use of antithrombotics/antiplatelets; Z87.891 Personal history of nicotine dependence; Z91.15 Patient's noncompliance with renal dialysis; M19.90 Unspecified osteoarthritis, unspecified site; R41.0 Disorientation, unspecified; J81.0 Acute pulmonary edema; R53.1 Weakness; R01.1 Cardiac murmur, unspecified; R94.31 Abnormal electrocardiogram [ECG] [EKG]
CPT/HCPCS: 36415; 71045; 80048; 80061; 82962; 84443; 90937; 93005; 93017; 93350; 96361; 96372; 96374; 99218; J7030; J7040; Q9957; A4216; C8928; G0257; G0378; G0379; Q5106

== ENCOUNTER 2019-10-18 08:42 | Day surgery (SDC) | payer MEDICARE, MEDICAID, SELFPAY ==
[2019-10-09 14:39] VITALS: BMI 40.5
--- NOTE | 2019-10-10 12:55 | HP_ITS ---
Intake Vital Signs 10/09/19 BMI 40.5 10/09/19 Height 5 ft 2 in 10/09/19 Weight: 207 lb 10/09/19 BMI 37.8 10/09/19 BP 169/66 H 10/09/19 Blood Pressure Location Rt brachial 10/09/19 Position Sitting 10/09/19 Respiration 18 10/09/19 Pulse Oximetry (%) 96 10/09/19 Oxygen Delivery Method nasal canula 10/09/19 Oxygen Flow Rate (L/min) 3 Intake Visit Reasons: cath exchange Chief Complaint: low blood sugar Bridge Crew Member Required: No Is patient in pain?: No Allergies loratadine Allergy (Verified 10/09/19 14:39) Unknown tape Allergy (Uncoded 10/09/19 14:39) Rash Medications Amlodipine Besylate 5 mg PO BID 08/06/19 [History Confirmed 10/09/19] Atorvastatin Calcium 40 mg PO DAILY 08/06/19 [History Confirmed 10/09/19] Calcitriol 0.25 mg PO DAILY 08/06/19 [History Confirmed 10/09/19] Citalopram [Celexa] 40 mg PO DAILY 08/06/19 [History Confirmed 10/09/19] Clopidogrel Bisulfate [Clopidogrel] 75 mg PO DAILY 08/06/19 [History Confirmed 10/09/19] Acetaminophen [Tylenol Tablet] 650 mg PO Q6H PRN PRN tab 08/11/19 [Rx Confirmed 10/09/19] Cetirizine HCl 10 mg PO QHS 08/31/19 [History Confirmed 10/09/19] Omeprazole 40 mg PO QHS 08/31/19 [History Confirmed 10/09/19] Zolpidem Tartrate 10 mg PO QHS 08/31/19 [History Confirmed 10/09/19] Apixaban [Eliquis] 5 mg PO BID #60 tab 09/11/19 [Rx Confirmed 10/09/19] Carvedilol [Coreg (Beta Karen)] 3.125 mg PO BID #60 tab 09/11/19 [Rx Confirmed 10/09/19] Nystatin Powder [Mycostatin Powder] 1 applic TOPICAL TID bottle 09/11/19 [Rx Confirmed 10/09/19] PFSH Medical History Problem with dialysis access (Acute) MRSA bacteremia (Acute) Anemia in chronic kidney disease (Chronic) Hyperkalemia (Ruled-out) Morbid obesity (Chronic) Hypertension (Chronic) Hyperlipidemia (Chronic) GERD (gastroesophageal reflux disease) (Chronic) Anxiety and depression (Chronic) Pulmonary edema (Acute) DM type 2 causing ESRD (Chronic) ESRD (end stage renal disease) on dialysis (Chronic) Sepsis (Resolved) Diet-controlled diabetes mellitus (Acute) ESRD (end stage renal disease) (Acute) HTN (hypertension) (Chronic) Surgical History S/P breast biopsy (Acute) S/P gastric bypass (Acute) S/P hysterectomy (Acute) S/P laparoscopic cholecystectomy (Acute) Social History (Updated 10/10/19 @ 12:[address] Toro Noriega MD) Smoking Status: Former smoker alcohol intake: never HPI HPI HPI: HARIS OSORIO, is a 69 F who presents to the office today for HPI HPI Surgical H&P: Yes HPI: HARIS OSORIO, is a 69 F who presents to the office today for Chest catheter exchange. The patient has a left tunneled temporary dialysis catheter which has been used but they are reporting that it is running very slowly. Patient has no permanent access. Patient has a chronic cough which he says is due to an abdominal surgery. ROS General General: Yes weight change and fatigue; no appetite, colon cancer, breast cancer or weakness HEENT HEENT: Yes difficulty swallowing and eye surgery; no eye injury, swollen glands or hoarseness Endo Endocrine: Yes diabetes mellitus; no thyroid disease, thyroid cancer, Hair loss, heat intolerance or cold intolerance Skin Skin: No rash or changing moles Breast Breast: No left breast lump, right breast lump, nipple discharge, breast pain, abnormal mammogram, abnormal US or breast enlargement Musc Musculoskeletal: Yes back problems, arthritis and rheumatoid arthritis; no gout or joint pain Cardio Cardiovascular: Yes high blood pressure, heart attack and heart stent; no murmur, pacemaker, heart disease, atrial fibrillation, palpitations, shortness of breat with exertion or chest pain Psych Psychiatric: Yes depression and anxiety; no hearing voices Resp Respiratory: Yes shortness of breath, No sleep apnea, Yes cough, Yes COPD, No asthma, No emphysema, No wheezing Gastro Gastrointestinal: No abdominal pain, Yes nausea or vomiting, Yes diarrhea, No constipation, No blood in stool, Yes acid reflux, No hemorrhoids, No ulcers, No gallbladder problem, No black,tarry stools Deshaun Hematologic: Yes blood thinners, No blood disorders, No bleeding, No anemia, No blood clots Neuro Neurologic: No weakness Exam Const General: cooperative, ill appearing Orientation: alert Chest Breast Palpation: No nipple discharge Other: Left chest catheter in place Resp Effort & Inspection: normal respiratory effort Auscultation: clear to auscultation bilaterally Cardio Rate: regular rate Rhythm: regular rhythm Heart Sounds: no murmurs GI Inspection: non-distended Palpation: soft, nontender Assessment & Plan Problems 1. ESRD (end stage renal disease) on dialysis N18.6; Z99.2 Plan Patient has an indwelling temporary dialysis catheter in the left chest. It is not working well. The dialysis center is requesting an exchange. I would recommend placing a new catheter on the right and removing the left catheter. I would do this in the operating room and she may need general anesthesia as her last one was put in under general. The patient is on Eliquis and Plavix and I am asking her collections and archives director and PCP for permission to come off of this for surgery. I discussed the risks of the surgery as well as the benefits. I discussed the risks of bleeding, infection, pneumothorax, general anesthesia. The patient understands the risks and is willing to proceed. Once I get her permission to come off of her blood thinners I will get her scheduled. Toro Noriega MD Pager: [facility] [address] [place] [address], [address] [place] [address] Office: Coding Level of Care Code Off vis,est,level 3 Diagnoses ESRD (end stage renal disease) on dialysis N18.6; Z99.2 10/10/19 2255 <Electronically signed by Toro garcia MD> Date _ Toro Noriega MD I have re-examined the patient. There are no clinical changes since date of exam.
[2019-10-18] VITALS (7 sets, daily range): BP systolic 80–146; BP diastolic 50–62; PULSE 73–93; RESP 16–18; TEMP 36.3–36.4; O2SAT 97–100; BMI 37.8
[2019-10-18] MEDS: Lactated Ringers 1,000 ML 100 ML IV (09:45)
[2019-10-18 11:06] LABS: Bedside Glucose 105 mg/dL (70-110)
[2019-10-18] MEDS: Cefazolin 2 GM in 0.9% Normal Saline 100 ML IV (11:09)
[2019-10-18] MEDS: Heparin 10,000 UNITS/10 ML Vial 10000 UNITS (11:47)
--- NOTE | 2019-10-18 12:28 | RAD_ITS ---
STUDY: X-RAY CHEST REASON FOR EXAM: Female, 69 years old. POST OP HEMODIALYSIS CATH PLACEMENT RIGHT SIDE, LEFT SIDE REMOVED TECHNIQUE: Single AP portable view of the chest. COMPARISON: 09/11/2019. FINDINGS: Status post removal of left dialysis catheter. There is a new dialysis catheter entering the right IJ and terminating in the mid SVC. No pneumothorax. Moderate lung volumes. Lungs are clear. No evidence of congestive failure. No focal infiltrates. No pleural effusions. Moderate cardiomegaly. Normal mediastinum and magalie. Normal visualized pulmonary arteries. There is atherosclerotic calcification of the aortic arch with tortuosity. Normal visualized thoracic spine. Normal visualized ribs, clavicles, and shoulders. There is no demonstrated abnormality of the visualized soft tissue structures of the upper abdomen. RAD/CXR for Line Placement IMPRESSION: Right dialysis catheter terminates in the mid SVC. No other changes or acute abnormalities. Electronically Signed: Sean Hamilton MD at 14:22 EDT , Service support ,
--- NOTE | 2019-10-18 12:43 | PCM.OPRPT ---
Problem List (1) Problem with dialysis access Status: Acute Report of Operation Date of Procedure: 10/18/19 Pre-Operative Diagnosis: Nonfunctioning left temporary dialysis catheter Post-Operative Diagnosis: Same Surgery/Procedure Performed:: 1. Ultrasound and fluoroscopy guided right tunneled temporary dialysis catheter placement. 2. Removal of left tunneled dialysis catheter Specimen's removed: Tip from left tunneled dialysis catheter for culture Description of Procedure: Patient was brought to the operating room and general anesthesia was induced. The right chest was prepped and draped in usual sterile fashion. Ultrasound was used to localize the right IJ. Local anesthetic was injected and a small flaquita was made with a scalpel. Access needle and guidewire were used to access the right IJ under ultrasound guidance. Fluoroscopy used to confirm placement in the vena cava. Next serial dilators were used over the guidewire and then the peel-away sheath was placed over the guidewire. This was done under fluoroscopic guidance. An incision was made in the right chest and the catheter was tunneled through the subcutaneous tissue to the neck incision and then the tunneler was removed and the catheter. The cuff was placed under the skin and then the catheter was placed through the peel-away sheath and the peel-away sheath was removed. Fluoroscopy was used to ensure the catheter was not kinked and in place. The catheters were then aspirated and then flushed with saline. They were both working well. They were then both flushed with 2 cc of heparin each. The catheter was sutured to the skin using 2-0 nylon suture. The right neck incision was closed with a single 3-0 Vicryl suture. Steri-Strips were applied and a dressing was placed over the skin insertion site. Next and she was paid to the left chest catheter. It was prepped with Betadine and hemostats were used to dissect the cuff free. Once the catheter was loose it was removed. Bandage was placed over the exit site. Patient was extubated taken to PACU in stable condition. Grafts/Implants Used: Curved palindrome short temporary dialysis catheter - Admit VTE Documentation VTE Mechan Device Prophylaxis: SCD's
--- NOTE | 2019-10-18 12:47 | DCINST_ITS ---
Discharge Diet: No Restrictions - Pain medication may cause nausea. You should typically eat light foods as you take your pain medication. Discharge Activity: Return to Normal Activity, May Shower - with your bandage in place in 1-2 days after surgery. Call your doctor if your incision/area has: Continuous Slow Oozing, Sudden Increased Bleeding, Increased Pain/ Swelling, Increased Redness Call your doctor if you observe: Fever of 101 or Higher Remove Dressing in (days):: 3 Allergies/Adverse Reactions: Allergies loratadine Allergy (Verified 10/16/19 14:36) Unknown tape Allergy (Uncoded 10/16/19 14:36) Rash Medications to take at Discharge Amlodipine Besylate 5 mg PO BID 08/06/19 Citalopram [Celexa] 40 mg PO DAILY 08/06/19 Clopidogrel Bisulfate [Clopidogrel] 75 mg PO DAILY 08/06/19 Acetaminophen [Tylenol Tablet] 650 mg PO Q6H PRN PRN tab 08/11/19 Cetirizine HCl 10 mg PO QHS 08/31/19 Omeprazole 40 mg PO QHS 08/31/19 Zolpidem Tartrate 10 mg PO QHS 08/31/19 Apixaban [Eliquis] 5 mg PO BID #60 tab 09/11/19 Carvedilol [Coreg (Beta Karen)] 3.125 mg PO BID #60 tab 09/11/19 Atorvastatin Calcium [Lipitor] 40 mg PO QHS 10/16/19 Nystatin Powder [Mycostatin Powder] 1 applic TOPICAL TID PRN 10/16/19 Primary Care Physician: Care Physician,No Primary [Primary Care Provider] - Test Results: Test results from this visit will be discussed in further detail at your follow- up appointment, if applicable.
== END 2019-10-18 13:20 | disposition home or self-care (01) ==
LOC: SDC 08:45 → AC 08:45
PROVIDERS: Referring Provider Surgery; Visit Provider Surgery
PROC: (CPT 36558; principal; 2019-10-18 10:15)
DX: N18.6 End stage renal disease (principal); I25.10 Atherosclerotic heart disease of native coronary artery without angina pectoris; I48.91 Unspecified atrial fibrillation; I10 Essential (primary) hypertension; I25.2 Old myocardial infarction; Z95.5 Presence of coronary angioplasty implant and graft; Z85.3 Personal history of malignant neoplasm of breast; Z87.891 Personal history of nicotine dependence; Z99.2 Dependence on renal dialysis; Z79.02 Long term (current) use of antithrombotics/antiplatelets; Z79.01 Long term (current) use of anticoagulants; Z85.43 Personal history of malignant neoplasm of ovary
CPT/HCPCS: 36558; 36589; 71045; 76000; 82962; 87070; 87075; 87205; J7120; C1750; J2405